=== PATIENT | female | born 1990 | race Caucasian/White ===

== ENCOUNTER 2020-02-14 08:45 | Outpatient (REF) | payer BC, SELFPAY | END 2020-02-14 08:46 | disposition home or self-care (01) | LOC: HO.HMGCLDS 08:45 | PROVIDERS: PCP Nurse Practitioner Family; Visit Provider Internal Medicine | DX: Z20.828 Contact with and (suspected) exposure to other viral communicable diseases (principal) | CPT/HCPCS: C9803; U0003 ==

== ENCOUNTER 2020-02-26 06:13 | Outpatient (REF) | payer BC, SELFPAY ==
[2020-02-26 11:38] LABS: Alanine Aminotransferase 12 U/L (0-31); Albumin Level 4.2 g/dL (3.5-5.0); Alkaline Phosphatase 62 U/L (39-117); Anion Gap 13 (12-20); Aspartate Amino Transferase 13 U/L (5-31); Bilirubin Total 0.6 mg/dL (0.0-1.0); Blood Urea Nitrogen 9 mg/dL (9-16); Calcium 9.1 mg/dL (8.4-10.2); Carbon Dioxide 26 mmol/L (22-29); Chloride 105 mmol/L (96-108); Estimated Glomerular Filt Rate > 60; Glucose Fasting 83 mg/dL (60-99); Potassium 4.3 mmol/l (3.3-5.1); Sodium 140 mmol/L (135-145); Total Protein 7.4 g/dL (6.5-8.0)
[2020-02-26 12:02] LABS: TSH reflex Free T4 6.54 mIU/mL (0.32-4.0)
[2020-02-26 12:45] LABS: Free T4 (Free Thyroxine) 0.83 ng/dL (0.71-1.85)
== END 2020-02-26 06:14 | disposition home or self-care (01) ==
LOC: HO.HMGCLDS 06:13
PROVIDERS: PCP Nurse Practitioner Family; Visit Provider Nurse Practitioner Family
DX: E03.9 Hypothyroidism, unspecified (principal)
CPT/HCPCS: 80053; 84439; 84443

== ENCOUNTER 2020-04-16 09:44 | Outpatient (REF) | payer BC, SELFPAY ==
--- NOTE | 2020-04-16 09:56 | XR_ITS ---
EXAMINATION: XR CHEST CLINICAL INFORMATION: Epigastric pain COMPARISON: Previous chest x-ray June 2018 TECHNIQUE: 2 views of the chest were obtained. FINDINGS: No significant abnormality is noted involving the heart, lungs, mediastinum, bony thorax or soft tissues. XR/XR chest 2V IMPRESSION: Unremarkable examination.
[2020-04-16 11:08] LABS: MANUAL DIFF FLAG NO
[2020-04-16 11:23] LABS: Basophils Absolute Auto 0.1 X10*3/uL (0.0-0.2); Basophils Percent Auto 1.1 % (0-2); Eosinophils Absolute Auto 0.1 X10*3/uL (0.0-0.4); Eosinophils Percent Auto 1.1 % (0-4); Hemoglobin 13.6 g/dl (12.0-16.0); Imm Gran Abs Auto 0.02 X10*3/uL (0.00-0.03); Imm Gran Pct Auto 0.3 % (0.0-0.4); Lymphocytes Absolute Auto 2.1 X10*3/uL (1.2-4.9); Lymphocytes Percent Auto 33.2 % (20-40); Mean Corpuscular HGB Conc 32.4 g/dl (31.0-35.0); Mean Corpuscular Hemoglobin 29.6 pg (27.0-33.0); Mean Corpuscular Volume 91.5 fL (80-98); Mean Platelet Volume 10.2 fL (9.4-12.3); Monocytes Absolute Auto 0.4 X10*3/uL (0.1-1.2); Monocytes Percent Auto 5.8 % (2-11); Neutrophils Absolute Auto 3.6 X10*3/uL (2.0-8.3); Neutrophils Percent Auto 58.5 % (45-73); Platelet Count 391 X10*3/uL (160-400); Red Blood Count 4.59 X10*6/uL (4.20-5.50); Red Cell Distribution Width 12.4 % (11.0-16.0); White Blood Count 6.2 X10*3/uL (4.8-10.8)
[2020-04-16 11:39] LABS: Troponin-I High Sensitivity < 3.5 ng/L (<3.5-17.0)
[2020-04-16 12:16] LABS: Alanine Aminotransferase 22 U/L (0-31); Albumin Level 4.4 g/dL (3.5-5.0); Alkaline Phosphatase 66 U/L (39-117); Anion Gap 14 (12-20); Bilirubin Total 0.5 mg/dL (0.0-1.0); Blood Urea Nitrogen 11 mg/dL (9-16); Calcium 9.3 mg/dL (8.4-10.2); Carbon Dioxide 25 mmol/L (22-29); Chloride 105 mmol/L (96-108); Estimated Glomerular Filt Rate > 60; Glucose Fasting 88 mg/dL (60-99); Potassium 4.1 mmol/l (3.3-5.1); Sodium 140 mmol/L (135-145); Total Protein 7.7 g/dL (6.5-8.0)
[2020-04-16 12:17] LABS: TSH reflex Free T4 3.49 mIU/mL (0.32-4.0)
[2020-04-16 12:26] LABS: Amylase 31 U/L (28-100); Lipase 22 U/L (8-78)
[2020-04-16 12:32] LABS: Aspartate Amino Transferase 17 U/L (5-31)
== END 2020-04-16 09:45 | disposition home or self-care (01) ==
LOC: HO.HMGCLDS 09:44
PROVIDERS: PCP Nurse Practitioner Family; Visit Provider Nurse Practitioner Family
DX: R10.13 Epigastric pain (principal); E03.9 Hypothyroidism, unspecified
CPT/HCPCS: 36415; 71046; 80053; 82150; 83690; 84443; 84484; 85025

== ENCOUNTER 2020-04-22 10:43 | Outpatient (REF) | payer BC, SELFPAY ==
--- NOTE | 2020-04-22 10:50 | US_ITS ---
EXAMINATION: US DIAGNOSTIC ULTRASOUND BREAST, LEFT CLINICAL INFORMATION: Palpable mass. COMPARISON: Mammography of same day and studies dating back to December 27, 2018. TECHNIQUE: Ultrasound of the breast is performed with real-time mccormack scale imaging and color Doppler. FINDINGS: Targeted left breast ultrasound was then performed in region of palpable abnormality. Region is approximately 8 to 9:00 position 8 cm from the nipple. No abnormal cystic or solid mass was identified. No abnormal region of distal sound shadowing. Results are discussed with the patient at time of visit. US/US breast LT limited IMPRESSION: No specific mammographic or ultrasound findings to suggest malignancy. ASSESSMENT: BI-RADS 1: Negative RECOMMENDATION: 1. Patient should be managed based on the clinical impression. 2. Otherwise, routine annual screening mammography.
--- NOTE | 2020-04-22 10:50 | MM_ITS ---
EXAMINATION: MM DIAGNOSTIC DIGITAL BREAST TOMOSYNTHESIS, BILATERAL Targeted left breast ultrasound CLINICAL INFORMATION: Left breast lump The lifetime risk of breast cancer based on the Tyrer-Cuzick Model is 9.2%. COMPARISON: Mammography: May 12, 2019 and studies dating back to December 27, 2018 TECHNIQUE: Digital breast tomosynthesis is performed in both the craniocaudal and mediolateral oblique views along with computer-aided detection (CAD). Synthesized 2D images are generated from the tomosynthesis. Targeted left breast ultrasound FINDINGS: There are scattered areas of fibroglandular density (ACR BI-RADS breast composition Category b). There are some anterior right breast vascular calcifications present. There is a stable well-circumscribed 4 mm deep superior left breast lesion 12:00 position. No new suspicious dominant mass or suspicious grouping of microcalcifications appreciated. Targeted left breast ultrasound was then performed in region of palpable abnormality. Region is approximately 8 to 9:00 position 8 cm from the nipple. No abnormal cystic or solid mass was identified. No abnormal region of distal sound shadowing. Results are discussed with the patient at time of visit. MM/MM tomosynthesis diagnostic BI IMPRESSION: No specific mammographic or ultrasound findings to suggest malignancy. ASSESSMENT: BI-RADS 1: Negative RECOMMENDATION: 1. Patient should be managed based on the clinical impression. 2. Otherwise, routine annual screening mammography. This patient's information was entered into a reminder system with a target due date for their next mammogram.
== END 2020-04-22 10:44 | disposition home or self-care (01) ==
LOC: HO.MAMMO 10:43
PROVIDERS: PCP Nurse Practitioner Family; Visit Provider Nurse Practitioner Family
DX: N63.20 Unspecified lump in the left breast, unspecified quadrant (principal)
CPT/HCPCS: 76642; 77062; 77066

== ENCOUNTER 2020-05-28 15:14 | Outpatient (REF) | payer BC, SELFPAY ==
[2020-05-28 16:31] LABS: MANUAL DIFF FLAG NO
[2020-05-28 16:35] LABS: Basophils Absolute Auto 0.1 X10*3/uL (0.0-0.2); Basophils Percent Auto 0.9 % (0-2); Eosinophils Absolute Auto 0.1 X10*3/uL (0.0-0.4); Eosinophils Percent Auto 0.8 % (0-4); Hematocrit 40.9 % (37-47); Hemoglobin 13.7 g/dl (12.0-16.0); Imm Gran Abs Auto 0.03 X10*3/uL (0.00-0.03); Imm Gran Pct Auto 0.4 % (0.0-0.4); Lymphocytes Absolute Auto 2.5 X10*3/uL (1.2-4.9); Mean Corpuscular HGB Conc 33.5 g/dl (31.0-35.0); Mean Corpuscular Hemoglobin 30.2 pg (27.0-33.0); Mean Corpuscular Volume 90.1 fL (80-98); Mean Platelet Volume 10.5 fL (9.4-12.3); Monocytes Absolute Auto 0.5 X10*3/uL (0.1-1.2); Monocytes Percent Auto 5.4 % (2-11); Neutrophils Absolute Auto 5.3 X10*3/uL (2.0-8.3); Neutrophils Percent Auto 62.5 % (45-73); Platelet Count 377 X10*3/uL (160-400); Red Blood Count 4.54 X10*6/uL (4.20-5.50); Red Cell Distribution Width 12.8 % (11.0-16.0); White Blood Count 8.5 X10*3/uL (4.8-10.8)
[2020-05-28 16:57] LABS: Alanine Aminotransferase 22 U/L (0-31); Albumin Level 4.7 g/dL (3.5-5.0); Alkaline Phosphatase 69 U/L (39-117); Anion Gap 14 (12-20); Aspartate Amino Transferase 19 U/L (5-31); Bilirubin Total 0.7 mg/dL (0.0-1.0); Blood Urea Nitrogen 10 mg/dL (9-16); Calcium 9.6 mg/dL (8.4-10.2); Carbon Dioxide 28 mmol/L (22-29); Chloride 103 mmol/L (96-108); Estimated Glomerular Filt Rate > 60; Glucose Random 81 mg/dL (60-115); Lipase 25 U/L (8-78); Potassium 4.1 mmol/L (3.3-5.1); Sodium 141 mmol/L (135-145); Total Protein 7.9 g/dL (6.5-8.0)
== END 2020-05-28 15:15 | disposition home or self-care (01) ==
LOC: HO.HMGCLDS 15:14
PROVIDERS: PCP Nurse Practitioner Family; Visit Provider Nurse Practitioner Family
DX: R10.11 Right upper quadrant pain (principal)
CPT/HCPCS: 36415; 80053; 83690; 85025

== ENCOUNTER → 2020-05-31 09:38 | Outpatient (BNVA) | payer BC, SELFPAY | PROVIDERS: Visit Provider Advanced Practice Midwife ==

== ENCOUNTER → 2020-06-12 14:38 | Outpatient (BNVA) | payer BC, SELFPAY | PROVIDERS: Visit Provider Advanced Practice Midwife | DX: Z30.42 Encounter for surveillance of injectable contraceptive (principal) | CPT/HCPCS: 96372; J1050 ==

== ENCOUNTER 2020-06-15 20:48 | Emergency (ER) | payer BC, SELFPAY ==
--- NOTE | ~2020-06-15 | CT_ITS ---
EXAMINATION: CT ABDOMEN AND PELVIS WITHOUT CONTRAST CLINICAL INFORMATION: Right flank pain COMPARISON: None TECHNIQUE: Multidetector volumetric imaging was performed from the superior aspect of the liver through the pubic symphysis. Sagittal and coronal reformatted images were obtained on the technologist's workstation. This CT examination was performed using dose optimization techniques as appropriate, variously including the following: *Automated exposure control *Adjustment of mA and/or kV according to patient size (this includes techniques or standardized protocols for targeted exams where dose is matched to indication/reason for exam; i.e. extremities or head) *Use of iterative reconstruction technique DLP: 749 mGy-cm FINDINGS: The lack of intravenous contrast limits evaluation of the solid visceral organs including the liver, spleen, pancreas, and kidneys. LUNG BASES: The visualized lung bases are unremarkable. LIVER, GALLBLADDER, AND BILIARY TREE: Limited non-contrast evaluation is normal. No gross focal hepatic lesion. Normal liver size and contour. No gross biliary ductal dilation. The gallbladder is unremarkable with no evidence of radiopaque gallstones, gallbladder wall thickening, or obvious pericholecystic inflammatory changes. PANCREAS: Limited non-contrast evaluation is normal. No kilo-pancreatic fluid. SPLEEN: Limited non-contrast evaluation is normal. ADRENAL GLANDS: Normal; no adrenal mass. KIDNEYS AND URETERS: Limited non-contrast evaluation is normal. No hydronephrosis, hydroureter, or calculi seen. No perinephric stranding. GASTROINTESTINAL TRACT: Small bowel and colon are non-dilated. No bowel wall thickening. No pericolonic inflammatory changes to suggest colitis or diverticulitis. Normal appendix. ABDOMINAL WALL: No hernia seen. LYMPH NODES: No pathologically enlarged lymph nodes in the abdomen or pelvis. VASCULAR: Normal caliber abdominal aorta. BLADDER: Unremarkable. PELVIC VISCERA: Normal noncontrast appearance of the uterus and ovaries. OSSEOUS STRUCTURES: No acute or suspicious osseous abnormalities. CT/CT abdomen pelvis wo con IMPRESSION: No acute CT findings. No radiopaque urolithiasis or evidence of obstructive uropathy. Normal appendix.
[2020-06-15 20:50] VITALS: BP 136/86; PULSE 94; RESP 16; TEMP 36.8; O2SAT 98; BMI 36.6
[2020-06-15 21:06] LABS: MANUAL DIFF FLAG NO
[2020-06-15 21:10] LABS: Basophils Absolute Auto 0.1 X10*3/uL (0.0-0.2); Basophils Percent Auto 0.8 % (0-2); Eosinophils Absolute Auto 0.1 X10*3/uL (0.0-0.4); Eosinophils Percent Auto 1.2 % (0-4); Hematocrit 38.4 % (37-47); Imm Gran Abs Auto 0.03 X10*3/uL (0.00-0.03); Imm Gran Pct Auto 0.4 % (0.0-0.4); Lymphocytes Absolute Auto 3.2 X10*3/uL (1.2-4.9); Lymphocytes Percent Auto 38.7 % (20-40); Mean Corpuscular HGB Conc 33.9 g/dl (31.0-35.0); Mean Corpuscular Hemoglobin 30.2 pg (27.0-33.0); Mean Corpuscular Volume 89.1 fL (80-98); Monocytes Absolute Auto 0.5 X10*3/uL (0.1-1.2); Monocytes Percent Auto 6.2 % (2-11); Neutrophils Absolute Auto 4.4 X10*3/uL (2.0-8.3); Neutrophils Percent Auto 52.7 % (45-73); Platelet Count 379 X10*3/uL (160-400); Red Blood Count 4.31 X10*6/uL (4.20-5.50); Red Cell Distribution Width 12.6 % (11.0-16.0); White Blood Count 8.3 X10*3/uL (4.8-10.8)
[2020-06-15 21:17] LABS: Glucose Urine UA NEG (NEG); Leukocyte Esterase Urine NEG (NEG); Nitrite Urine NEG (NEG); Specific Gravity - Urine >= 1.030 (1.005-1.025); Urine Blood TRACE (NEG); Urine Ketones NEG (NEG); Urine Protein NEG (NEG-TRACE)
[2020-06-15 21:23] LABS: Appearance Urine CLEAR; Color Urine YELLOW
[2020-06-15 21:27] LABS: Alanine Aminotransferase 24 U/L (0-31); Albumin Level 4.5 g/dL (3.5-5.0); Alkaline Phosphatase 60 U/L (39-117); Anion Gap 13 (12-20); Aspartate Amino Transferase 22 U/L (5-31); Bilirubin Total 0.6 mg/dL (0.0-1.0); Blood Urea Nitrogen 13 mg/dL (9-16); Calcium 9.3 mg/dL (8.4-10.2); Carbon Dioxide 24 mmol/L (22-29); Chloride 106 mmol/L (96-108); Creatinine Clr Calc Pharmacy 108.4; Estimated Glomerular Filt Rate > 60; Glucose Random 93 mg/dL (60-115); Lipase 29 U/L (8-78); Potassium 3.6 mmol/L (3.3-5.1); Sodium 139 mmol/L (135-145); Total Protein 7.7 g/dL (6.5-8.0)
[2020-06-15 21:34] LABS: Bacteria Urine TRACE /LPF; Squamous Epithelial Cell Urine TRACE /LPF; WBC Urine 0-2 /HPF (0-4)
[2020-06-15 21:35] LABS: UPreg QC Valid YES; Urine Pregnancy NEGATIVE (NEGATIVE)
[2020-06-15 22:16] VITALS: BP 129/85; PULSE 88; RESP 18; TEMP 36.4; O2SAT 99
--- NOTE | 2020-06-15 22:20 | ED.ABDPAIN ---
HPI - Abdominal Pain General Chief Complaint: Abdominal Pain Stated Complaint: Flank pain Time Seen by Provider: 06/15/20 22:15 Source: patient Mode of arrival: ambulatory Limitations: no limitations History of Present Illness HPI narrative: 30-year-old female with hypothyroidism presents with right upper quadrant pain for several months. She was afraid to come to the emergency department earlier because of COVID-19 restrictions. She states that the pain is worse when she eats fatty foods. She did see her primary care physician who ordered a CT scan outpatient. She presents today because it has been several months and she has not received a CT scan appointment, and her pain is 10/10. She was unable to eat today because of the pain. She does not report any fevers, chills, nausea, vomiting, abdominal distention, chest pain or pressure, palpitations, shortness of breath, shortness of breath on exertion, edema, or any other concerning symptoms. MD elicited complaint: abdominal pain Onset (ago): month(s) Pain Consistency: intermittent and colicky Location: RUQ Severity: severe Quality: stabbing Radiation: R flank and back Exacerbating factors: eating and movement Associated symptoms: anorexia Treatments prior to arrival: NSAIDs and antacids Related Data Patient : No Previous Rx's Medication Instructions Recorded levothyroxine 112 mcg tablet 112 mcg PO DAILY #90 tab 02/28/20 medroxyprogesterone 150 mg/mL 150 mg IM [id number] #1 ml 05/31/20 intramuscular suspension Allergies Allergy/AdvReac Type Severity Reaction Status Date / Time codeine Allergy Unknown nausea and Verified 06/15/20 20:49 vomiting Review of Systems Review of Systems Constitutional: No Weight loss, No Fever, No Chills, No Night Sweats, No Fatigue, No Malaise ENT/Mouth: No Hearing loss, No Ear Pain, No Nasal Congestion, No Sinus Pain, No Hoarseness, No sore throat, No Rhinorrhea, No Swallowing Difficulty Eyes: No Eye Pain, No Swelling, No Redness, No Foreign Body, No Discharge, No Vision Changes Cardiovascular: No Chest Pain, No SOB, No Dyspnea on Exertion, No Orthopnea, No Edema, No Palpitations Respiratory: No Cough, No Sputum, No Wheezing, No Smoke Exposure, No Dyspnea Gastrointestinal: Positive Nausea, no Vomiting, no Diarrhea, positive right upper quadrant abdominal Pain, No Hematochezia, No Melena Genitourinary: no irregular bleeding, No Dysuria, No Urinary Frequency, No Hematuria, No Urinary Incontinence, No Urgency, No Flank Pain, No Urinary Flow Changes, No Hesitancy Musculoskeletal: No joint pain, No Myalgias, No Joint Swelling Skin: No Skin Lesions, No rash Neuro: No Weakness, No Numbness, No Paresthesias, No Loss of Consciousness, No Dizziness, No Headache Psych: No Anxiety/Panic, No Depression, No SI/HI/AH/VH, No Social Issues Heme/Lymph: No Bruising, No Bleeding,No Lymphadenopathy Endocrine: No Polyuria, No Polydipsia, No Temperature Intolerance Yes all other systems are reviewed and are negative Physical Exam Vital Signs: Vital Signs: Last Vital Signs Temp 97.6 F 06/16/20 01:06 Pulse 88 06/16/20 01:06 Resp 16 06/16/20 01:06 BP 114/71 06/16/20 01:06 Pulse Ox 98 06/16/20 01:06 Body Mass Index 36.6 Appearance: Alert. Oriented X3. Moderate distress. Eyes: Pupils equal, round and reactive to light. EOMI, sclera nonicteric ENT: Pharynx normal. Moist mucous membranes Neck: Normal inspection. Neck supple. CVS: Normal heart rate and rhythm. Pulses normal. Respiratory: No respiratory distress. Lung sounds clear to auscultation all lobes Abdomen: Soft and positive Lugo's, negative McBurney's, negative psoas Skin: Skin warm and dry. Normal skin color. Normal skin turgor. Extremities: No lower extremity edema. Moves all extremities against resistance Neuro: No motor deficit. No sensory deficit. Cranial nerves 2-12 intact, no focal neural deficits Course Course Course Narrative: 30-year-old female with hypothyroidism presents with several months of intermittent colicky right upper quadrant pain. Worsening with fatty foods, positive Lugo's sign. Will order CBC, Chem 7, lipase, urinalysis, test and CT abdomen pelvis. Labs are unremarkable, patient is not , urinalysis is negative. CT of abdomen negative for acute findings requiring emergent intervention. This could possibly be biliary colic. Will have patient follow-up with primary care physician and possible outpatient surgery if symptoms persist. Will give low-fat diet information. Patient verbalized understanding of and agrees to plan of care discharge home. MDM - Abdominal Pain Differential Diagnosis Differential diagnosis: Likely abdominal pain, acute appendicitis, calculus of kidney, diverticulitis, endometriosis, gastritis, ovarian cyst, pancreatitis and renal colic Medical Records Attestation: I reviewed the patient's medical records. Lab Data Attestation: I reviewed the patient's lab results. Result diagrams: 06/15/20 21:01 06/15/20 21:01 Labs: Lab Results 06/15/20 06/15/20 06/15/20 Range/Units 21: 21: 21:01 WBC 8.3 (4.8-10.8) X10*3/uL RBC 4.31 (4.20-5.50) X10*6/uL Hgb 13.0 (12.0-16.0) g/dl Hct 38.4 (37-47) % MCV 89.1 (80-98) fL MCH 30.2 (27.0-33.0) pg MCHC 33.9 (31.0-35.0) g/dl RDW 12.6 (11.0-16.0) % Plt Count 379 (160-400) X10*3/uL MPV 10.0 (9.4-12.3) fL Immature Gran % (Auto) 0.4 (0.0-0.4) % Neut % (Auto) 52.7 (45-73) % Lymph % (Auto) 38.7 (20-40) % Walsh % (Auto) 6.2 (2-11) % Eos % (Auto) 1.2 (0-4) % Baso % (Auto) 0.8 (0-2) % Lymph # (Auto) 3.2 (1.2-4.9) X10*3/uL Walsh # (Auto) 0.5 (0.1-1.2) X10*3/uL Eos # (Auto) 0.1 (0.0-0.4) X10*3/uL Baso # (Auto) 0.1 (0.0-0.2) X10*3/uL Abs Immat Gran (auto) 0.03 (0.00-0.03) X10*3/uL Absolute Neuts (auto) 4.4 (2.0-8.3) X10*3/uL Absolute Nucleated RBC 0.000 (0.0-0.012) X10*3/uL Nucleated RBC % (auto) 0.0 (0.0-0.2) /100WBC Hold Blue Top SEE NOTE Sodium 139 (135-145) mmol/L Potassium 3.6 (3.3-5.1) mmol/L Chloride 106 (96-108) mmol/L Carbon Dioxide 24 (22-29) mmol/L Anion Gap 13 (12-20) BUN 13 (9-16) mg/dL Creatinine 0.78 (0.5-1.4) mg/dL Estim Creat Clear Calc 108.4 Estimated GFR > 60 Random Glucose 93 (60-115) mg/dL Calcium 9.3 (8.4-10.2) mg/dL Total Bilirubin 0.6 (0.0-1.0) mg/dL AST 22 (5-31) U/L ALT 24 (0-31) U/L Alkaline Phosphatase 60 (39-117) U/L Total Protein 7.7 (6.5-8.0) g/dL Albumin 4.5 (3.5-5.0) g/dL Lipase 29 (8-78) U/L Urine Color Urine Appearance Urine pH (5.0-8.0) Ur Specific Gravette (1.005-1.025) Urine Protein (NEG-TRACE) MG/DL Urine Glucose (UA) (NEG) MG/DL Urine Ketones (NEG) MG/DL Urine Blood (NEG) Urine Nitrite (NEG) Ur Leukocyte Esterase (NEG) Urine RBC (0) /HPF Urine WBC (0-4) /HPF Ur Squamous Epith Cells /LPF Urine Bacteria /LPF Urine Test (NEGATIVE) 06/15/20 06/15/20 Range/Units 21:07 21:07 WBC (4.8-10.8) X10*3/uL RBC (4.20-5.50) X10*6/uL Hgb (12.0-16.0) g/dl Hct (37-47) % MCV (80-98) fL MCH (27.0-33.0) pg MCHC (31.0-35.0) g/dl RDW (11.0-16.0) % Plt Count (160-400) X10*3/uL MPV (9.4-12.3) fL Immature Gran % (Auto) (0.0-0.4) % Neut % (Auto) (45-73) % Lymph % (Auto) (20-40) % Walsh % (Auto) (2-11) % Eos % (Auto) (0-4) % Baso % (Auto) (0-2) % Lymph # (Auto) (1.2-4.9) X10*3/uL Walsh # (Auto) (0.1-1.2) X10*3/uL Eos # (Auto) (0.0-0.4) X10*3/uL Baso # (Auto) (0.0-0.2) X10*3/uL Abs Immat Gran (auto) (0.00-0.03) X10*3/uL Absolute Neuts (auto) (2.0-8.3) X10*3/uL Absolute Nucleated RBC (0.0-0.012) X10*3/uL Nucleated RBC % (auto) (0.0-0.2) /100WBC Hold Blue Top Sodium (135-145) mmol/L Potassium (3.3-5.1) mmol/L Chloride (96-108) mmol/L Carbon Dioxide (22-29) mmol/L Anion Gap (12-20) BUN (9-16) mg/dL Creatinine (0.5-1.4) mg/dL Estim Creat Clear Calc Estimated GFR Random Glucose (60-115) mg/dL Calcium (8.4-10.2) mg/dL Total Bilirubin (0.0-1.0) mg/dL AST (5-31) U/L ALT (0-31) U/L Alkaline Phosphatase (39-117) U/L Total Protein (6.5-8.0) g/dL Albumin (3.5-5.0) g/dL Lipase (8-78) U/L Urine Color YELLOW Urine Appearance CLEAR Urine pH 6.0 (5.0-8.0) Ur Specific Gravette >= 1.030 H (1.005-1.025) Urine Protein NEG (NEG-TRACE) MG/DL Urine Glucose (UA) NEG (NEG) MG/DL Urine Ketones NEG (NEG) MG/DL Urine Blood TRACE (NEG) Urine Nitrite NEG (NEG) Ur Leukocyte Esterase NEG (NEG) Urine RBC 1-4 (0) /HPF Urine WBC 0-2 (0-4) /HPF Ur Squamous Epith Cells TRACE /LPF Urine Bacteria TRACE /LPF Urine Test NEGATIVE (NEGATIVE) Imaging Data CT scan - abdomen: Attestation: I personally reviewed and interpreted this imaging study as follows: Radiologist's impression: EXAMINATION: CT ABDOMEN AND PELVIS WITHOUT CONTRAST CLINICAL INFORMATION: Right flank pain COMPARISON: None TECHNIQUE: Multidetector volumetric imaging was performed from the superior aspect of the liver through the pubic symphysis. Sagittal and coronal reformatted images were obtained on the technologist's workstation. This CT examination was performed using dose optimization techniques as appropriate, variously including the following: *Automated exposure control *Adjustment of mA and/or kV according to patient size (this includes techniques or standardized protocols for targeted exams where dose is matched to indication/reason for exam; i.e. extremities or head) *Use of iterative reconstruction technique DLP: 749 mGy-cm FINDINGS: The lack of intravenous contrast limits evaluation of the solid visceral organs including the liver, spleen, pancreas, and kidneys. LUNG BASES: The visualized lung bases are unremarkable. LIVER, GALLBLADDER, AND BILIARY TREE: Limited non-contrast evaluation is normal. No gross focal hepatic lesion. Normal liver size and contour. No gross biliary ductal dilation. The gallbladder is unremarkable with no evidence of radiopaque gallstones, gallbladder wall thickening, or obvious pericholecystic inflammatory changes. PANCREAS: Limited non-contrast evaluation is normal. No kilo-pancreatic fluid. SPLEEN: Limited non-contrast evaluation is normal. ADRENAL GLANDS: Normal; no adrenal mass. KIDNEYS AND URETERS: Limited non-contrast evaluation is normal. No hydronephrosis, hydroureter, or calculi seen. No perinephric stranding. GASTROINTESTINAL TRACT: Small bowel and colon are non-dilated. No bowel wall thickening. No pericolonic inflammatory changes to suggest colitis or diverticulitis. Normal appendix. ABDOMINAL WALL: No hernia seen. LYMPH NODES: No pathologically enlarged lymph nodes in the abdomen or pelvis. VASCULAR: Normal caliber abdominal aorta. BLADDER: Unremarkable. PELVIC VISCERA: Normal noncontrast appearance of the uterus and ovaries. OSSEOUS STRUCTURES: No acute or suspicious osseous abnormalities. CT/CT abdomen pelvis wo con IMPRESSION: No acute CT findings. No radiopaque urolithiasis or evidence of obstructive uropathy. Normal appendix. Discharge Plan Discharge Clinical Impression: RUQ pain Patient Disposition: Home, Self-Care Instructions: Biliary Colic (ED), Low Fat Diet (ED), Abdominal Pain (ED) Additional Instructions: You were evaluated for right upper quadrant abdominal pain. CT scan of the abdomen is negative for acute findings requiring emergent intervention. Based on description of your pain, please follow a low-fat diet as this sounds like biliary colic. You may consider following up with the surgeon on an outpatient basis for your primary care physician for further evaluation Thank you for choosing this emergency department for evaluation. Please follow-up with primary care physician as needed. Return to the emergency department for any new, concerning, or worsening symptoms. Prescriptions: No Action levothyroxine [Levo-T] 112 mcg tablet 112 mcg PO DAILY Qty: 90 RF: 0 medroxyprogesterone [Depo-Provera] 150 mg/mL suspension 150 mg IM [id number] Qty: 1 RF: 3 Interventions: ED Discharge Assessment Last Done: 06/16/20 01:20 Discharge Date/Time: 06/16/20 01:22 [facility] Past Medical History Attestation statement: The following information was validated with the patient. Source: old records reviewed Medical History Acquired hypothyroidism Bilateral headaches Irregular menses Recurrent major depressive disorder in partial remission Surgical History History of tooth extraction Family History Family History Father No problems noted. Mother Multiple sclerosis Social History Social History Alcohol intake: current Alcohol intake frequency: holidays/special occasions only Smoking Status: Never smoker Use of substances other than those prescribed or required for medical reasons: No Advance Directives: No Advance Directives Information Provided: No
[2020-06-15] MEDS: 0.9 % Sodium Chloride 1,000 ML 999 ML IVCONT (22:58)
[2020-06-15] MEDS: Ketorolac Tromethamine 30 MG/ML VIAL IVPUSH (23:05)
[2020-06-15] MEDS: ondansetron HCL 4 MG/2 ML VIAL IVPUSH (23:05)
[2020-06-16] VITALS: PULSE 80; RESP 18
[2020-06-16 01:06] VITALS: BP 114/71; PULSE 88; RESP 16; TEMP 36.4; O2SAT 98
== END 2020-06-16 01:22 | disposition home or self-care (01) ==
PROVIDERS: Emergency Provider Student in an Organized Health Care Education/Training Program; PCP Nurse Practitioner Family
DX: R10.11 Right upper quadrant pain (principal); R63.0 Anorexia; E03.9 Hypothyroidism, unspecified; Z79.899 Other long term (current) drug therapy
CPT/HCPCS: 36415; 74176; 80053; 81001; 81025; 83690; 85025; 96365; 96375; 99284; J1885; J2405

== ENCOUNTER → 2020-06-26 10:36 | Outpatient (REF) | payer BC, SELFPAY ==
--- NOTE | ~2020-06-26 | NM_ITS ---
EXAMINATION: BILIARY TRACT IMAGING STUDY WITH CCK CLINICAL INFORMATION: Right upper quadrant pain.. COMPARISON: No previous biliary scan is available for comparison. The diagnostic CT scan of the abdomen and pelvis, dated 06/15/2020, is available for comparison.. TECHNIQUE: Serial gamma scintillation camera images were obtained over the abdomen for a total observation period of 126 minutes following the intravenous administration of 5 mCi Tc-99m Mebrofenin. FINDINGS: There is good concentration of activity in the liver by 5 minutes post injection. Biliary activity is visualized by 20 minutes. The gallbladder is well visualized by 55 minutes. Small bowel is well visualized by 30 minutes. At 90 minutes post radiopharmaceutical injection, a 30-minute infusion of 1.8 micrograms Sincalide was then begun and an additional 30 minutes of images were obtained. There is only minimal gallbladder emptying during the sincalide infusion. At the end of the study there is moderate abnormal retention of activity in the gallbladder but visualization of diffuse small bowel activity and almost complete clearance of activity from the liver. The calculated gallbladder ejection fraction is 21% (normal gallbladder ejection fraction is greater than 35%). NM/NM hepatobiliary w pharm IMPRESSION: 1. Visualization of the gallbladder is evidence of a patent cystic duct and strong evidence against the diagnosis of acute cholecystitis. The common bile duct is patent. Liver function appears normal. 2. Poor gallbladder emptying and a low gallbladder ejection fraction are evidence of impaired gallbladder contractility and most likely due to chronic cholecystitis.
== END ==
LOC: HO.NUCMED 10:36
PROVIDERS: PCP Nurse Practitioner Family; Visit Provider Nurse Practitioner Family
DX: R10.11 Right upper quadrant pain (principal); R10.13 Epigastric pain
CPT/HCPCS: 78227; A9537; J2805

== ENCOUNTER → 2020-07-04 14:12 | Outpatient (BNVA) | payer BC, SELFPAY | PROVIDERS: PCP Nurse Practitioner Family; Visit Provider Surgery ==

== ENCOUNTER 2020-07-24 08:51 | Outpatient (REF) | payer BC, SELFPAY ==
--- NOTE | ~2020-07-24 | US_ITS ---
EXAMINATION: US ABDOMEN LIMITED CLINICAL INFORMATION: Right flank pain. Chronic cholecystitis. COMPARISON: CT abdomen pelvis 06/15/2020. TECHNIQUE: Real-time imaging of the right upper quadrant abdominal viscera. FINDINGS: PANCREAS: Normal. LIVER: Liver echotexture is slightly increased The liver is normal in size. The liver contour is normal. No focal hepatic lesion. There is no intrahepatic biliary duct dilatation seen. GALLBLADDER: Normal. The gallbladder is physiologically distended without evidence of stones, sludge, polyps, wall thickening or pericholecystic fluid. COMMON BILE DUCT: Normal in caliber measuring 0.37 cm in diameter. RIGHT KIDNEY: Normal. No hydronephrosis. No renal calculi or focal parenchymal lesions. The kidney measures 12.5 cm in maximum dimension. FREE FLUID: None. US/US abdomen limited IMPRESSION: Slightly echogenic liver otherwise unremarkable exam.
== END 2020-07-24 08:52 | disposition home or self-care (01) ==
LOC: HO.US 08:51
PROVIDERS: Visit Provider Surgery
DX: R10.9 Unspecified abdominal pain (principal)
CPT/HCPCS: 76705

== ENCOUNTER → 2020-07-29 11:21 | Outpatient (BNVA) | payer BC, SELFPAY | PROVIDERS: PCP Nurse Practitioner Family; Visit Provider Surgery ==

== ENCOUNTER → 2020-08-02 08:57 | Outpatient (BNVA) | payer BC, SELFPAY | PROVIDERS: PCP Nurse Practitioner Family; Visit Provider Nurse Practitioner ==

== ENCOUNTER 2020-08-13 08:55 | Outpatient (REF) | payer BC, SELFPAY ==
--- NOTE | ~2020-08-13 | XR_ITS ---
EXAMINATION: XR THORACOLUMBAR SPINE CLINICAL INFORMATION: Mid thoracic spine pain. COMPARISON: None TECHNIQUE: AP and lateral views of the thoracic spine. FINDINGS: The vertebral alignment is normal. No intrinsic bony abnormality. The disc heights and neural foramina are well maintained. The endplates and posterior elements are normal. No fracture or subluxation. The surrounding prevertebral soft tissues are unremarkable. XR/XR thoracic spine 2V IMPRESSION: No compression fractures or subluxations are identified. The disc spaces are preserved. No endplate changes are seen. The prevertebral soft tissues are normal. The foramina are patent.
--- NOTE | ~2020-08-13 | XR_ITS ---
EXAMINATION: XR RIBS, BILATERAL CLINICAL INFORMATION: Bilateral rib pain. COMPARISON: Most recent chest radiograph dated 04/16/2020. TECHNIQUE: PA view of the chest as well as 3 views of the right and left ribs. FINDINGS: Lungs are clear. No consolidation, pneumothorax, or pleural effusion. The cardiomediastinal silhouette and pulmonary vasculature are normal. Osseous structures are unremarkable. Ribs are intact. No fractures are identified. XR/XR ribs BI 3V IMPRESSION: Unremarkable examination.
[2020-08-13 11:27] LABS: Appearance Urine HAZY; Color Urine YELLOW; Glucose Urine UA NEG (NEG); Leukocyte Esterase Urine NEG (NEG); Nitrite Urine NEG (NEG); PH 6.5 (5.0-8.0); Urine Blood NEG (NEG); Urine Ketones NEG (NEG); Urine Protein NEG (NEG-TRACE)
[2020-08-13 11:39] LABS: RBC Urine 0 /HPF (0); Squamous Epithelial Cell Urine 2+ /LPF; WBC Urine 0 /HPF (0-4)
[2020-08-13 11:40] LABS: Bacteria Urine 2+ /LPF; Mucus Urine 1+ /LPF
[2020-08-13 12:06] LABS: TSH reflex Free T4 6.36 uIU/mL (0.32-4.0)
[2020-08-13 12:11] LABS: Alanine Aminotransferase 14 U/L (0-31); Albumin Level 4.2 g/dL (3.5-5.0); Alkaline Phosphatase 53 U/L (39-117); Anion Gap 13 (12-20); Aspartate Amino Transferase 16 U/L (5-31); Bilirubin Total 0.8 mg/dL (0.0-1.0); Blood Urea Nitrogen 9 mg/dL (9-16); C Reactive Protein 0.32 mg/dL (< or = 0.50); Calcium 9.3 mg/dL (8.4-10.2); Carbon Dioxide 24 mmol/L (22-29); Chloride 105 mmol/L (96-108); Cholesterol 178 mg/dL; Estimated Glomerular Filt Rate > 60; Glucose Fasting 83 mg/dL (60-99); HDL Cholesterol 47 mg/dL; LDL Cholesterol Calculated 103 mg/dl; Potassium 4.1 mmol/L (3.3-5.1); Sodium 138 mmol/L (135-145); Triglycerides 140 mg/dL
[2020-08-13 12:46] LABS: Free T4 (Free Thyroxine) 0.79 ng/dL (0.71-1.85)
[2020-08-14 21:37] LABS: Gliadin Deamidated IgA Ab 3 Units; Gliadin Deamidated IgG Ab 2 Units
[2020-08-16 21:46] LABS: Transglutaminase Ab IgG 4 U/mL; Transglutaminase IgA 1 U/mL
== END 2020-08-13 08:56 | disposition home or self-care (01) ==
LOC: HO.HMGCX 08:55
PROVIDERS: PCP Nurse Practitioner Family; Visit Provider Nurse Practitioner
DX: Z00.00 Encounter for general adult medical examination without abnormal findings (principal); R07.81 Pleurodynia; M54.9 Dorsalgia, unspecified; R19.7 Diarrhea, unspecified; R10.9 Unspecified abdominal pain
CPT/HCPCS: 36415; 71110; 72070; 80053; 80061; 81001; 83516; 84439; 84443; 86140

== ENCOUNTER 2020-08-15 | Outpatient (REF) | payer BC, SELFPAY | END 2020-08-15 00:01 | disposition home or self-care (01) | LOC: HO.HMGCLNP | PROVIDERS: Visit Provider Nurse Practitioner | DX: M54.9 Dorsalgia, unspecified (principal); R10.9 Unspecified abdominal pain; R19.7 Diarrhea, unspecified | CPT/HCPCS: 87045; 87046 ==

== ENCOUNTER → 2020-08-28 14:39 | Outpatient (BNVA) | payer BC, SELFPAY | PROVIDERS: PCP Nurse Practitioner Family; Visit Provider Advanced Practice Midwife | DX: Z30.42 Encounter for surveillance of injectable contraceptive (principal) | CPT/HCPCS: 96372 ==

== ENCOUNTER 2020-10-17 09:47 | Outpatient (REF) | payer BC, SELFPAY ==
[2020-10-17 12:17] LABS: TSH reflex Free T4 5.21 uIU/mL (0.32-4.0)
[2020-10-17 13:25] LABS: Free T4 (Free Thyroxine) 1.03 ng/dL (0.71-1.85)
== END 2020-10-17 09:48 | disposition home or self-care (01) ==
LOC: HO.HMGCLDS 09:47
PROVIDERS: PCP Nurse Practitioner Family; Visit Provider Nurse Practitioner Family
DX: R79.89 Other specified abnormal findings of blood chemistry (principal)
CPT/HCPCS: 36415; 84439; 84443

== ENCOUNTER → 2020-11-18 08:48 | Outpatient (BNVA) | payer BC, SELFPAY | PROVIDERS: PCP Nurse Practitioner Family; Visit Provider Advanced Practice Midwife | DX: Z30.42 Encounter for surveillance of injectable contraceptive (principal) | CPT/HCPCS: 96372 ==

== ENCOUNTER 2021-01-09 08:26 | Outpatient (REF) | payer BC, SELFPAY ==
[2021-01-09 12:05] LABS: TSH reflex Free T4 1.02 uIU/mL (0.32-4.0)
== END 2021-01-09 08:27 | disposition home or self-care (01) ==
LOC: HO.HMGCLDS 08:26
PROVIDERS: PCP Nurse Practitioner Family; Visit Provider Nurse Practitioner Family
DX: R79.89 Other specified abnormal findings of blood chemistry (principal)
CPT/HCPCS: 36415; 84443

== ENCOUNTER → 2021-02-10 08:41 | Outpatient (BNVA) | payer BC, SELFPAY | PROVIDERS: PCP Nurse Practitioner Family; Visit Provider Advanced Practice Midwife | DX: Z30.42 Encounter for surveillance of injectable contraceptive (principal) | CPT/HCPCS: 96372 ==

== ENCOUNTER 2021-03-27 06:08 | Outpatient (REF) | payer BC, SELFPAY ==
[2021-03-27 08:25] LABS: Binax Internal Control QC Valid; Binax Now Covid-19 Ag Positive (Negative)
== END 2021-03-27 06:09 | disposition home or self-care (01) ==
LOC: HO.HMGCLDS 06:08
PROVIDERS: Visit Provider Internal Medicine
DX: Z20.822 Contact with and (suspected) exposure to COVID-19 (principal)
CPT/HCPCS: 36415; C9803

== ENCOUNTER 2021-04-15 10:42 | Outpatient (REF) | payer BC, SELFPAY ==
[2021-04-15 12:11] LABS: TSH reflex Free T4 1.36 uIU/mL (0.32-4.0)
[2021-04-15 12:19] LABS: Alanine Aminotransferase 15 U/L (0-31); Albumin Level 4.5 g/dL (3.5-5.0); Alkaline Phosphatase 65 U/L (39-117); Anion Gap 12 (12-20); Aspartate Amino Transferase 13 U/L (5-31); Bilirubin Total 0.9 mg/dL (0.0-1.0); Blood Urea Nitrogen 9 mg/dL (9-16); Calcium 9.8 mg/dL (8.4-10.2); Carbon Dioxide 25 mmol/L (22-29); Chloride 109 mmol/L (96-108); Cholesterol 179 mg/dL; Estimated Glomerular Filt Rate > 60; Glucose Fasting 93 mg/dL (60-99); HDL Cholesterol 37 mg/dL; LDL Cholesterol Calculated 114 mg/dl; Potassium 4.1 mmol/L (3.3-5.1); Sodium 142 mmol/L (135-145); Total Protein 7.8 g/dL (6.5-8.0); Triglycerides 142 mg/dL
[2021-04-15 13:51] LABS: Appearance Urine CLEAR; Color Urine YELLOW; Glucose Urine UA NEG (NEG); Leukocyte Esterase Urine NEG (NEG); Nitrite Urine NEG (NEG); Specific Gravity - Urine 1.025 (1.005-1.025); UACC Culture Trigger NO; Urine Blood 1+ (NEG); Urine Ketones NEG (NEG); Urine Protein NEG (NEG-TRACE)
[2021-04-15 14:20] LABS: RBC Urine 0-2 /HPF (0); WBC Urine 0 /HPF (0-4)
== END 2021-04-15 10:43 | disposition home or self-care (01) ==
LOC: HO.HMGCLDS 10:42
PROVIDERS: PCP Nurse Practitioner Family; Visit Provider Nurse Practitioner Family
DX: E03.9 Hypothyroidism, unspecified (principal); F41.9 Anxiety disorder, unspecified
CPT/HCPCS: 36415; 80053; 80061; 81001; 81003; 84443

== ENCOUNTER → 2021-04-28 08:25 | Outpatient (BNVA) | payer BC, SELFPAY | PROVIDERS: PCP Nurse Practitioner Family; Visit Provider Advanced Practice Midwife ==

== ENCOUNTER 2021-04-29 09:29 | Outpatient (REF) | payer BC, SELFPAY ==
[2021-04-29 12:29] LABS: Alanine Aminotransferase 13 U/L (0-31); Albumin Level 4.7 g/dL (3.5-5.0); Alkaline Phosphatase 63 U/L (39-117); Anion Gap 15 (12-20); Aspartate Amino Transferase 14 U/L (5-31); Blood Urea Nitrogen 9 mg/dL (9-16); Calcium 10.1 mg/dL (8.4-10.2); Carbon Dioxide 23 mmol/L (22-29); Chloride 107 mmol/L (96-108); Estimated Glomerular Filt Rate > 60; Glucose Random 98 mg/dL (60-115); Potassium 3.9 mmol/L (3.3-5.1); Sodium 141 mmol/L (135-145); Total Protein 8.1 g/dL (6.5-8.0)
[2021-04-29 12:37] LABS: TSH reflex Free T4 0.13 uIU/mL (0.32-4.0)
[2021-04-29 13:23] LABS: Free T4 (Free Thyroxine) 1.45 ng/dL (0.71-1.85)
== END 2021-04-29 09:30 | disposition home or self-care (01) ==
LOC: HO.HMGCLDS 09:29
PROVIDERS: PCP Nurse Practitioner Family; Visit Provider Nurse Practitioner Family
DX: F41.9 Anxiety disorder, unspecified (principal)
CPT/HCPCS: 36415; 80053; 84439; 84443

== ENCOUNTER → 2021-04-30 08:32 | Outpatient (BNVA) | payer BC, SELFPAY | PROVIDERS: Visit Provider Advanced Practice Midwife | DX: Z30.42 Encounter for surveillance of injectable contraceptive (principal) | CPT/HCPCS: 96372 ==

== ENCOUNTER 2021-05-03 10:54 | Emergency (ER) | payer BC, SELFPAY ==
[2021-05-03 11:05] VITALS: BP 139/86; PULSE 106; RESP 19; O2SAT 99; BMI 32.9
== END 2021-05-03 14:20 | disposition left against medical advice (07) ==
PROVIDERS: Emergency Provider Emergency Medicine; PCP Nurse Practitioner Family
DX: F41.9 Anxiety disorder, unspecified (principal); R00.2 Palpitations
CPT/HCPCS: 99281; 99282

== ENCOUNTER 2021-05-10 05:39 | Emergency (ER) | payer BC, SELFPAY ==
--- NOTE | ~2021-05-10 | XR_ITS ---
EXAMINATION: XR CHEST CLINICAL INFORMATION: Chest pain and cough COMPARISON: Bilateral rib x-rays including frontal chest August 13, 2020 TECHNIQUE: Frontal view of the chest was obtained. FINDINGS: Cardiac silhouette is normal in size. The lungs are well aerated. There is no lobar consolidation. No pleural effusion or pneumothorax. No gross osseous abnormality. XR/XR chest 1V IMPRESSION: No acute pulmonary pathology.
[2021-05-10 05:43] VITALS: BP 149/91; PULSE 99; RESP 20; TEMP 37; O2SAT 99; BMI 32.9
--- NOTE | 2021-05-10 05:48 | ECG_ITS ---
Test Reason : chest palpatations Blood Pressure : / mmHG Vent. Rate : 093 BPM Atrial Rate : 093 BPM P-R Int : 120 ms QRS Dur : 082 ms QT Int : 352 ms P-R-T Axes : 075 059 020 degrees QTc Int : 437 ms Normal sinus rhythm Cannot rule out Anterior infarct , age undetermined Abnormal ECG No previous ECGs available Referred By: Generic ED Physician Electronically Signed By:ANDRY CULVER MD
[2021-05-10 06:48] VITALS: BP 126/77; PULSE 93; RESP 26; O2SAT 100
--- NOTE | 2021-05-10 07:06 | ED.ARRPALP ---
HPI - Arrhythmia/Palpitations General Chief Complaint: Arrhythmia/Palpitations Stated Complaint: Heart Palp? Time Seen by Provider: 05/10/21 06:57 Source: patient Mode of arrival: ambulatory Limitations: no limitations History of Present Illness HPI narrative: 30-year-old female came in for evaluation of palpitation. Patient with a known history of anxiety and depression currently patient is in partial program for depression, came in complaining of intermittent palpitation that the patient feels with chest pressure, patient is already using a medication for depression and anxiety the patient claim it is not working, patient recently was diagnosed with COVID and has been coughing since of 4 weeks ago, otherwise decline fever, chills. Patient also declined recent travel or prolonged immobilization, no lower extremity swelling, no risk for DVT or PE. Patient feels depressed but no SI or plan for suicide. Related Data Previous Rx's Medication Instructions Recorded medroxyprogesterone 150 mg/mL 150 mg IM [id number] #1 ml 04/25/21 intramuscular suspension (Depo-Provera) buspirone 15 mg tablet 15 mg PO BID 30 Days #60 tab 04/28/21 clonazepam 0.5 mg tablet 0.25 mg PO BEDTIME #3 tab 04/28/21 clonazepam 0.5 mg tablet 0.25 mg PO BEDTIME #5 tab 04/28/21 levothyroxine 112 mcg tablet 112 mcg PO DAILY 90 Days #90 tab 04/29/21 buspirone 5 mg tablet See Rx Instructions PO TID 30 Days 05/02/21 #90 tab Allergies Allergy/AdvReac Type Severity Reaction Status Date / Time codeine Allergy Unknown nausea and Verified 04/28/21 11:48 vomiting Review of Systems Review of Systems: All other systems are reviewed and are negative Constitutional: Reports as per HPI and Reports no additional constitutional complaints Eyes: Reports as per HPI and Reports no additional eye complaints Reports system reviewed and no additional complaints, except as documented Cardiovascular: Reports as per HPI and Reports no additional cardiovascular complaints Respiratory: Reports as per HPI and Reports no additional respiratory complaints Gastrointestinal: Reports as per HPI and Reports no additional gastrointestinal complaints Genitourinary: Reports no additional female genitourinary complaints Musculoskeletal: Reports no additional musculoskeletal complaints Skin/Breast: Reports system reviewed and no additional complaints, except as docu Psychiatric: Reports no additional psychiatric complaints Endocrine: Reports no additional endocrine complaints Hematologic/Lymphatic: Reports no additional hematologic/lymphatic complaints Allergic/Immunologic: Reports no additional allergic/immunologic complaints Reports system reviewed and no additional complaints, except as documented and Reports Abnormal speech present [facility] Past Medical History Medical History Acquired hypothyroidism Bilateral headaches Irregular menses Recurrent major depressive disorder in partial remission Right flank pain Surgical History History of tooth extraction Family History Family History Father Cholesterol embolus syndrome Mother Multiple sclerosis Social History Social History Household Members: Spouse and Children Housing: House Alcohol intake: current Alcohol intake frequency: holidays/special occasions only Patient Tobacco Use Status: Former Tobacco user e-Cigarette/Vaping Use: Never Used Second Hand Smoke Exposure: Yes (sometimes ) Advance Directives: No Advance Directives Information Provided: Yes Patient : No service: No Current occupational status: unemployed Physical Exam Vital Signs: Vital Signs: Last Vital Signs Temp 98.6 F 05/10/21 05:43 Pulse 93 05/10/21 07:53 Resp 16 05/10/21 07:53 BP 120/72 05/10/21 07:53 Pulse Ox 100 05/10/21 07:53 BMI result Body Mass Index 32.9 Vital signs have been reviewed as appeared to be correct. Blood pressure normal. Heart rate normal. Respiration rate elevated. Temperature normal. Oxygen saturation normal. Appearance: Alert. Oriented X3. No acute distress. Anxious Head: Normal external exam. Normocephalic. Atraumatic. No Brown signs noted. No raccoon eyes noted Eyes: PERRLA. EOMI. Conjunctiva and sclera normal. Eyelids normal. ENT: TM's Normal. Pharynx normal. Uvula midline. Moist mucous membranes. No trismus noted. No drooling noted. No muffled voice noted. Neck: Normal inspection. Neck supple. FROM. No adenopathy. Thyroid Normal. No meningeal signs. No neck mass noted. CVS: Normal heart rate and rhythm. Heart sound normal. No murmurs noted. Pulses normal throughout. Respiratory: No respiratory distress. Painless inspiration. Breath sounds normal. No wheezes/rales/rhonchi noted. Chest nontender. No accessory muscle usage noted or decreased air movement noted. Abdomen: Soft and nontender. Bowel sounds normal in all 4 quadrants. No distention noted. No organomegaly noted. No visible injury noted. Back: No CVA tenderness. Full range of motion noted. Skin: Skin warm and dry. Normal skin color. Normal skin turgor. No rashes/lesions/lacerations noted. Extremities: No lower extremity edema. Extremities exhibit normal range of motion. Extremities nontender. Neuro: Oriented X 3. Cranial nerve exam: II-XII are grossly intact No motor deficit. No sensory deficit. Reflexes normal. Patient Appearance: Appropriate Patient Orientation: Person, Place, Time and Situation Level of Consciousness: Awake, Appropriate and Alert Patient Behavior: Talkative, Cooperative. Mood Description: Depressed. No SI or HI Affect Description: Flat. Patient Cognition Impaired: No Ability to Follow Directions: Good Speech Pattern: Spontaneous Speech Memory Description: Intact Hallucinations: Not present. Delusions: Not Present Thought Process: Logical. Thought Content: Unremarkable Depressive Symptoms: Increased anxiety. Judgement: Fair Course Course Course Narrative: Assessment and plan. 30-year-old female came in for evaluation of palpitation, patient appears anxious and depressed with no SI or HI. Patient's symptoms is likely contributed to anxiety, patient has unremarkable electrolytes, cardiac enzymes, and TSH. Will reassure discharge the patient to continue the partial program for her depression. Patient just went to the bathroom unable to give urine declined any UTI symptoms. MDM - Arrhythmia/Palpitations Medical Records Attestation: I reviewed the patient's medical records. Lab Data Attestation: I reviewed the patient's lab results. Result diagrams: 05/10/21 07:25 05/10/21 07:25 Labs: Lab Results 05/10/21 05/10/21 05/10/21 Range/Units 07:25 07:25 07:25 WBC 7.8 (4.8-10.8) X10*3/uL RBC 4.62 (4.20-5.50) X10*6/uL Hgb 13.8 (12.0-16.0) g/dl Hct 40.4 (37.0-47.0) % MCV 87.4 (80.0-98.0) fL MCH 29.9 (27.0-33.0) pg MCHC 34.2 (31.0-35.0) g/dl RDW 12.8 (11.0-16.0) % Plt Count 330 (160-400) X10*3/uL MPV 10.5 (9.4-12.3) fL Immature Gran % (Auto) 0.3 (0.0-0.4) % Neut % (Auto) 76.2 H (45-73) % Lymph % (Auto) 17.2 L (20-40) % Citrus % (Auto) 4.6 (2-11) % Eos % (Auto) 0.9 (0-4) % Baso % (Auto) 0.8 (0-2) % Lymph # (Auto) 1.4 (1.2-4.9) X10*3/uL Citrus # (Auto) 0.4 (0.1-1.2) X10*3/uL Eos # (Auto) 0.1 (0.0-0.4) X10*3/uL Baso # (Auto) 0.1 (0.0-0.2) X10*3/uL Abs Immat Gran (auto) 0.02 (0.00-0.03) X10*3/uL Absolute Neuts (auto) 6.0 (2.0-8.3) x10*3/uL Absolute Nucleated RBC 0.000 (0.0-0.012) X10*3/uL Nucleated RBC % (auto) 0.0 (0.0-0.2) /100WBC Sodium 141 (135-145) mmol/L Potassium 4.1 (3.3-5.1) mmol/L Chloride 110 H (96-108) mmol/L Carbon Dioxide 22 (22-29) mmol/L Anion Gap 13 (12-20) BUN 5 L (9-16) mg/dL Creatinine 0.78 (0.5-1.4) mg/dL Estim Creat Clear Calc 102.5 Estimated GFR > 60 Random Glucose 99 (60-115) mg/dL Calcium 10.1 (8.4-10.2) mg/dL Magnesium 2.0 (1.6-2.6) mg/dL Total Bilirubin 1.0 (0.0-1.0) mg/dL Direct Bilirubin 0.4 (0.0-0.5) mg/dL AST 15 (5-31) U/L ALT 14 (0-31) U/L Alkaline Phosphatase 57 (39-117) U/L Troponin I High Sens < 3.5 (<3.5-17.0) ng/L Total Protein 7.5 (6.5-8.0) g/dL Albumin 4.5 (3.5-5.0) g/dL Lipase 25 (8-78) U/L TSH (0.32-4.0) uIU/mL 05/10/21 Range/Units 07:25 WBC (4.8-10.8) X10*3/uL RBC (4.20-5.50) X10*6/uL Hgb (12.0-16.0) g/dl Hct (37.0-47.0) % MCV (80.0-98.0) fL MCH (27.0-33.0) pg MCHC (31.0-35.0) g/dl RDW (11.0-16.0) % Plt Count (160-400) X10*3/uL MPV (9.4-12.3) fL Immature Gran % (Auto) (0.0-0.4) % Neut % (Auto) (45-73) % Lymph % (Auto) (20-40) % Citrus % (Auto) (2-11) % Eos % (Auto) (0-4) % Baso % (Auto) (0-2) % Lymph # (Auto) (1.2-4.9) X10*3/uL Citrus # (Auto) (0.1-1.2) X10*3/uL Eos # (Auto) (0.0-0.4) X10*3/uL Baso # (Auto) (0.0-0.2) X10*3/uL Abs Immat Gran (auto) (0.00-0.03) X10*3/uL Absolute Neuts (auto) (2.0-8.3) x10*3/uL Absolute Nucleated RBC (0.0-0.012) X10*3/uL Nucleated RBC % (auto) (0.0-0.2) /100WBC Sodium (135-145) mmol/L Potassium (3.3-5.1) mmol/L Chloride (96-108) mmol/L Carbon Dioxide (22-29) mmol/L Anion Gap (12-20) BUN (9-16) mg/dL Creatinine (0.5-1.4) mg/dL Estim Creat Clear Calc Estimated GFR Random Glucose (60-115) mg/dL Calcium (8.4-10.2) mg/dL Magnesium (1.6-2.6) mg/dL Total Bilirubin (0.0-1.0) mg/dL Direct Bilirubin (0.0-0.5) mg/dL AST (5-31) U/L ALT (0-31) U/L Alkaline Phosphatase (39-117) U/L Troponin I High Sens (<3.5-17.0) ng/L Total Protein (6.5-8.0) g/dL Albumin (3.5-5.0) g/dL Lipase (8-78) U/L TSH 0.74 (0.32-4.0) uIU/mL Imaging Data Chest x-ray: Attestation: I personally reviewed and interpreted this imaging study as follows: Radiologist's impression: No acute pathology. ECG Data Attestation: I personally reviewed and interpreted this ECG as follows: Interpretation: Normal sinus rhythm at 93 beats per minute, normal axis deviation, normal intervals. Discharge Plan Discharge Clinical Impression: Palpitations, Anxiety Patient Disposition: Home, Self-Care Instructions: Anxiety (ED) Prescriptions: No Action medroxyprogesterone [Depo-Provera] 150 mg/mL suspension 150 mg IM [id number] Qty: 1 3RF buspirone 15 mg tablet 15 mg PO BID 30 Days Qty: 60 3RF Hold Instructions: Doctor's Order levothyroxine 112 mcg tablet 112 mcg PO DAILY 90 Days Qty: 90 0RF buspirone 5 mg tablet See Rx Instructions PO TID 30 Days Qty: 90 0RF Rx Instructions: Take one to two tablets 3 times a day. Max dose 30mg/day PO 3 times a day. clonazepam 0.5 mg tablet 0.25 mg PO BEDTIME Qty: 3 0RF Rx Instructions: administer 30 minutes before bedtime clonazepam 0.5 mg tablet 0.25 mg PO BEDTIME Qty: 5 0RF Rx Instructions: administer 30 minutes before bedtime Referrals: Physician,Nonstaff [Primary Care Provider] - 2 days
--- NOTE | 2021-05-10 07:11 | PC.NURSE ---
report taken from thien bautista pt here for several weeks of chest pressure and feeling of palpitations, newly on buspar for last two weeks. denies chest pain, sts discomfort . described as mid-sternal/r side, non radiating, non reproduceable. denies sob. appears comfortable in stretcher, tearful. describes increase in life stressors in this winter season.
[2021-05-10 07:29] LABS: MANUAL DIFF FLAG NO
[2021-05-10 07:31] LABS: Basophils Absolute Auto 0.1 X10*3/uL (0.0-0.2); Basophils Percent Auto 0.8 % (0-2); Eosinophils Absolute Auto 0.1 X10*3/uL (0.0-0.4); Eosinophils Percent Auto 0.9 % (0-4); Hematocrit 40.4 % (37.0-47.0); Hemoglobin 13.8 g/dl (12.0-16.0); Imm Gran Abs Auto 0.02 X10*3/uL (0.00-0.03); Imm Gran Pct Auto 0.3 % (0.0-0.4); Lymphocytes Absolute Auto 1.4 X10*3/uL (1.2-4.9); Lymphocytes Percent Auto 17.2 % (20-40); Mean Corpuscular HGB Conc 34.2 g/dl (31.0-35.0); Mean Corpuscular Hemoglobin 29.9 pg (27.0-33.0); Mean Corpuscular Volume 87.4 fL (80.0-98.0); Mean Platelet Volume 10.5 fL (9.4-12.3); Monocytes Absolute Auto 0.4 X10*3/uL (0.1-1.2); Monocytes Percent Auto 4.6 % (2-11); Neutrophils Percent Auto 76.2 % (45-73); Platelet Count 330 X10*3/uL (160-400); Red Blood Count 4.62 X10*6/uL (4.20-5.50); Red Cell Distribution Width 12.8 % (11.0-16.0); White Blood Count 7.8 X10*3/uL (4.8-10.8)
[2021-05-10 07:49] LABS: Alanine Aminotransferase 14 U/L (0-31); Albumin Level 4.5 g/dL (3.5-5.0); Alkaline Phosphatase 57 U/L (39-117); Anion Gap 13 (12-20); Aspartate Amino Transferase 15 U/L (5-31); Bilirubin Direct 0.4 mg/dL (0.0-0.5); Blood Urea Nitrogen 5 mg/dL (9-16); Calcium 10.1 mg/dL (8.4-10.2); Carbon Dioxide 22 mmol/L (22-29); Chloride 110 mmol/L (96-108); Creatinine Clr Calc Pharmacy 102.5; Estimated Glomerular Filt Rate > 60; Glucose Random 99 mg/dL (60-115); Lipase 25 U/L (8-78); Potassium 4.1 mmol/L (3.3-5.1); Sodium 141 mmol/L (135-145); Total Protein 7.5 g/dL (6.5-8.0)
[2021-05-10 07:53] VITALS: BP 120/72; PULSE 93; RESP 16; O2SAT 100
[2021-05-10 07:56] LABS: Troponin-I High Sensitivity < 3.5 ng/L (<3.5-17.0)
[2021-05-10 08:10] LABS: TSH reflex Free T4 0.74 uIU/mL (0.32-4.0)
== END 2021-05-10 08:45 | disposition home or self-care (01) ==
PROVIDERS: Emergency Provider Emergency Medicine
DX: R00.2 Palpitations (principal); F41.9 Anxiety disorder, unspecified; Z79.899 Other long term (current) drug therapy
CPT/HCPCS: 36415; 71045; 80048; 80076; 83690; 83735; 84443; 84484; 85025; 93005; 99283; 99284

== ENCOUNTER 2021-05-22 08:17 | Outpatient (REF) | payer BC, SELFPAY ==
[2021-05-22 11:50] LABS: Thyroid Stimulating Hormone 0.97 uIU/mL (0.32-4.0)
== END 2021-05-22 08:18 | disposition home or self-care (01) ==
LOC: HO.HMGCLDS 08:17
PROVIDERS: Visit Provider Nurse Practitioner Psychiatric/Mental Health
DX: F43.21 Adjustment disorder with depressed mood (principal); F32.0 Major depressive disorder, single episode, mild
CPT/HCPCS: 36415; 84439; 84443

== ENCOUNTER 2021-06-04 08:30 | Outpatient (RCR) | payer BC, SELFPAY ==
--- NOTE | 2021-05-13 14:24 | HO.PS.ADMBH ---
HPI Date of Service: 05/20/21 Chief Complaint: AISHA, MDD Sources of Information: patient interviewed, chart reviewed and crisis/core team assessment reviewed HPI Narrative: Lexie is a 30 year old female who has a hx of depression and anxiety. She was referred to [facility] by her PCP at [facility], as she had 3 recent crisis evals for depression, anxiety, and passive SI without plan or intent. Precipitating factors include that her brother in MVA before 2020 and pt subsequently had Covid.? I evaluated pt this morning and upon interview she reports buspar ?seems okay, I need a little more time to see if its fully working,? last dose adjustment was 05/02/21. Says she doesnt like to take medication and that ?I hope to not be on this [buspar] very long.? Pt states most of her anxiety came from getting covid and ?on top of my brother passing all I could think about was my father losing another child.? Pt has been in/ out of the ED in the past three weeks to get checked out for various somatic complaints i.e. if heart rate increases, however cardiac workup is unremarkable. Says when she had COVID ?I got pretty sick,? had a fever, extremely tired, ?couldnt really lift my head up.? Says since being put on buspar, she has felt ?pretty good the last couple days.? Sleep has also been better, still has epoxy specialist awakening. Denies having nightmares or flashbacks. In general, pt says ?I dont feel as stressed? and ?my chest hasnt been hurting,? she is ?not freaking out as much.? Says worrying about her health has ?been a big toll on my anxiety.? Still has some sx of depression including low appetite, low energy, and she is not showering as much as she used to. Last panic attack was last week, had been having one every morning x two weeks but this is improved.? Current medication: buspar 10 mg Q5:30am, 5 mg Q1:30pm, 5 mg Q9:30pm.? Past Psychiatric History: -Hx of depression after the of her first child. -Has OP therapy with Arel[facility] Suggs in [place], [place]. PCP prescribes psych medication. Has brief hx of OP therapy but says she never ?clicked? with anyone. -Hx of SIB (superficial cutting) Medical Evaluation Reviewed: Yes [facility] Medical History Acquired hypothyroidism Bilateral headaches Irregular menses Recurrent major depressive disorder in partial remission Right flank pain Surgical History History of tooth extraction Social History: -Per chart, Pt?s bio mother just left when she was very young. 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 Substance History: Denies Meds/Allergies Allergies Allergies Allergy/AdvReac Type Severity Reaction Status Date / Time codeine Allergy Unknown nausea and Verified 05/20/21 08:16 vomiting Mental Status Exam Mental Status Exam Narrative: A&O. Well groomed, good hygiene, overweight. Good eye contact, attentive. No Tics or Tremors. No abnormal involuntary movements. Calm, cooperative, engaged. Non-pressured speech, spontaneous with regular rate and rhythm, normal volume and prosody. No prolonged speech latency or dysarthria. Mood is ?better,? affect is euthymic. Denies SI/SIB/HI upon inquiry. Denies A/VH or delusional thought content. Thoughts are coherent, organized. No known cognitive or memory impairment. Insight/ Judgment fair and adequate. Assessment & Plan Assessment & Plan (1) Adjustment disorder with depressed mood: Status: Acute Code(s): F43.21 - Adjustment disorder with depressed mood Plan Lexie is a 30 year old female who has a hx of anxiety and depression and presents with sx of adjustment DO. She was referred to [facility] by her PCP at [facility], as she had 3 recent crisis evals for depression, anxiety, and passive SI without plan or intent. Precipitating factors include that her brother in MVA before Alok 2021 and pt subsequently had Covid, which has caused her to have panic attacks and anxiety about her health. Pt is fearful that her father will have to cope with the of another child. Pt was put on buspar by PCP and has reported improvement in sx in the past two weeks, sleep is improved and she has not been frequenting the ED for panic sx anymore. She reports family hx of addiction and is not interested in staying on medication halfway, discussed neuroprotective benefit of serotonergic meds for 6-12 months. Plan: Continue home medication. Pt does not want med changes. Monitor medication for benefit Discharge upon stabilization Obtain info from collateral contacts as needed Follow up per program protocol Patient educated on: diagnosis, medication risk/benefits and therapeutic strategies Certification I certify that partial hospital treatment is medically necessary due to the symptoms and problems resulting from the patient's mental illness and the failure to treat the patient at the partial hospital level of care would likely result in the patient requiring inpatient psychiatric care which could not be prevented at a less intensive level of care.
[2021-05-13 15:57] VITALS: BMI 32.0
--- NOTE | 2021-05-13 16:11 | PC.NURSE ---
Case opened in treatment team.
--- NOTE | 2021-05-14 10:26 | PC.ADMIT ---
Patient is a 30 year old female who stated she went to crisis in [place] who referred her to PHP d/t increased depression and anxiety with panic attacks.. Patient stated she has extreme anxiety overly concerned about her health. Stated she got Covid a month ago and was afraid she was going to . Reports increased episodes of depression as she lost her brother in a car accident last February. She stated her brother was going to go to her house for Alok brittany however did not show up-which was not unusual however patient stated she found out afterwards that her brother was in a car accident on the and his body was found on the . Patient reports her brother had issues with drugs. Patient also reports she has been struggling with panic attacks daily. Reports having passive SI having thoughts telling herself, I can't do this anymore , denied plan or intent. Patient is alert and oriented x4. Calm and cooperative. Presents with depressed mood and affect. Medications reconciled with patient and patient's pharmacy. She has not picked up prescription for Clonazepam as of yet. Reports taking medications as prescribed.
--- NOTE | 2021-05-21 11:11 | HO.PHPPROGNO ---
Subjective Subjective Date of Service: 05/21/21 Reason For Visit: AISHA, MDD Guardianship: No Medical Problems Affecting Mental Status: Yes (hypothyroid) Interim History: Lexie states i'm kind of off today . Tearful. Asked to stay home from work to be with her today. No SI, no safety concerns. Interested in starting antidepressant. Medication Compliance: Yes Side effects from medications: No Attending Groups: Yes Review of Systems Acute medical concerns: No Medical Review of Systems: unchanged Review of Systems Review of Systems Yes all other systems are reviewed and are negative Constitutional: Reports no additional constitutional complaints Mental Status Exam Mental Status Exam Narrative: Well developed, well nourished female, in NAD. Anxious, depressed mood and affect. Tearful at times during encounter. No SI, HI, AH, VH. Patient Appearance: Well Grooomed and Appropriate Patient Orientation: Person, Place, Time and Situation Level of Consciousness: Awake, Appropriate and Alert Patient Behavior: Appropriate, Cooperative and Good Eye Contact Mood Description: Depressed and Anxious Affect Description: Depressed and Anxious Patient Cognition Impaired: No Ability to Follow Directions: Excellent Speech Pattern: Clear, Appropriate and Coherent Memory Description: Intact Hallucinations: None Delusions: Not Present Thought Process: Intact, Goal Oriented and Linear Thought Content: positive for Intact, positive for Goal Oriented and positive for Linear Depressive Symptoms: Increased Anxiety, Changes in Appetite, Loss of Int. in Activity, Feelings of Worthlessness, Unhappiness and Low Self Esteem Judgement: Fair Diagnostics Vital Signs (24Hr): BMI result Body Mass Index 32.0 Assessment & Plan Assessment & Plan (1) Low TSH level: Status: Acute Code(s): R79.89 - Other specified abnormal findings of blood chemistry Assessment and Plan: TSH level ordered for tomorrow am. Patient reports feeling palpitations, unsure if it is due to thyroid or anxiety. She has spoken to her primary care provider on phone yesterday. Education provided regarding thyroid disorder and its relation to depression / anxiety, as well as levothyroxine dosing and side effects. (2) Adjustment disorder with depressed mood: Status: Acute Code(s): F43.21 - Adjustment disorder with depressed mood Assessment and Plan: Patient believes that she may actually have major depression, which is causing her depression and anxiety. She has taken sertraline in the past with positive affect. She has recently lost weight, which she is attributing to depressive symptoms. She is willing to trial sertraline again. She denies any SI at this time, no safety concern. Plan 1. TSH, free T4 ordered for tomorrow am. 2. Start sertraline 50 mg daily, script for 7 days sent to pharmacy. Patient educated on: diagnosis, medication risk/benefits, therapeutic strategies and medical condition Informed Consent: understands Reason for contiued partial hosp. stay Substantial Risk for: harm to self, inability to function and med/psych decompensation Certification I certify that partial hospital treatment is medically necessary due to the symptoms and problems resulting from the patient's mental illness and the failure to treat the patient at the partial hospital level of care would likely result in the patient requiring inpatient psychiatric care which could not be prevented at a less intensive level of care. I spent ___30___ minutes with the patient and/or on the patient floor today, greater than?50% of which was spent counseling/coordinating care. Discharge Plan Discharge Attending provider: Orion Maria Medications: New sertraline 50 mg tablet 50 mg PO DAILY 7 Days Qty: 7 0RF No Action medroxyprogesterone [Depo-Provera] 150 mg/mL suspension 150 mg IM [id number] Qty: 1 3RF levothyroxine 112 mcg tablet 112 mcg PO DAILY 90 Days Qty: 90 0RF clonazepam 0.5 mg tablet 0.25 mg PO BEDTIME Qty: 5 0RF Label Comments: Patient has not picked up from the pharmacy at present. Rx Instructions: administer 30 minutes before bedtime. # 5 tabs buspirone 5 mg tablet See Rx Instructions PO .COMPLEX 30 Days Qty: 120 1RF Rx Instructions: 2 tabs in the am, 1 tab in the afternoon, and 1 tab at night. PO; Telehealth Telehealth Location of provider rendering services: practice address Location of patient: address on file Patient Identification confirmed using: Name, : Yes Telehealth method: video Patient verbally consented to treatment: Yes Patient verbally consented to billing insurance company: Yes Patient informed of any privacy concerns related to visit: Yes Time spent with patient (mins): 20
--- NOTE | 2021-05-23 10:57 | PC.NURSE ---
I called and spoke to pt after she arrived to community meeting very tearful and struggling to speak. She shared that she is having a difficult morning, that she started Sertraline yesterday and has been throwing up all morning. 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 We briefly discussed using group to process issues, breathing techniques, and importance of reminding self that feelings will pass in time. Pt agreed to return to group and will see the med provider today.
--- NOTE | 2021-05-23 14:31 | HO.PHPPROGNO ---
Subjective Subjective Date of Service: 05/23/21 Reason For Visit: AISHA, MDD Guardianship: No Medical Problems Affecting Mental Status: No Interim History: Reports she woke up this morning in a panic . States she is concerned with nausea, believes it could be from the sertraline, or possibly taking sertraline and BuSpar at the same time. Feels overwhelmed with anxiety / panic attacks. No SI, no safety concern. TSH, T4 lab results back, both WNL. Medication Compliance: Yes Side effects from medications: Yes (nausea) Attending Groups: Yes Review of Systems Acute medical concerns: No Medical Review of Systems: unchanged Review of Systems Review of Systems Yes all other systems are reviewed and are negative Constitutional: Reports no additional constitutional complaints Mental Status Exam Mental Status Exam Narrative: Well developed, well nourished female, in NAD. Anxious, depressed mood and affect. Tearful at times during encounter. No SI, HI, AH, VH. Patient Appearance: Well Grooomed and Appropriate Patient Orientation: Person, Place, Time and Situation Level of Consciousness: Awake, Appropriate and Alert Patient Behavior: Appropriate, Cooperative and Good Eye Contact Mood Description: Depressed and Anxious (reports waking up today in a panic . ) Affect Description: Depressed, Anxious and Nervous Patient Cognition Impaired: No Ability to Follow Directions: Excellent Speech Pattern: Clear, Appropriate and Coherent Memory Description: Intact Hallucinations: None Delusions: Not Present Thought Process: Intact Thought Content: positive for Intact and positive for Perseveration (focused on panic attacks, states they are debilitating.) Depressive Symptoms: Increased Anxiety, Changes in Appetite, Loss of Int. in Activity, Feelings of Worthlessness, Unhappiness, Increased Fatigue and Low Self Esteem Judgement: Fair Diagnostics Vital Signs (24Hr): BMI result Body Mass Index 32.0 Assessment & Plan Assessment & Plan (1) Anxiety: Status: Acute Code(s): F41.9 - Anxiety disorder, unspecified Assessment and Plan: Client reports woke up this morning in a panic. Also reports feel nausea from sertraline dose. Extremely anxious mood an affect, depressed. Discussed medications, recommended she take 1/2 sertraline tab x4 days, and then take the full dose of 50 thereafter. Encouraged patient to take the sertraline in the evening, with food. Reviewed BuSpar, Klonopin. Patient is afraid to take Klonopin p.r.n., she was encouraged to do so when she is experiencing a panic attack. No SI, no safety concern. Discussed recent lab work results. Patient states that she has only been taking her levothyroxine sporadically, 2-3 times weekly. She was instructed to call her medical provider to inform them of this, as they may want to adjust her dose accordingly. (2) Adjustment disorder with depressed mood: Status: Acute Code(s): F43.21 - Adjustment disorder with depressed mood Plan 1. Decrease sertraline dose down to 25 mg x 4 days, then resume sertraline 50 mg daily. 2. Continue with BuSpar as ordered for now. 3. Encouraged to utilize ordered p.r.n. Klonopin for panic symptoms. 4. Continue with current [facility] plan of care. 5. Follow-up as per protocol. Patient educated on: diagnosis, medication risk/benefits, therapeutic strategies and medical condition Informed Consent: understands Reason for contiued partial hosp. stay Substantial Risk for: inability to function, rapid decompensation and med/psych decompensation Certification I certify that partial hospital treatment is medically necessary due to the symptoms and problems resulting from the patient's mental illness and the failure to treat the patient at the partial hospital level of care would likely result in the patient requiring inpatient psychiatric care which could not be prevented at a less intensive level of care. I spent minutes with the patient and/or on the patient floor today, greater than?50% of which was spent counseling/coordinating care. Discharge Plan Discharge Attending provider: Orion Maria Medications: New sertraline 50 mg tablet 50 mg PO DAILY 7 Days Qty: 7 0RF No Action medroxyprogesterone [Depo-Provera] 150 mg/mL suspension 150 mg IM [id number] Qty: 1 3RF levothyroxine 112 mcg tablet 112 mcg PO DAILY 90 Days Qty: 90 0RF clonazepam 0.5 mg tablet 0.25 mg PO BEDTIME Qty: 5 0RF Label Comments: Patient has not picked up from the pharmacy at present. Rx Instructions: administer 30 minutes before bedtime. # 5 tabs buspirone 5 mg tablet See Rx Instructions PO .COMPLEX 30 Days Qty: 120 1RF Rx Instructions: 2 tabs in the am, 1 tab in the afternoon, and 1 tab at night. PO; Telehealth Telehealth Location of provider rendering services: practice address Patient Identification confirmed using: Name, : Yes Telehealth method: video Patient verbally consented to treatment: Yes Patient verbally consented to billing insurance company: Yes Patient informed of any privacy concerns related to visit: Yes Time spent with patient (mins): 20
--- NOTE | 2021-05-26 11:20 | HO.PHPPROGNO ---
Subjective Subjective Date of Service: 05/26/21 Reason For Visit: AISHA, MDD Medical Problems Affecting Mental Status: No Interim History: Lexie describes mood today as blah . No thoughts of harm to self or others, no SI, no safety concerns. Describes appetite as poor, sleep as up/down. Has continue with some stomach upset, had loose stools several days ago, now states she feels more constipated. Reports less anxiety today, no panic attack yesterday or today. Medication Compliance: Yes Side effects from medications: Yes (Concerned that sertraline and BuSpar are causing GI upset) Attending Groups: Yes Review of Systems Acute medical concerns: No Medical Review of Systems: unchanged Review of Systems Review of Systems Yes all other systems are reviewed and are negative Constitutional: Reports no additional constitutional complaints Mental Status Exam Mental Status Exam Narrative: Well developed, well nourished female, in NAD. No SI, HI, AH, VH. Patient Appearance: Well Grooomed and Appropriate Patient Orientation: Person, Place, Time and Situation Level of Consciousness: Awake, Appropriate and Alert Patient Behavior: Appropriate, Cooperative and Good Eye Contact Mood Description: Depressed and Anxious Affect Description: Depressed and Anxious Patient Cognition Impaired: No Ability to Follow Directions: Excellent Speech Pattern: Clear, Appropriate and Coherent Memory Description: Intact Hallucinations: None Delusions: Not Present Thought Process: Intact Thought Content: positive for Intact Depressive Symptoms: Increased Anxiety, Changes in Appetite, Loss of Int. in Activity, Feelings of Worthlessness, Unhappiness, Increased Fatigue and Low Self Esteem Judgement: Fair Diagnostics Vital Signs (24Hr): BMI result Body Mass Index 32.0 Assessment & Plan Assessment & Plan (1) Adjustment disorder with depressed mood: Status: Acute Code(s): F43.21 - Adjustment disorder with depressed mood Assessment and Plan: Continues with depressed, anxious mood/affect. Denies any SI, no thoughts of harm to self or others, no safety concern at this time. She has taken sertraline 25mg daily for past 3 days, with one more dose scheduled this evening. Plan to increase dose tomorrow to 50 mg daily. Continues with some GI upset, although loose stools have subsided 2 days ago. Expressed concern regarding BuSpar, as she believes it could be adding to her GI distress. She is also not sure at this time whether not the GI upset is related to her level of anxiety, and not medications. Medications discussed, education provided regarding each medication, side effects, intended purpose, risks/benefits, as well as alternatives. She was in agreement to several medication changes at this time. 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 She is agreeable to increasing sertraline to 50 mg daily start tomorrow. She is considering stopping BuSpar, it was recommended at this time that she DC it. Also discussed Vistaril 25 mg b.i.d., as it can help both with anxiety and with nausea. (2) Anxiety: Status: Acute Code(s): F41.9 - Anxiety disorder, unspecified Plan 1. Stop BuSpar. 2. Start hydroxyzine 25 mg b.i.d. p.r.n. for anxiety/nausea. 3. Will start increased dose of sertraline tomorrow at 50 mg. 4. Continue with current [facility] plan of care. 5. Follow-up as per protocol. Patient educated on: diagnosis, medication risk/benefits and therapeutic strategies Informed Consent: understands Reason for contiued partial hosp. stay Substantial Risk for: inability to function and med/psych decompensation Certification I certify that partial hospital treatment is medically necessary due to the symptoms and problems resulting from the patient's mental illness and the failure to treat the patient at the partial hospital level of care would likely result in the patient requiring inpatient psychiatric care which could not be prevented at a less intensive level of care. I spent minutes with the patient and/or on the patient floor today, greater than?50% of which was spent counseling/coordinating care. Discharge Plan Discharge Attending provider: Orion Maria Medications: New hydroxyzine HCl 25 mg tablet 25 mg PO BID PRN (Reason: anxiety) 14 Days Qty: 14 0RF No Action medroxyprogesterone [Depo-Provera] 150 mg/mL suspension 150 mg IM [id number] Qty: 1 3RF levothyroxine 100 mcg tablet 100 mcg PO DAILY 90 Days Qty: 90 0RF sertraline 50 mg tablet 50 mg PO DAILY 30 Days Qty: 30 2RF clonazepam 0.5 mg tablet 0.25 mg PO BEDTIME Qty: 5 0RF Label Comments: Patient has not picked up from the pharmacy at present. Rx Instructions: administer 30 minutes before bedtime. # 5 tabs buspirone 5 mg tablet See Rx Instructions PO .COMPLEX 30 Days Qty: 120 1RF Rx Instructions: 2 tabs in the am, 1 tab in the afternoon, and 1 tab at night. PO; Telehealth Telehealth Location of provider rendering services: practice address Location of patient: address on file Patient Identification confirmed using: Name, : Yes Telehealth method: video Patient verbally consented to treatment: Yes Patient verbally consented to billing insurance company: Yes Patient informed of any privacy concerns related to visit: Yes Time spent with patient (mins): 20
--- NOTE | 2021-06-02 15:13 | P.PNPSP_ITS ---
Subjective Subjective Date of Service: 06/02/21 Reason For Visit: AISHA, MDD Guardianship: No Medical Problems Affecting Mental Status: No Interim History: Lexie describes mood as pretty good . Reports that she has felt up and down over the weekend, but overall well. No SI. Levothyroxine has been lowered to 100 mcg daily by her PCP. Her PCP instructed her to use 1 dose of BuSpar as a p.r.n. daily when experiencing symptoms of increased anxiety/panic. She states that she has done this with positive affect. Did experience anxiety at times, but was able to use self talk and coping skills she has learned in program with positive affect. Tried hydroxyzine once, made her tired. Will try half a tab next time. Medication Compliance: Yes Side effects from medications: Yes ( felt tired with hydroxyzine) Attending Groups: Yes Review of Systems Acute medical concerns: No Medical Review of Systems: unchanged Review of Systems Review of Systems Yes all other systems are reviewed and are negative Constitutional: Reports no additional constitutional complaints Mental Status Exam Mental Status Exam Narrative: Well developed, well nourished female, in NAD. Less anxious, less depressed. Patient Appearance: Well Grooomed and Appropriate Patient Orientation: Person, Place, Time and Situation Level of Consciousness: Awake, Appropriate and Alert Patient Behavior: Appropriate, Cooperative and Good Eye Contact Mood Description: Calm, Appropriate, Depressed (Reports much improved.) and Anxious (Reports much improved.) Affect Description: Calm, Appropriate, Cheerful (smiling during encounter. ) and Anxious (Symptoms have lessened noticeably, only slightly anxious at times. ) Patient Cognition Impaired: No Ability to Follow Directions: Excellent Speech Pattern: Clear, Appropriate and Coherent Memory Description: Intact Hallucinations: None Delusions: Not Present Thought Process: Intact Thought Content: positive for Intact Depressive Symptoms: Increased Anxiety, Increased Fatigue and Low Self Esteem Judgement: Good Diagnostics Vital Signs (24Hr): BMI result Body Mass Index 32.0 Assessment & Plan Assessment & Plan (1) Anxiety: Status: Acute Code(s): F41.9 - Anxiety disorder, unspecified Assessment and Plan: Overall Lexie reports feeling overall improved mood and affect. Patient smiled during encounter, for 1st time since meeting her. Has been taking medication as prescribed. Reports that she is beginning to notice it improved mood with the sertraline. States that she was able to go out of the house this weekend with her family, took her children to [place]. Expressed hope for the future, wants to go out on a date night with her next week for her birthday. Tried hydroxyzine, found it sedating, will take half a tab next time she is experiencing increased anxiety/panic. Reports that her primary care physician has lowered her levothyroxine dose, which she is also finding helpful. Discussed her current medications in detail, providing education regarding risks, benefits, alternatives, side effects. She states that she feels stable on this current routine. Does not need any refills at this time. No thoughts of harm to self or others, no safety concerns. (2) Adjustment disorder with depressed mood: Status: Acute Code(s): F43.21 - Adjustment disorder with depressed mood (3) Post-COVID chronic anxiety: Status: Acute Code(s): F41.9 - Anxiety disorder, unspecified; U09.9 - Post COVID-19 condition, unspecified Plan 1. Continue with current [facility] plan of care. 2. Discharge this coming Wednesday is planned, patient appears to be improving, should be ready for discharge this week. 3. Patient will follow-up with her outpatient providers going forward. Patient educated on: diagnosis, medication risk/benefits, therapeutic strategies and medical condition Informed Consent: understands Reason for contiued partial hosp. stay Substantial Risk for: stable for discharge Certification I certify that partial hospital treatment is medically necessary due to the symptoms and problems resulting from the patient's mental illness and the failure to treat the patient at the partial hospital level of care would likely result in the patient requiring inpatient psychiatric care which could not be prevented at a less intensive level of care. I spent minutes with the patient and/or on the patient floor today, greater than?50% of which was spent counseling/coordinating care. Discharge Plan Discharge Attending provider: Orion Maria Medications: New hydroxyzine HCl 25 mg tablet 25 mg PO BID PRN (Reason: anxiety) 14 Days Qty: 14 0RF Discontinued buspirone 5 mg tablet See Rx Instructions PO .COMPLEX 30 Days Qty: 120 1RF Rx Instructions: 2 tabs in the am, 1 tab in the afternoon, and 1 tab at night. PO; No Action medroxyprogesterone [Depo-Provera] 150 mg/mL suspension 150 mg IM [id number] Qty: 1 3RF levothyroxine 100 mcg tablet 100 mcg PO DAILY 90 Days Qty: 90 0RF sertraline 50 mg tablet 50 mg PO DAILY 30 Days Qty: 30 2RF buspirone 15 mg tablet 15 mg PO DAILY 0RF Telehealth Telehealth Location of provider rendering services: practice address Location of patient: address on file Patient Identification confirmed using: Name, : Yes Telehealth method: video Patient verbally consented to treatment: Yes Patient verbally consented to billing insurance company: Yes Patient informed of any privacy concerns related to visit: Yes Time spent with patient (mins): 20
--- NOTE | 2021-06-04 13:53 | PC.NURSE ---
Patient scheduled to discharge from [facility] today. Reports feeling ok about discharge. Denied SI. Patient has the crisis number if she ever needs it. Reviewed patient medications with patient.Reports taking only 10 mg of Buspar instead of 15 mg as 15 mg caused feelings of dizziness.
--- NOTE | 2021-06-04 14:48 | HO.PHPPROGNO ---
Subjective Subjective Date of Service: 06/04/21 Reason For Visit: AISHA, MDD Guardianship: No Medical Problems Affecting Mental Status: No Interim History: Lexie completes PHP today. She reports overall her mood is much improved, much less anxiety. She does report though that she will miss the structure of the program, and is working on building a schedule for herself so that she does not slip back into feeling helpless/hopeless. Denies any thought of harm to self or others. No safety concerns. Was able to express hope for the future. Medication Compliance: Yes Side effects from medications: No Attending Groups: Yes Review of Systems Acute medical concerns: No Medical Review of Systems: unchanged Review of Systems Review of Systems Yes all other systems are reviewed and are negative Constitutional: Reports no additional constitutional complaints Mental Status Exam Mental Status Exam Narrative: Well developed, well nourished female, in NAD. Patient Appearance: Well Grooomed and Appropriate Patient Orientation: Person, Place, Time and Situation Level of Consciousness: Awake, Appropriate and Alert Patient Behavior: Appropriate, Cooperative and Good Eye Contact Mood Description: Calm and Appropriate Affect Description: Calm and Appropriate Patient Cognition Impaired: No Ability to Follow Directions: Excellent Speech Pattern: Clear, Appropriate and Coherent Memory Description: Intact Hallucinations: None Delusions: Not Present Thought Process: Intact Thought Content: positive for Intact Judgement: Good Diagnostics Vital Signs (24Hr): BMI result Body Mass Index 32.0 Assessment & Plan Assessment & Plan (1) Adjustment disorder with depressed mood: Status: Acute Code(s): F43.21 - Adjustment disorder with depressed mood Assessment and Plan: Patient reports feeling much improved, denies any symptoms of anxiety and depression at this time. No thoughts of harm to self or others, no safety concern. Reports current medication regimen is working well, does not need any refills at this time. Reports that she is going to miss the structure of the PHP, and is working to plan our her days going forward. Expresses hope for the future. (2) Post-COVID chronic anxiety: Status: Acute Code(s): F41.9 - Anxiety disorder, unspecified; U09.9 - Post COVID-19 condition, unspecified Patient educated on: diagnosis, medication risk/benefits and therapeutic strategies Informed Consent: understands Reason for contiued partial hosp. stay Substantial Risk for: stable for discharge Certification I certify that partial hospital treatment is medically necessary due to the symptoms and problems resulting from the patient's mental illness and the failure to treat the patient at the partial hospital level of care would likely result in the patient requiring inpatient psychiatric care which could not be prevented at a less intensive level of care. I spent minutes with the patient and/or on the patient floor today, greater than?50% of which was spent counseling/coordinating care. Discharge Plan Discharge Attending provider: Orion Maria Medications: New hydroxyzine HCl 25 mg tablet 25 mg PO BID PRN (Reason: anxiety) 14 Days Qty: 14 0RF Discontinued buspirone 5 mg tablet See Rx Instructions PO .COMPLEX 30 Days Qty: 120 1RF Rx Instructions: 2 tabs in the am, 1 tab in the afternoon, and 1 tab at night. PO; No Action medroxyprogesterone [Depo-Provera] 150 mg/mL suspension 150 mg IM [id number] Qty: 1 3RF levothyroxine 100 mcg tablet 100 mcg PO DAILY 90 Days Qty: 90 0RF sertraline 50 mg tablet 50 mg PO DAILY 30 Days Qty: 30 2RF buspirone 15 mg tablet 15 mg PO DAILY 0RF Stand Alone Forms: Patient Portal Discharge page Telehealth Telehealth Location of provider rendering services: practice address Location of patient: address on file Patient Identification confirmed using: Name, : Yes Telehealth method: video Patient verbally consented to treatment: Yes Patient verbally consented to billing insurance company: Yes Patient informed of any privacy concerns related to visit: Yes Time spent with patient (mins): 15
--- NOTE | 2021-06-04 15:52 | PC.NURSE ---
Called and LM for pt's therapist, Arelis Suggs in [place], informing her of pt's discharge from [facility] today and of her clinical presentation.
== END 2021-06-04 23:59 | disposition home or self-care (01) ==
LOC: HO.PHPA 08:30
PROVIDERS: Visit Provider Psychiatry & Neurology Psychiatry
DX: F43.21 Adjustment disorder with depressed mood (principal); F41.9 Anxiety disorder, unspecified; Z79.899 Other long term (current) drug therapy
CPT/HCPCS: 90791; 90853

== ENCOUNTER 2021-06-27 09:24 | Outpatient (REF) | payer BC, SELFPAY ==
[2021-06-27 11:52] LABS: Appearance Urine CLEAR; Color Urine YELLOW; Glucose Urine UA NEG (NEG); Leukocyte Esterase Urine NEG (NEG); Nitrite Urine NEG (NEG); PH 5.5 (5.0-8.0); Specific Gravity - Urine 1.025 (1.005-1.025); UACC Culture Trigger NO; Urine Blood TRACE (NEG); Urine Ketones 5 MG/DL (NEG); Urine Protein NEG (NEG-TRACE)
[2021-06-27 12:45] LABS: TSH reflex Free T4 0.84 uIU/mL (0.32-4.0)
[2021-06-27 13:09] LABS: RBC Urine 0-2 /HPF (0); WBC Urine 0 /HPF (0-4)
[2021-06-27 13:10] LABS: Bacteria Urine 2+ /LPF; Calcium Oxalate Crystals Urine 2+ /LPF; Mucus Urine 2+ /LPF; Squamous Epithelial Cell Urine 1+ /LPF
== END 2021-06-27 09:25 | disposition home or self-care (01) ==
LOC: HO.HMGCLDS 09:24
PROVIDERS: PCP Nurse Practitioner Family; Visit Provider Nurse Practitioner Family
DX: F41.9 Anxiety disorder, unspecified (principal)
CPT/HCPCS: 36415; 81001; 81003; 84443

== ENCOUNTER 2021-07-02 08:28 | Outpatient (REF) | payer BC, SELFPAY ==
[2021-07-08 11:07] LABS: Metanephrine, Free <25 pg/mL (<=57); Normetanephrines, Free 64 pg/mL (<=148); Total Metanephrine, Free 64 pg/mL (<=205)
== END 2021-07-02 08:29 | disposition home or self-care (01) ==
LOC: HO.LAB 08:28
PROVIDERS: PCP Nurse Practitioner Family; Referring Provider Nurse Practitioner Family; Visit Provider Internal Medicine Cardiovascular Disease
DX: R00.2 Palpitations (principal); R06.02 Shortness of breath; R00.0 Tachycardia, unspecified; U09.9 Post COVID-19 condition, unspecified; R79.89 Other specified abnormal findings of blood chemistry; E03.9 Hypothyroidism, unspecified; Z87.891 Personal history of nicotine dependence; Z88.6 Allergy status to analgesic agent; Z79.899 Other long term (current) drug therapy
CPT/HCPCS: 36415; 83835

== ENCOUNTER → 2021-07-22 10:44 | Outpatient (BNVA) | payer BC, SELFPAY | PROVIDERS: PCP Nurse Practitioner Family; Visit Provider Advanced Practice Midwife | DX: Z30.42 Encounter for surveillance of injectable contraceptive (principal) | CPT/HCPCS: 96372 ==

== ENCOUNTER → 2021-08-11 08:58 | Outpatient (REF) | payer BC, SELFPAY ==
--- NOTE | 2021-08-11 09:06 | HM_ITS ---
Conclusion: 1. Patient was monitored for total period of 5 days and 22 hours 2. Baseline was normal sinus rhythm with average heart rate 60 beats per minute 3. No significant pauses or bradycardia noted 4. Rare PACs noted 5. 3 reported patient events correlated with sinus rhythm MTDD
--- NOTE | 2021-08-11 09:06 | CA_ITS ---
Transthoracic Echocardiogram Patient (Last, First, Middle): Lexie Jenkins L Gender: Female Date of : 1990 Age: 31 Procedure Date: 08/11/2021 Procedure Type: Transthoracic Echocardiogram Location: OP Height: 157.48 cm Weight: 81.65 kg BSA: 1.83 m2 Heart Rate: bpm BP: 117 / 82 mmHg Automatic Nailing Machine Operator: LISA Referring MD: Ehsan Sethi MD Symptoms: R00.2 - Palpitations Study Quality: Good Conclusions: - The left ventricular systolic function is normal. The calculated ejection fraction is 59% by biplane method. - LV peak GLS -19.6%. - No obvious valvular pathology seen on this study. Findings Left Ventricle Normal left ventricular cavity size. There is normal left ventricular wall thickness. The left ventricular systolic function is normal. The calculated ejection fraction is 59% by biplane method. There is no evidence of regional wall motion abnormalities. Diastolic function is normal for age. LV peak GLS -19.6%. LVEF by 3D 57%. Right Ventricle Normal right ventricular cavity size and systolic function. Atria Both atria are normal in size. Aortic Valve There is a normal trileaflet aortic valve. There is no aortic valve stenosis. There is no aortic valve regurgitation. Mitral Valve The mitral valve appears normal. There is trace mitral valve regurgitation. There is no mitral valve stenosis. Pulmonic Valve The pulmonic valve is likely normal. Tricuspid Valve Normal tricuspid valve structure. There is no tricuspid valve regurgitation. The pulmonary artery systolic pressure is normal. Great Vessels The asc aorta is normal in size. Venous The inferior vena cava is normal in size and collapses greater than 50% with inspiration. Pericardium/Pleural There is no evidence of pericardial effusion. Prior Study Comparison No prior study available for comparison. Recommendations, Care & Conclusions No obvious valvular pathology seen on this study. Measurements 2D Linear Measurements IVSd: 0.75 0.6-0.9/0.6-1.0 cm LVIDd: 4.76 3.9-5.3/4.2-5.9 cm LVIDd Index: 2.60 2.4-3.2/2.2-3.1 cm/m2 LVIDs: 3.26 2.0-3.6 cm LVPWd: 0.69 0.7-1.1 cm LA Diam: 3.90 2.7-3.8/3.0-4.0 cm LAIDs Index: 2.13 1.5-2.3 cm/m2 LV Mass: 136.42 67-162/88-224 g LV Mass Index: 74.54 43-95/49-115 g/m2 LVOT Diam: 2.00 3.0+(-)1.3 cm 2D Systolic Function EF 4C: 64.10 >55% EF 2C: 55.80 >55% EF BiP: 58.70 >55% Mitral Valve MV Pk E: 0.81 MV PK A: 0.59 MV Decel Time: 337.00 E/A: 1.40 E'Lateral: 11.30 E'Medial: 9.57 E/E' Med: 8.40 E/E' Lat: 7.20 PHT: 99.00 MVA PHT: 2.22 Decel [place]: 2.40 Aortic Valve AoV Pk Americo: 1.47 AoV Mn Americo: 1.00 AoV VTI: 0.31 AoV Pk Grad: 9.00 Aov Mn Grad: 4.00 SIMONE Cont.VTI: 2.20 LVOT LVOT Pk Americo: 0.98 LVOT Mn Americo: 0.69 LVOT VTI: 0.22 LVOT Pk Grad: 4.00 LVOT Mn Grad: 2.00 LVOT Diam: 2.00 LVOT Area: 3.14 Diastolic Function MV Pk E: 0.81 MV Pk A: 0.59 E/A: 1.40 E'Medial: 9.57 E/E' Med: 8.40 E' Laterial: 11.30 E/E' Lat: 7.20 Right Ventricle TAPSE (mm): 19.10 TVS' Americo: 11.10 Tricuspid Valve TR Pk Americo: 1.74 TR Pk Grad: 12.00 RA Press: 3.00 RVSP: 15.00 Great Vessels Aorta Sinus of Valsalva: 2.82 2.0-3.[address] [place]: 2.22 1.7-3.4 cm Ao Asc: 2.50 2.1-3.4 cm Ao Arch: 2.50 Updated in Other Vendor System with Status of Final Krish Lees MD electronically signed on 08/12/2021 12:25:27 PM with status of Final
== END ==
LOC: HO.CARD 08:58
PROVIDERS: PCP Nurse Practitioner Family; Visit Provider Internal Medicine Cardiovascular Disease
DX: R00.2 Palpitations (principal)
CPT/HCPCS: 93242; 93306; 93356

== ENCOUNTER 2021-08-14 08:21 | Outpatient (REF) | payer BC, SELFPAY ==
[2021-08-14 11:12] LABS: MANUAL DIFF FLAG NO
[2021-08-14 11:21] LABS: Basophils Absolute Auto 0.1 X10*3/uL (0.0-0.2); Basophils Percent Auto 1.5 % (0-2); Eosinophils Absolute Auto 0.1 X10*3/uL (0.0-0.4); Eosinophils Percent Auto 1.9 % (0-4); Hematocrit 42.2 % (37.0-47.0); Hemoglobin 13.9 g/dl (12.0-16.0); Imm Gran Abs Auto 0.02 X10*3/uL (0.00-0.03); Imm Gran Pct Auto 0.4 % (0.0-0.4); Lymphocytes Absolute Auto 1.8 X10*3/uL (1.2-4.9); Lymphocytes Percent Auto 33.2 % (20-40); Mean Corpuscular HGB Conc 32.9 g/dl (31.0-35.0); Mean Corpuscular Hemoglobin 29.7 pg (27.0-33.0); Mean Corpuscular Volume 90.2 fL (80.0-98.0); Monocytes Absolute Auto 0.3 X10*3/uL (0.1-1.2); Monocytes Percent Auto 5.8 % (2-11); Neutrophils Percent Auto 57.2 % (45-73); Platelet Count 394 X10*3/uL (160-400); Red Blood Count 4.68 X10*6/uL (4.20-5.50); White Blood Count 5.3 X10*3/uL (4.8-10.8)
[2021-08-14 11:23] LABS: Appearance Urine CLEAR; Color Urine YELLOW; Glucose Urine UA NEG (NEG); Leukocyte Esterase Urine NEG (NEG); Nitrite Urine NEG (NEG); PH 7.5 (5.0-8.0); Urine Blood NEG (NEG); Urine Ketones NEG (NEG); Urine Protein NEG (NEG-TRACE)
[2021-08-14 11:28] LABS: Partial Thromboplastin Time 31.1 SEC (24.1-38.0)
[2021-08-14 11:39] LABS: Alanine Aminotransferase 19 U/L (0-31); Albumin Level 4.3 g/dL (3.5-5.0); Alkaline Phosphatase 68 U/L (39-117); Anion Gap 11 (12-20); Aspartate Amino Transferase 18 U/L (5-31); Bilirubin Total 0.5 mg/dL (0.0-1.0); Blood Urea Nitrogen 9 mg/dL (9-16); C Reactive Protein 0.22 mg/dL (< or = 0.50); Calcium 9.5 mg/dL (8.4-10.2); Carbon Dioxide 23 mmol/L (22-29); Chloride 112 mmol/L (96-108); Cholesterol 193 mg/dL; Estimated Glomerular Filt Rate > 60; Glucose Fasting 97 mg/dL (60-99); HDL Cholesterol 47 mg/dL; LDL Cholesterol Calculated 131 mg/dl; Potassium 4.7 mmol/L (3.3-5.1); Sodium 141 mmol/L (135-145); Total Protein 7.6 g/dL (6.5-8.0); Triglycerides 76 mg/dL
[2021-08-14 12:00] LABS: TSH reflex Free T4 3.98 uIU/mL (0.32-4.0)
[2021-08-14 12:21] LABS: Erythrocyte Sedimentation Rate 8 MM/HR (0-20)
[2021-08-15 08:47] LABS: Lyme Abs Screen <0.90 index
== END 2021-08-14 08:22 | disposition home or self-care (01) ==
LOC: HO.HMGCLDS 08:21
PROVIDERS: PCP Nurse Practitioner Family; Visit Provider Nurse Practitioner Family
DX: Z00.00 Encounter for general adult medical examination without abnormal findings (principal); F41.9 Anxiety disorder, unspecified; E03.9 Hypothyroidism, unspecified; R23.8 Other skin changes
CPT/HCPCS: 36415; 80053; 80061; 81003; 84443; 85025; 85610; 85652; 85730; 86140; 86617; 86618

== ENCOUNTER → 2021-08-25 08:56 | Outpatient (BNVA) | payer BC, SELFPAY | PROVIDERS: PCP Nurse Practitioner Family; Referring Provider Nurse Practitioner Family; Visit Provider Internal Medicine Cardiovascular Disease | DX: R00.2 Palpitations (principal) ==

== ENCOUNTER 2021-12-24 11:07 | Outpatient (REF) | payer BC, SELFPAY ==
[2021-12-24 18:39] LABS: CT PCR NOT DETECTED (Not Detect.); NG PCR NOT DETECTED (Not Detect.)
== END 2021-12-24 11:08 | disposition home or self-care (01) ==
LOC: HO.LNP 11:07
PROVIDERS: Visit Provider Advanced Practice Midwife
DX: Z11.3 Encounter for screening for infections with a predominantly sexual mode of transmission (principal); Z20.2 Contact with and (suspected) exposure to infections with a predominantly sexual mode of transmission
CPT/HCPCS: 87491; 87591

== ENCOUNTER 2022-01-14 15:25 | Outpatient (REF) | payer BC, SELFPAY ==
--- NOTE | ~2022-01-14 | CT_ITS ---
EXAMINATION: CT CHEST WITHOUT CONTRAST CLINICAL INFORMATION: Abnormal lung findings. CT/CT chest wo IV con FINDINGS/IMPRESSION: The patient was recalled back for repeat CT chest due to suboptimal images. Exam was then performed on 01/26/2022.
== END 2022-01-14 15:26 | disposition home or self-care (01) ==
LOC: HO.CT 15:25
PROVIDERS: PCP Nurse Practitioner Family; Visit Provider Nurse Practitioner Family
DX: Z13.89 Encounter for screening for other disorder (principal)
CPT/HCPCS: 71250; 96372

== ENCOUNTER 2022-01-26 08:58 | Outpatient (REF) | payer BC, SELFPAY ==
--- NOTE | ~2022-01-26 | CT_ITS ---
EXAMINATION: CT CHEST WITHOUT CONTRAST CLINICAL INFORMATION: Post Covid condition COMPARISON: Previous chest x-ray most recent April 2021 TECHNIQUE: Multidetector volumetric CT imaging of the chest was done. Axial MIP volume rendering provided. Sagittal and coronal reformatted images were obtained. This CT examination was performed using dose optimization techniques as appropriate, variously including the following: *Automated exposure control *Adjustment of mA and/or kV according to patient size (this includes techniques or standardized protocols for targeted exams where dose is matched to indication/reason for exam; i.e. extremities or head) *Use of iterative reconstruction technique DLP: 162 mGy-cm FINDINGS: DESKTOP PUBLISHING ASSOCIATE: Unremarkable LUNGS: There are 2 adjacent 3 mm right upper lobe nodules axial image 149 and 156 series 7. There is a 3 mm right upper lobe nodule axial image 224 series 7. There is a 4 mm right upper lobe nodule axial image 270 series 7. There is a 4 mm right middle lobe nodule axial image 306 series 7. The lungs are otherwise clear. MEDIASTINUM: The mediastinum is normal. CORONARY ARTERY CALCIFICATION: None visualized on this study. PLEURA: There is no pleural effusion. No pleural mass or thickening. AXILLA: No lymphadenopathy. UPPER ABDOMEN: Unremarkable. OSSEOUS STRUCTURES: Unremarkable. CT/CT chest wo IV con IMPRESSION: Small right pulmonary nodules largest measuring 4 mm. No evidence of pneumonia or interstitial or fibrotic lung disease. According to the UPDATED 2017 Fleischner Society recommendations, the advised follow-up imaging for less than 6 mm solid nodule: Low risk, no chest CT follow-up and high risk, optional chest CT follow-up in one year. Fleischner guidelines were followed.
[2022-01-26 09:25] LABS: MANUAL DIFF FLAG NO
[2022-01-26 09:46] LABS: Basophils Percent Auto 0.5 % (0-2); Eosinophils Absolute Auto 0.1 X10*3/uL (0.0-0.4); Eosinophils Percent Auto 1.8 % (0-4); Hematocrit 42.2 % (37.0-47.0); Hemoglobin 13.9 g/dl (12.0-16.0); Imm Gran Abs Auto 0.02 X10*3/uL (0.00-0.03); Imm Gran Pct Auto 0.3 % (0.0-0.4); Lymphocytes Percent Auto 32.8 % (20-40); Mean Corpuscular HGB Conc 32.9 g/dl (31.0-35.0); Mean Corpuscular Hemoglobin 29.3 pg (27.0-33.0); Mean Corpuscular Volume 88.8 fL (80.0-98.0); Mean Platelet Volume 10.1 fL (9.4-12.3); Monocytes Absolute Auto 0.4 X10*3/uL (0.1-1.2); Monocytes Percent Auto 6.3 % (2-11); Neutrophils Absolute Auto 3.6 x10*3/uL (2.0-8.3); Neutrophils Percent Auto 58.3 % (45-73); Platelet Count 419 X10*3/uL (160-400); Red Blood Count 4.75 X10*6/uL (4.20-5.50); Red Cell Distribution Width 12.9 % (11.0-16.0); White Blood Count 6.2 X10*3/uL (4.8-10.8)
[2022-01-26 10:03] LABS: Alanine Aminotransferase 16 U/L (0-31); Albumin Level 4.5 g/dL (3.5-5.0); Alkaline Phosphatase 73 U/L (39-117); Anion Gap 16 (12-20); Aspartate Amino Transferase 18 U/L (5-31); Bilirubin Total 0.6 mg/dL (0.0-1.0); Blood Urea Nitrogen 10 mg/dL (9-16); Calcium 9.6 mg/dL (8.4-10.2); Carbon Dioxide 21 mmol/L (22-29); Chloride 108 mmol/L (96-108); Estimated Glomerular Filt Rate > 60; Glucose Fasting 87 mg/dL (60-99); Potassium 4.6 mmol/L (3.3-5.1); Sodium 140 mmol/L (135-145); Total Protein 7.8 g/dL (6.5-8.0)
[2022-01-26 10:25] LABS: TSH reflex Free T4 8.07 uIU/mL (0.32-4.0)
[2022-01-26 11:13] LABS: Free T4 (Free Thyroxine) 0.89 ng/dL (0.71-1.85)
[2022-01-26 11:15] LABS: Appearance Urine Clear; Color Urine Yellow; Glucose Urine UA Negative (Negative); Leukocyte Esterase Urine Trace (Negative); Nitrite Urine Negative (Negative); Specific Gravity - Urine 1.015 (1.005-1.025); UMIC TRIGGER UACC YES; Urine Blood Negative (Negative); Urine Ketones Negative (Negative); Urine Protein Negative (Neg-Trace)
[2022-01-26 11:19] LABS: Bacteria Urine None Seen (None Seen); Hyaline Casts Urine 0-2 /LPF (0-2); RBC Urine 0-2 /HPF (0-2); Squamous Epithelial Cell Urine 0-2 /HPF (0-2); WBC Urine 0-5 /HPF (0-5)
== END 2022-01-26 08:59 | disposition home or self-care (01) ==
LOC: HO.CT 08:58
PROVIDERS: PCP Nurse Practitioner Family; Visit Provider Nurse Practitioner Family
DX: F33.41 Major depressive disorder, recurrent, in partial remission (principal); F41.9 Anxiety disorder, unspecified; R05.3 Chronic cough; U09.9 Post COVID-19 condition, unspecified
CPT/HCPCS: 36415; 71250; 80053; 81001; 84439; 84443; 85025

== ENCOUNTER → 2022-04-01 08:41 | Outpatient (BNVA) | payer BC, SELFPAY | PROVIDERS: PCP Nurse Practitioner Family; Visit Provider Advanced Practice Midwife | DX: Z30.42 Encounter for surveillance of injectable contraceptive (principal) | CPT/HCPCS: 96372 ==

== ENCOUNTER 2022-05-21 09:01 | Outpatient (REF) | payer BC, SELFPAY ==
[2022-05-21 11:19] LABS: MANUAL DIFF FLAG NO
[2022-05-21 11:41] LABS: Basophils Absolute Auto 0.1 X10*3/uL (0.0-0.2); Basophils Percent Auto 1.4 % (0-2); Eosinophils Absolute Auto 0.1 X10*3/uL (0.0-0.4); Eosinophils Percent Auto 1.9 % (0-4); Hematocrit 43.1 % (37.0-47.0); Hemoglobin 14.1 g/dl (12.0-16.0); Imm Gran Abs Auto 0.02 X10*3/uL (0.00-0.03); Imm Gran Pct Auto 0.3 % (0.0-0.4); Lymphocytes Absolute Auto 1.7 X10*3/uL (1.2-4.9); Lymphocytes Percent Auto 29.7 % (20-40); Mean Corpuscular HGB Conc 32.7 g/dl (31.0-35.0); Mean Corpuscular Hemoglobin 29.3 pg (27.0-33.0); Mean Corpuscular Volume 89.6 fL (80.0-98.0); Mean Platelet Volume 10.5 fL (9.4-12.3); Monocytes Absolute Auto 0.3 X10*3/uL (0.1-1.2); Monocytes Percent Auto 5.5 % (2-11); Neutrophils Absolute Auto 3.6 x10*3/uL (2.0-8.3); Neutrophils Percent Auto 61.2 % (45-73); Platelet Count 390 X10*3/uL (160-400); Red Blood Count 4.81 X10*6/uL (4.20-5.50); Red Cell Distribution Width 12.9 % (11.0-16.0); White Blood Count 5.9 X10*3/uL (4.8-10.8)
[2022-05-21 12:29] LABS: TSH reflex Free T4 6.75 uIU/mL (0.32-4.0)
[2022-05-21 13:05] LABS: Free T4 (Free Thyroxine) 0.85 ng/dL (0.71-1.85)
== END 2022-05-21 09:02 | disposition home or self-care (01) ==
LOC: HO.HMGCLDS 09:01
PROVIDERS: PCP Nurse Practitioner Family; Visit Provider Nurse Practitioner Family
DX: E03.9 Hypothyroidism, unspecified (principal)
CPT/HCPCS: 36415; 84439; 84443; 85025

== ENCOUNTER → 2022-06-22 08:41 | Outpatient (BNVA) | payer BC, SELFPAY | PROVIDERS: PCP Nurse Practitioner Family; Visit Provider Advanced Practice Midwife | DX: Z30.42 Encounter for surveillance of injectable contraceptive (principal) | CPT/HCPCS: 96372 ==

== ENCOUNTER → 2022-09-08 08:37 | Outpatient (BNVA) | payer BC, SELFPAY | PROVIDERS: PCP Nurse Practitioner Family; Visit Provider Advanced Practice Midwife | DX: Z30.42 Encounter for surveillance of injectable contraceptive (principal) | CPT/HCPCS: 96372 ==

== ENCOUNTER 2022-12-01 09:30 | Outpatient (AMB) | payer BC, SELFPAY ==
[2022-12-01 09:43] VITALS: BMI 36.9
--- NOTE | 2022-12-01 09:43 | AM.OFFVISNUR ---
Intake Vital Signs 12/01/22 09:43 Height 5 ft 2 in Weight 202 lb BMI 36.9 Intake Visit Reasons: DEPO Emergency Medical Dispatcher Required: No Allergies codeine Allergy (Unknown, Verified 08/18/22 17:26) nausea and vomiting Is last menstrual period known: No Post menopausal: No Patient : No Nursing Note Lexie is here for scheduled Depo provera injection. No c/o. Pt tolerated injection well. Pt advised to schedule next injection in 12 weeks. Pt verbalizes understanding and agrees with plan. No further questions. Office Procedures Depo Questionnaire If YES to any of the following questions, please consult a provider. Date of last injection: 09/08/22 Date of last gynecology exam: 06/22/22 Menstrual pattern since last injection has been: Not Applicable Irregular bleeding?: No Breast lumps or other breast changes?: No Changes in weight or appetite?: No Depression or changes in mood?: No Abnormal hair growth or loss?: No Skin problems (rash, acne, discoloration)?: No Pain at the injection site?: No Headaches?: No Nervousness?: No Abdominal pain or cramping?: No Dizziness or nausea?: No Fatigue or weakness?: No Decrease in sexual drive?: No Chest pain or shortness of breath?: No Swelling in arms or legs?: No Form completed by?: Nora Hazel RN Office Meds Depo-Provera 150 mg/mL intramuscular syringe Performing Provider: Yulia Landin CNM Performing Location: [facility] [place] [facility] [place] [facility] Administered by: Nora Hazel on 12/01/22 09:46 Dose Route Admin Location Dispensed Lot Number Expiration Date [facility] Refrigerator Car Icer 150 mg IM left deltoid 1 mL [id number] 06/19/24 7678-2682-29 [facility] Coding Patient Type Established History Problem Focused Medical Decision Making Straight Forward Time Spent (min) 11 Assessment & Plan Assessment & Plan Orders: Orders AMB Medroxyprogesterone Injection Patient Supplied Today Z30.42 - Encounter for surveillance of injectable contraceptive
== END 2022-12-01 09:42 | disposition home or self-care (01) ==
PROVIDERS: PCP Nurse Practitioner Family; Visit Provider Advanced Practice Midwife
DX: Z30.42 Encounter for surveillance of injectable contraceptive (principal)

== ENCOUNTER → 2022-12-01 09:30 | Outpatient (BNVA) | payer BC, SELFPAY | PROVIDERS: PCP Nurse Practitioner Family; Visit Provider Advanced Practice Midwife | DX: Z30.42 Encounter for surveillance of injectable contraceptive (principal) | CPT/HCPCS: 96372; J1050 ==

== ENCOUNTER 2022-12-31 07:50 | Outpatient (AMB) | payer BC, SELFPAY ==
--- NOTE | 2022-12-31 07:55 | MHC.OFFVIS ---
Intake Vital Signs 12/31/22 07:56 Height 5 ft 2 in Weight 199 lb BMI 36.4 BP 116/76 Intake Visit Reasons: Annual Intake Note: The patient agreed to use of a medical detail representative during this encounter. Scribed for JUAN ANTONIO [place] by Yaz Das medical detail representative, on 12/31/2022 at 7:53 am, EST. Stock Repairer: Stock Repairer Present (Samantha) Allergies codeine Allergy (Unknown, Verified 12/31/22 07:56) nausea and vomiting Medication List - Last Reconciled 12/31/22 by Yulia Landin CNM levothyroxine 125 mcg PO DAILY 90 days medroxyprogesterone (Depo-Provera) 150 mg IM [id number] sertraline 150 mg (1.5 x 100 mg) PO DAILY 90 days HPI HPI Comments History of Present Illness Details She is a premenopausal woman presenting for annual exam. Doing well with no administrative office manager concerns. Tries to eat healthy and stay active, she is walking for exercise while at work. Currently sexually active. Uses Depo Provera for BC. Reports spotting. Denies vaginal itching and irritation. STD screening offered; she deferred. Denies family history of breast, colon and ovarian cancer. Last pap smear 12/22/2018. She reports a history of prior cyst in the right breast prior. Patient denies any contraindications to Depo including blood clotting disorders, DVT, PE and breast lumps. [facility] Medical History Right flank pain Recurrent major depressive disorder in partial remission Bilateral headaches Irregular menses Acquired hypothyroidism Surgical History History of tooth extraction Family History Father Cholesterol embolus syndrome Substance use disorder Mental health disorder Mother Multiple sclerosis Mental health disorder Brother Substance use disorder Paternal Grandfather Substance use disorder Social History Household Members: Spouse and Children Housing: House Alcohol intake: former Patient Tobacco Use Status: Former Tobacco user e-Cigarette/Vaping Use: Never Used Second Hand Smoke Exposure: No (sometimes ) service: No Current occupational status: employed 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 Sexual orientation: Straight/Heterosexual Gender identity: Female Cognitive needs: No Hearing needs: No Vision needs: No Female Reproductive History Menstrual Age of Menarche: 10 control method: progesterone injection Total pregnancies: 2 Full term: 2 Number of Living Children: 2 Date of last pap smear: 12/22/18 (neg pap and hpv) Review of Systems Const All systems reviewed & are unremarkable except as noted in HPI and below Physical Exam Vital Signs: Last Vital Signs BP 116/76 12/31/22 07:56 BMI result Body Mass Index 36.4 Const General: cooperative, healthy appearing, no acute distress, well developed and alert Orientation/consciousness: patient oriented x3 HEENT Head: Yes normal to inspection Eyes General: appearance normal, both eyes and all related structures Neck Neck: Yes normal visual inspection Thyroid: Thyroid normal Chest Other: breast lump, tender left breast at 7-8:00 Chest palpation & inspection: normal inspection of the chest Breast/axilla inspection: normal inspection of the breasts (no puckering, dimpling, peau de orange, retraction, discharge, masses) Breast/axilla palpation: normal palpation of the breasts Resp Effort & Inspection: normal respiratory effort GI Inspection: Yes normal to inspection Palpation (GI): Soft to palpation Rectal Exam - Female: deferred General: Yes bladder normal to inspection and Yes bladder normal to palpation External Female Exam: normal external appearance and normal appearance of the urethra Speculum Exam - Vagina: normal appearance of the vagina and normal palpation Speculum Exam - Cervix: normal palpation Bimanual exam- vagina & uterus: normal bimanual exam, normal palpation, uterine size normal, bladder normal to palpation and normal palpation Bimanual Exam- Adnexa, other: normal adnexae and no masses Skin General skin exam: no rashes or lesions noted Neuro General: patient oriented x3 Cognition (Neuro): normal cognition Extrem General: Yes normal to inspection Psych Attitude: cooperative Thought process: Normal thought process present Assessment & Plan Assessment & Plan (1) Encounter for well woman exam: Code(s): Z01.419 - Encounter for gynecological examination (general) (routine) without abnormal findings Plan: Discussed: Current recommendations for pap smears per ASCCP guidelines. Breast awareness and periodic self breast exams. Maintaining a healthy lifestyle including a well balanced diet and routine exercise. All of her questions and concerns were addressed to the best of my ability. She will return in one year for AG. (2) Surveillance for Depo-Provera contraception: Code(s): Z30.42 - Encounter for surveillance of injectable contraceptive Plan: Reviewed use, side effects and warnings and decrease of bone loss which is usually reversible after stopping in a young woman. Encouraged Calcium and Vitamin D. Counseled on skilled nursing use of Depo and discontinuing use in her 40's. Will have further discussion in the future. Recommended Mirena IUD at that time. She was instructed to go to ER if she develops loss of vision, severe headache that does not resolve, chest pain, difficulty breathing, abdominal pain, or severe pain or tenderness in extremity or new breast lumps. She will call the office with any concerns. (3) Mass of left breast: Code(s): N63.20 - Unspecified lump in the left breast, unspecified quadrant Plan: Left breast 7-8 o?clock position. Order sent for mammogram and ultrasound. Follow up for results. Orders: Orders US breast LT complete Today N63.20 - Unspecified lump in the left breast, unspecified quadrant MM tomosynthesis diagnostic BI Today N63.20 - Unspecified lump in the left breast, unspecified quadrant, Z12.31 - Encounter for screening mammogram for malignant neoplasm of breast Medications: Changed From medroxyprogesterone (Depo-Provera) 150 mg IM [id number] 1 mL 3RF To medroxyprogesterone (Depo-Provera) 150 mg IM Q12W 1 mL 4RF Coding Level of Care Code Est Pt Prev Care 18-39y(55076) Diagnoses Encounter for well woman exam Z01.419 Surveillance for Depo-Provera contraception Z30.42 Mass of left breast N63.20
[2022-12-31 07:56] VITALS: BP 116/76; BMI 36.4
== END 2022-12-31 08:47 | disposition home or self-care (01) ==
PROVIDERS: PCP Nurse Practitioner Family; Visit Provider Advanced Practice Midwife
DX: Z01.419 Encounter for gynecological examination (general) (routine) without abnormal findings (principal); Z30.42 Encounter for surveillance of injectable contraceptive; N63.20 Unspecified lump in the left breast, unspecified quadrant
CPT/HCPCS: 99395

== ENCOUNTER → 2022-12-31 07:50 | Outpatient (BNVA) | payer BC, SELFPAY | PROVIDERS: Visit Provider Advanced Practice Midwife ==

== ENCOUNTER 2023-01-26 08:01 | Outpatient (AMB) | payer BC, SELFPAY ==
--- NOTE | 2023-01-26 08:14 | MHC.OFFWIV ---
Intake Vital Signs 01/26/23 08:15 Height 5 ft 2 in Weight 197 lb 8 oz BMI 36.1 BP 118/70 Blood Pressure Location Rt brachial Position Sitting Pulse 86 Pulse Source Pulse Oximeter Temp 98.6 F Temp Source Temporal Artery Scan Pulse Oximetry (%) 98 Intake Visit Reasons: EP, cough, congestion (masked) Intake Note: pt is here for c/o cough and congestion since november Patient Tobacco Use Status: Former Tobacco user Allergies codeine Allergy (Unknown, Verified 01/26/23 08:22) nausea and vomiting Medication List - Last Reconciled 01/26/23 by Basilio Reyes MD levothyroxine 125 mcg PO DAILY 90 days medroxyprogesterone (Depo-Provera) 150 mg IM Q12W sertraline 150 mg (1.5 x 100 mg) PO DAILY 90 days Do you need a note to return to daycare/school/sports/work: Yes HPI EP, cough, congestion (masked) HPI Details Patient presents for a sick visit. Reporting symptoms of sinus congestion, sore throat and difficulty swallowing. Low-grade fever. No family member is sick. No recent travel. Patient reports symptoms of malaise and fatigue. [facility] Medical History Right flank pain Recurrent major depressive disorder in partial remission Bilateral headaches Irregular menses Acquired hypothyroidism Surgical History History of tooth extraction Family History Father Cholesterol embolus syndrome Substance use disorder Mental health disorder Mother Multiple sclerosis Mental health disorder Brother Substance use disorder Paternal Grandfather Substance use disorder Social History Household Members: Spouse and Children Housing: House Alcohol intake: former Patient Tobacco Use Status: Former Tobacco user e-Cigarette/Vaping Use: Never Used Second Hand Smoke Exposure: No (sometimes ) service: No Current occupational status: employed 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 Sexual orientation: Straight/Heterosexual Gender identity: Female Cognitive needs: No Hearing needs: No Vision needs: No Female Reproductive History Menstrual Age of Menarche: 10 Physical Exam Vital Signs: Last Vital Signs Temp 98.6 F 01/26/23 08:15 Pulse 86 01/26/23 08:15 BP 118/70 01/26/23 08:15 Pulse Ox 98 01/26/23 08:15 BMI result Body Mass Index 36.1 Const General: cooperative and healthy appearing Nutritional Appearance: well nourished Orientation/consciousness: patient oriented x3 Limitations: no limitations HEENT Head: Yes normal to inspection Eyes General: appearance normal, both eyes and all related structures Neck Neck: Yes normal visual inspection Chest Chest palpation & inspection: normal palpation of entire chest wall Resp Effort & Inspection: normal respiratory effort Neuro General: patient oriented x3 Assessment & Plan Assessment & Plan (1) Upper respiratory tract infection: Code(s): J06.9 - Acute upper respiratory infection, unspecified Plan: Antibiotics ordered. Increase fluid intake. Tylenol for aches and pains. If symptoms worsen, follow-up here for a recheck. Coding Level of Care Code Est Pt Level 3 (38298) Diagnoses Upper respiratory tract infection J06.9
[2023-01-26 08:15] VITALS: BP 118/70; PULSE 86; TEMP 37; O2SAT 98; BMI 36.1
== END 2023-01-26 08:29 | disposition home or self-care (01) ==
LOC: HO.HMGWI 08:01
PROVIDERS: PCP Nurse Practitioner Family
DX: J06.9 Acute upper respiratory infection, unspecified (principal)
CPT/HCPCS: 99213

== ENCOUNTER 2023-01-26 08:24 | Outpatient (REF) | payer BC, SELFPAY ==
[2023-01-26 11:21] LABS: MANUAL DIFF FLAG NO
[2023-01-26 11:26] LABS: Basophils Absolute Auto 0.1 X10*3/uL (0.0-0.2); Basophils Percent Auto 0.7 % (0-2); Eosinophils Absolute Auto 0.2 X10*3/uL (0.0-0.4); Eosinophils Percent Auto 2.1 % (0-4); Hematocrit 43.1 % (37.0-47.0); Hemoglobin 14.3 g/dl (12.0-16.0); Imm Gran Abs Auto 0.03 X10*3/uL (0.00-0.03); Imm Gran Pct Auto 0.4 % (0.0-0.4); Lymphocytes Absolute Auto 1.6 X10*3/uL (1.2-4.9); Lymphocytes Percent Auto 20.3 % (20-40); Mean Corpuscular HGB Conc 33.2 g/dl (31.0-35.0); Mean Corpuscular Hemoglobin 29.4 pg (27.0-33.0); Mean Corpuscular Volume 88.5 fL (80.0-98.0); Monocytes Absolute Auto 0.4 X10*3/uL (0.1-1.2); Monocytes Percent Auto 4.7 % (2-11); Neutrophils Absolute Auto 5.8 x10*3/uL (2.0-8.3); Neutrophils Percent Auto 71.8 % (45-73); Platelet Count 388 X10*3/uL (160-400); Red Blood Count 4.87 X10*6/uL (4.20-5.50); Red Cell Distribution Width 12.5 % (11.0-16.0)
[2023-01-26 11:27] LABS: Appearance Urine Clear; Color Urine Yellow; Glucose Urine UA Negative (Negative); Leukocyte Esterase Urine Negative (Negative); Nitrite Urine Negative (Negative); Specific Gravity - Urine 1.015 (1.005-1.025); Urine Blood Negative (Negative); Urine Ketones Negative (Negative); Urine Protein Negative (Neg-Trace)
[2023-01-26 12:10] LABS: Alanine Aminotransferase 13 U/L (0-31); Albumin Level 4.3 g/dL (3.5-5.0); Alkaline Phosphatase 68 U/L (39-117); Anion Gap 10 (12-20); Aspartate Amino Transferase 17 U/L (5-31); Bilirubin Total 0.5 mg/dL (0.0-1.0); Blood Urea Nitrogen 9 mg/dL (9-16); Calcium 9.7 mg/dL (8.4-10.2); Carbon Dioxide 25 mmol/L (22-29); Chloride 110 mmol/L (96-108); Cholesterol 171 mg/dL (<200); Estimated Glomerular Filt Rate > 60; Glucose Fasting 93 mg/dL (60-99); HDL Cholesterol 40 mg/dL (>40); LDL Cholesterol Calculated 114 mg/dL (<100); Potassium 4.2 mmol/L (3.3-5.1); Sodium 141 mmol/L (135-145); Total Protein 7.6 g/dL (6.5-8.0); Triglycerides 88 mg/dL (<150)
[2023-01-26 12:11] LABS: TSH reflex Free T4 2.81 uIU/mL (0.32-4.0)
== END 2023-01-26 08:25 | disposition home or self-care (01) ==
LOC: HO.HMGCLDS 08:24
PROVIDERS: PCP Nurse Practitioner Family; Visit Provider Nurse Practitioner Family
DX: Z00.00 Encounter for general adult medical examination without abnormal findings (principal); R94.6 Abnormal results of thyroid function studies; R79.89 Other specified abnormal findings of blood chemistry
CPT/HCPCS: 36415; 80053; 80061; 81003; 84443; 85025

== ENCOUNTER 2023-01-27 13:55 | Outpatient (REF) | payer BC, SELFPAY ==
--- NOTE | ~2023-01-27 | MM_ITS ---
EXAMINATION: MM DIAGNOSTIC DIGITAL BREAST TOMOSYNTHESIS, BILATERAL AND LEFT BREAST ULTRASOUND CLINICAL INFORMATION: Palpable lump of the lower inner quadrant of the left breast. COMPARISON: Mammography: This study is compared with prior mammograms dating back to 2019. TECHNIQUE: Digital breast tomosynthesis is performed in both the craniocaudal and mediolateral oblique views along with computer-aided detection (CAD). Synthesized 2D images are generated from the tomosynthesis. CC and MLO spot compression of the lower inner quadrant of the left breast, in the area of the lumbar performed. In addition, a full lateral view of the right breast was also performed. MAMMOGRAM: FINDINGS: There are scattered areas of fibroglandular density (ACR BI-RADS breast composition Category b). There are no significant masses, abnormal calcifications, or other abnormalities in either breast. There are no mammographic abnormalities in the area of the palpable left breast lump, the lower inner quadrant. ULTRASOUND: TECHNIQUE: Targeted sonography of the patient's palpable left breast lump was performed. FINDINGS: Sonography of the left breast, 9 o'clock 5 centimeters from the nipple shows no discrete abnormality. MM/MM tomosynthesis diagnostic BI IMPRESSION: No mammographic or sonographic abnormalities of either breast. No mammographic or sonographic findings in the area of patient's palpable concern in the left breast. Clinical follow-up of the patient's palpable lump is advised. ASSESSMENT: BI-RADS BI-RADS 1 - Negative RECOMMENDATION: 1 year F/U Results were provided to the patient at time of visit by the technologist. This patient's information was entered into a reminder system with a target due date for their next mammogram.
== END 2023-01-27 13:56 | disposition home or self-care (01) ==
LOC: HO.MAMMO 13:55
PROVIDERS: PCP Nurse Practitioner Family; Visit Provider Advanced Practice Midwife
DX: N63.24 Unspecified lump in the left breast, lower inner quadrant (principal)
CPT/HCPCS: 76642; 77062; 77066

== ENCOUNTER → 2023-01-27 14:30 | Outpatient (BNV) | payer BC, SELFPAY | PROVIDERS: PCP Nurse Practitioner Family; Visit Provider Radiology Diagnostic Radiology | DX: N63.24 Unspecified lump in the left breast, lower inner quadrant (principal) | CPT/HCPCS: 76642; 77062; 77066 ==

== ENCOUNTER 2023-02-15 08:23 | Outpatient (AMB) | payer BC, SELFPAY ==
--- NOTE | 2023-02-15 08:30 | MHC.PC.OV ---
Vital Signs 02/15/23 08:32 Height 5 ft 2 in Weight 197 lb BMI 36.0 BP 118/76 Blood Pressure Location Rt brachial Position Sitting Pulse 78 Pulse Source Pulse Oximeter Pulse Oximetry (%) 98 Oxygen Delivery Method Room Air Intake Visit Reasons: 6 Month follow up Intake Note: Patient would like to talk about a cough that has been present for about 2 months which has caused right side of rib pain. And would like to talk about decreasing meds for anxiety and depression. Allergies codeine Allergy (Unknown, Verified 02/15/23 08:34) nausea and vomiting Tobacco use date assessed: 08/18/22 HPI 6 Month follow up HPI Details Pt c/o cough. She was recently seen in the walk-in for sinus congestion and sore throat. She was treated with antibiotics. Pt also c/o upper right lateral rib pain due to coughing. She has tried tylenol and ibuprofen with no relief. Will order XR (ribs). Denies fever, chills, and shortness of breath. ?cough source from fall allergies. Instructed to take cetirizine or claritin on a daily basis until mid winter. Will cont to monitor. post nasal drip also reported PFSH Medical History Right flank pain Recurrent major depressive disorder in partial remission Bilateral headaches Irregular menses Acquired hypothyroidism Surgical History History of tooth extraction Family History Father Cholesterol embolus syndrome Substance use disorder Mental health disorder Mother Multiple sclerosis Mental health disorder Brother Substance use disorder Paternal Grandfather Substance use disorder Household Members: Spouse and Children Housing: House Alcohol intake: former Patient Tobacco Use Status: Former Tobacco user e-Cigarette/Vaping Use: Never Used Second Hand Smoke Exposure: No (sometimes ) service: No Current occupational status: employed 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 José Miguel Arnett, Jayla Lagos, Tang Luque and colleagues, with an educational estefania from [employer]. Review of Systems Const Reports as per HPI Physical exam (Primary Care) Vital Signs: Last Vital Signs Pulse 78 02/15/23 08:32 BP 118/76 02/15/23 08:32 Pulse Ox 98 02/15/23 08:32 Oxygen Delivery Method Room Air 02/15/23 08:32 BMI result Body Mass Index 36.0 Tobacco/Smoking Status: Tobacco use Status Tobacco use date assessed 08/18/22 02/15/23 08:30 Patient Tobacco Use Status Former Tobacco user 02/15/23 08:30 e-Cigarette/Vaping Use Never Used 02/15/23 08:30 Thrive Assessment: Date of Thrive Assessment Date Thrive assessed 05/25/22 02/15/23 08:30 Const General: cooperative Nutritional Appearance: obese Orientation/consciousness: patient oriented x3 HENMT Ears: TM's normal bilaterally Neck Neck: Yes no lymphadenopathy Resp Effort & Inspection: normal respiratory effort Auscultation: clear to auscultation bilaterally Cardio Rate: regular rate Rhythm: regular rhythm Heart sounds: S1 normal heart sound present and S2 normal heart sound present Neuro General: patient oriented x3 Psych Appearance: grossly normal Mental Status: mental status grossly normal Speech and movement: Normal speech and movement present Affect: normal affect Attitude: cooperative Thought process: Normal thought process present Thought content: Normal thought content present Insight: Good insight present (Psych) Judgement: Good judgement present (Psych) Assessment and Plan Assessment & Plan (1) Chronic cough: Code(s): R05.3 - Chronic cough Plan: XR ordered, starting zyrtec on a daily basis, bid. (2) Rib pain on right side: Code(s): R07.81 - Pleurodynia Plan: XR ordered Plan The patient agreed to the use of a spanish medical interpreter for this encounter. Scribed for SRIKANTH Espinal by Starr Wills spanish medical interpreter, on 02/15/2023 at 08:55 EST. Orders: Orders XR ribs RT 2V Today R05.3 - Chronic cough, R07.81 - Pleurodynia Coding Level of Care Code Est Pt Level 3 (01055) Diagnoses Chronic cough R05.3 Rib pain on right side R07.81
[2023-02-15 08:32] VITALS: BP 118/76; PULSE 78; O2SAT 98; BMI 36.0
== END 2023-02-15 09:12 | disposition home or self-care (01) ==
PROVIDERS: Visit Provider Nurse Practitioner Family
DX: R05.3 Chronic cough (principal); R07.81 Pleurodynia
CPT/HCPCS: 99213

== ENCOUNTER 2023-02-19 10:06 | Outpatient (AMB) | payer BC, SELFPAY ==
--- NOTE | 2023-02-19 10:23 | MHC.OFFVIS ---
Intake Vital Signs 02/19/23 10:28 Height 5 ft 2 in Weight 196 lb 3.382 oz BMI 35.9 BP 120/74 Intake Visit Reasons: Ultrasound breast follow up/Depo Precision Assembly Inspector Required: No Information Interpreted: non-clinical & clinical Auto Air Conditioning Mechanic: Auto Air Conditioning Mechanic Present (Mary Mcguire ANY) Accompanied by: Son Allergies codeine Allergy (Unknown, Verified 02/19/23 10:29) nausea and vomiting Medication List - Last Reconciled 02/19/23 by Yulia Landin CNM levothyroxine 125 mcg PO DAILY 90 days sertraline 150 mg (1.5 x 100 mg) PO DAILY 90 days Is last menstrual period known: No (depo shot) HPI HPI Comments History of Present Illness Details Patient is here today for her test results of her breast ultrasound mammogram, due to breast pain, reports is generalized and bilaterally. Her young son is present at today's visit. She is also here for her Depo-Provera injection doing well. It has her annual exam. [facility] Medical History Right flank pain Recurrent major depressive disorder in partial remission Bilateral headaches Irregular menses Acquired hypothyroidism Surgical History History of tooth extraction Family History Father Cholesterol embolus syndrome Substance use disorder Mental health disorder Mother Multiple sclerosis Mental health disorder Brother Substance use disorder Paternal Grandfather Substance use disorder Social History Household Members: Spouse and Children Housing: House Alcohol intake: former Patient Tobacco Use Status: Former Tobacco user e-Cigarette/Vaping Use: Never Used Second Hand Smoke Exposure: No (sometimes ) service: No Current occupational status: employed 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 Sexual orientation: Straight/Heterosexual Gender identity: Female Cognitive needs: No Hearing needs: No Vision needs: No Female Reproductive History Menstrual Age of Menarche: 10 control method: progesterone injection Review of Systems ENT Reports no additional complaints Neuro Reports no additional complaints Psych Reports no additional complaints Endo Reports no additional complaints Physical Exam Vital Signs: Last Vital Signs BP 120/74 02/19/23 10:28 BMI result Body Mass Index 35.9 Const General: cooperative, healthy appearing, comfortable and no acute distress Chest Other: Declines a breast exam today. Psych Appearance: grossly normal Attitude: cooperative Thought process: Normal thought process present Office Procedures Depo Questionnaire If YES to any of the following questions, please consult a provider. Date of last injection: 02/19/23 Menstrual pattern since last injection has been: Not Applicable Irregular bleeding?: No Breast lumps or other breast changes?: No Changes in weight or appetite?: No Depression or changes in mood?: No Abnormal hair growth or loss?: No Skin problems (rash, acne, discoloration)?: No Pain at the injection site?: No Headaches?: No Nervousness?: No Abdominal pain or cramping?: No Dizziness or nausea?: No Fatigue or weakness?: No Decrease in sexual drive?: No Chest pain or shortness of breath?: No Swelling in arms or legs?: No Form completed by?: Nora Hazel supervisor belt and link assembly Meds Depo-Provera 150 mg/mL intramuscular syringe Performing Provider: Yulia Landin CNM Performing Location: [facility] [place] [facility] Administered by: Nora Hazel on 02/19/23 11:02 Dose Route Admin Location Dispensed Lot Number Expiration Date [facility] Social Staff Worker 150 mg IM right deltoid 1 mL [id number] 06/19/24 5593-5804-25 [facility] Results Reviewed Results Reviewed: [facility] [address] [place] [address] Ultrasound Report Signed Patient: Lexie Jenkins MR#: [id number] : 1990 Acct:[id number] Age/Sex: 32 / F ADM Date: 01/27/23 Loc: HO.MAMMO Attending Dr: Yulia Landin CNM Ordering Physician: Yulia Landin CNM Date of Service: 01/27/23 Procedure(s): US breast LT limited mamm only Accession Number(s): [id number] cc: Link Carranza [id number] SOFTWARE ENGINEER-BC; Yulia Landin CNM~ EXAMINATION: MM DIAGNOSTIC DIGITAL BREAST TOMOSYNTHESIS, BILATERAL AND LEFT BREAST ULTRASOUND CLINICAL INFORMATION: Palpable lump of the lower inner quadrant of the left breast. COMPARISON: Mammography: This study is compared with prior mammograms dating back to 2019. TECHNIQUE: Digital breast tomosynthesis is performed in both the craniocaudal and mediolateral oblique views along with computer-aided detection (CAD). Synthesized 2D images are generated from the tomosynthesis. CC and MLO spot compression of the lower inner quadrant of the left breast, in the area of the lumbar performed. In addition, a full lateral view of the right breast was also performed. MAMMOGRAM: FINDINGS: There are scattered areas of fibroglandular density (ACR BI-RADS breast composition Category b). There are no significant masses, abnormal calcifications, or other abnormalities in either breast. There are no mammographic abnormalities in the area of the palpable left breast lump, the lower inner quadrant. ULTRASOUND: TECHNIQUE: Targeted sonography of the patient's palpable left breast lump was performed. FINDINGS: Sonography of the left breast, 9 o'clock 5 centimeters from the nipple shows no discrete abnormality. US/US breast LT limited mamm only IMPRESSION: No mammographic or sonographic abnormalities of either breast. No mammographic or sonographic findings in the area of patient's palpable concern in the left breast. Clinical follow-up of the patient's palpable lump is advised. ASSESSMENT: BI-RADS BI-RADS 1 - Negative RECOMMENDATION: 1 year F/U Results were provided to the patient at time of visit by the technologist. This patient's information was entered into a reminder system with a target due date for their next mammogram. Dictated By: Akilah Feng MD Assessment & Plan Assessment & Plan (1) Mastalgia: Code(s): N64.4 - Mastodynia Plan: Discussed ultrasound findings advised patient report any new changes persistent pain or any breast lumps. (2) Surveillance for Depo-Provera contraception: Code(s): Z30.42 - Encounter for surveillance of injectable contraceptive (3) Encounter to discuss test results: Code(s): Z71.2 - Person consulting for explanation of examination or test findings (4) Depo-Provera contraceptive status: Code(s): Z30.42 - Encounter for surveillance of injectable contraceptive Plan Discussed ultrasound and mammogram finding. Patient declined breast exam today and has no other concerns. She plans to continue with her Depo-Provera. Reschedule next Depo in 12 weeks Rx for medication switch to [facility] pharmacy. All of her questions and concerns were addressed to the best of my ability and shared decision making. She is agreeable to the plan of care. Orders: Orders AMB Medroxyprogesterone Injection Patient Supplied Today Z30.42 - Encounter for surveillance of injectable contraceptive Medications: New medroxyprogesterone (Depo-Provera) 150 mg IM [id number] 90 days 1 mL 4RF Discontinued medroxyprogesterone (Depo-Provera) Discontinued Reason: Duplicate 150 mg IM Q12W 1 mL 4RF Coding Level of Care Code Est Pt Level 3 (59110) Diagnoses Mastalgia N64.4 Surveillance for Depo-Provera contraception Z30.42 Encounter to discuss test results Z71.2 Depo-Provera contraceptive status Z30.42
[2023-02-19 10:28] VITALS: BP 120/74; BMI 35.9
== END 2023-02-19 10:56 | disposition home or self-care (01) ==
PROVIDERS: PCP Nurse Practitioner Family; Visit Provider Advanced Practice Midwife
DX: N64.4 Mastodynia (principal); Z30.42 Encounter for surveillance of injectable contraceptive; Z71.2 Person consulting for explanation of examination or test findings
CPT/HCPCS: 99213

== ENCOUNTER → 2023-02-19 10:06 | Outpatient (BNVA) | payer BC, SELFPAY | PROVIDERS: PCP Nurse Practitioner Family; Visit Provider Advanced Practice Midwife | DX: Z30.42 Encounter for surveillance of injectable contraceptive (principal); N64.4 Mastodynia | CPT/HCPCS: 96372; J1050 ==

== ENCOUNTER 2023-05-04 12:54 | Outpatient (AMB) | payer BC, SELFPAY ==
[2023-05-04 12:58] VITALS: BP 118/80; PULSE 96; TEMP 36.3; O2SAT 97; BMI 34.0
--- NOTE | 2023-05-04 12:58 | MHC.OFFWIV ---
Intake Vital Signs 05/04/23 12:58 Height 5 ft 2 in Weight 186 lb BMI 34.0 BP 118/80 Blood Pressure Location Lt brachial Position Sitting Pulse 96 Pulse Source Pulse Oximeter Temp 97.4 F Temp Source Temporal Artery Scan Pulse Oximetry (%) 97 Oxygen Delivery Method Room Air Intake Visit Reasons: EST/sinus pressure(lobby masked) Intake Note: pt is here today for sinus pressure started november Patient Tobacco Use Status: Former Tobacco user Allergies codeine Allergy (Unknown, Verified 05/04/23 13:04) nausea and vomiting Medication List - Last Reconciled 05/04/23 by VITA Mir albuterol sulfate 90 mcg/actuation 2 inhalations inhalation Q8H PRN amoxicillin 875 mg PO BID 7 days levothyroxine 125 mcg PO DAILY 90 days medroxyprogesterone (Depo-Provera) 150 mg IM [id number] 90 days sertraline 150 mg (1.5 x 100 mg) PO DAILY 90 days Do you need a note to return to daycare/school/sports/work: No HPI HPI Comments History of Present Illness Details 32-year-old female presents today complaining of sinus pressure and pain intermittently for a few months. She states she has sinus pressure in her maxillary sinus and nasal congestion with a persistent cough. [facility] Medical History Right flank pain Recurrent major depressive disorder in partial remission Bilateral headaches Irregular menses Acquired hypothyroidism Surgical History History of tooth extraction Family History Father Cholesterol embolus syndrome Substance use disorder Mental health disorder Mother Multiple sclerosis Mental health disorder Brother Substance use disorder Paternal Grandfather Substance use disorder Social History Household Members: Spouse and Children Housing: House Alcohol intake: former Patient Tobacco Use Status: Former Tobacco user e-Cigarette/Vaping Use: Never Used Second Hand Smoke Exposure: No (sometimes ) service: No Current occupational status: employed 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 Sexual orientation: Straight/Heterosexual Gender identity: Female Cognitive needs: No Hearing needs: No Vision needs: No Female Reproductive History Menstrual Age of Menarche: 10 Review of Systems ENT Reports nasal congestion, Reports nasal discharge, Reports sinus pain and Reports sinus pressure Resp Reports chest congestion and Reports cough Physical Exam Vital Signs: Last Vital Signs Temp 97.4 F 05/04/23 12:58 Pulse 96 05/04/23 12:58 BP 118/80 05/04/23 12:58 Pulse Ox 97 05/04/23 12:58 Oxygen Delivery Method Room Air 05/04/23 12:58 BMI result Body Mass Index 34.0 Const General: no acute distress HEENT Head: Yes normal to inspection, Yes normocephalic and Yes atraumatic Ears: hearing grossly normal bilaterally, external ears normal, TM's normal bilaterally, TM normal on the right and TM normal on the left General nose exam: Normal external nose present Face and sinus: Yes sinus tenderness Mouth: Normal oral and palatal mucosa present Throat: Yes posterior oropharynx normal Resp Effort & Inspection: normal respiratory effort Auscultation: clear to auscultation bilaterally Cardio Rate: regular rate Rhythm: regular rhythm Assessment & Plan Assessment & Plan (1) Sinusitis: Code(s): J32.9 - Chronic sinusitis, unspecified Plan: The patient will use amoxicillin 875 for 7 days. She will also use albuterol inhaler twice a day for 5 days to help with persistent cough. Follow-up with PCP Plan See plan Medications: New amoxicillin 875 mg PO BID 7 days 14 tabs 0RF albuterol sulfate 90 mcg/actuation 2 inhalations inhalation Q8H PRN 8.5 grams 0RF shortness of breath or wheezing Coding Level of Care Code Est Pt Level 3 (57645) Diagnoses Sinusitis J32.9
== END 2023-05-04 14:15 | disposition home or self-care (01) ==
PROVIDERS: PCP Nurse Practitioner Family; Visit Provider Physician Assistant Medical
DX: J32.9 Chronic sinusitis, unspecified (principal)
CPT/HCPCS: 99214

== ENCOUNTER 2023-05-14 08:29 | Outpatient (AMB) | payer BC, SELFPAY ==
[2023-05-14 09:20] VITALS: BMI 33.8
--- NOTE | 2023-05-14 09:20 | AM.OFFVISNUR ---
Intake Vital Signs 05/14/23 09:20 Height 5 ft 2 in Weight 185 lb BMI 33.8 Intake Visit Reasons: DEPO Intake Note: Lexie is here for scheduled Depo provera injection Deputy Prosecuting Attorney Required: No Allergies codeine Allergy (Unknown, Verified 05/04/23 13:04) nausea and vomiting Is last menstrual period known: No Post menopausal: No Patient : No Nursing Note Lexie is here for scheduled Depo provera injection. No c/o. She does not get periods d/t Depo provera. Pt tolerated injection well. She will schedule her next injection in 12 weeks. Pt verbalizes understanding and agrees with plan. No further questions. Office Procedures Depo Questionnaire If YES to any of the following questions, please consult a provider. Date of last injection: 02/19/23 Date of last gynecology exam: 06/22/22 Menstrual pattern since last injection has been: Not Applicable Irregular bleeding?: No Breast lumps or other breast changes?: No Changes in weight or appetite?: No Depression or changes in mood?: No Abnormal hair growth or loss?: No Skin problems (rash, acne, discoloration)?: No Pain at the injection site?: No Headaches?: No Nervousness?: No Abdominal pain or cramping?: No Dizziness or nausea?: No Fatigue or weakness?: No Decrease in sexual drive?: No Chest pain or shortness of breath?: No Swelling in arms or legs?: No Form completed by?: Nora Hazel RN Office Meds Depo-Provera 150 mg/mL intramuscular syringe Performing Provider: Yulia Landin CNM Performing Location: [facility] [place] Administered by: Nora Hazel on 05/14/23 09:23 Dose Route Admin Location Dispensed Lot Number Expiration Date [facility] Folder Machine Adjuster 150 mg IM right deltoid 1 mL [id number] 11/19/24 38260-881-64 [facility] Coding Level of Care Code Established Pt Procedure Only Patient Type Established Exam Problem Focused Medical Decision Making Straight Forward Time Spent (min) 12 Assessment & Plan Assessment & Plan Orders: Orders AMB Medroxyprogesterone Injection Patient Supplied Today Z30.42 - Encounter for surveillance of injectable contraceptive
== END 2023-05-14 09:02 | disposition home or self-care (01) ==
LOC: HO.HWS 08:30
PROVIDERS: PCP Nurse Practitioner Family; Visit Provider Advanced Practice Midwife
DX: Z30.42 Encounter for surveillance of injectable contraceptive (principal)

== ENCOUNTER → 2023-05-14 08:29 | Outpatient (BNVA) | payer BC, SELFPAY | PROVIDERS: PCP Nurse Practitioner Family; Visit Provider Advanced Practice Midwife | DX: Z30.42 Encounter for surveillance of injectable contraceptive (principal) | CPT/HCPCS: 96372; J1050 ==

== ENCOUNTER 2023-07-09 08:08 | Outpatient (AMB) | payer BC, SELFPAY ==
--- NOTE | 2023-07-09 08:25 | MHC.OFFWIV ---
Intake Vital Signs 07/09/23 08:26 Height 5 ft 2 in Weight 192 lb BMI 35.1 BP 110/80 Blood Pressure Location Lt brachial Position Sitting Pulse 84 Pulse Source Pulse Oximeter Temp 97.0 F Temp Source Temporal Artery Scan Pulse Oximetry (%) 98 Oxygen Delivery Method Room Air Intake Visit Reasons: EP cough congestion sinus (lobby) Intake Note: pt is here today for cough congestion sinus started november Patient Tobacco Use Status: Former Tobacco user Allergies codeine Allergy (Unknown, Verified 07/09/23 08:47) nausea and vomiting Do you need a note to return to daycare/school/sports/work: No HPI EP cough congestion sinus (lobby) HPI Details Patient is a 33-year-old female comes the walk-in clinic complaining of intermittent cough for the last 8 months, and flare-up a few days ago of nasal congestion, sinus pressure, ear pressure, postnasal drip, and increased cough, with coughing fits at times. She has a history of chronic cough as well as post COVID syndrome. She reports immuno compromising issues, but no respiratory issues otherwise. She reports that she has been trying to get in with her primary care for further evaluation of this, keeps having to go to the walk-in or other urgent care providers She also has a right earlobe piercing infection. [facility] Medical History Right flank pain Recurrent major depressive disorder in partial remission Bilateral headaches Irregular menses Acquired hypothyroidism Surgical History History of tooth extraction Family History Father Cholesterol embolus syndrome Substance use disorder Mental health disorder Mother Multiple sclerosis Mental health disorder Brother Substance use disorder Paternal Grandfather Substance use disorder Social History Household Members: Spouse and Children Housing: House Alcohol intake: former Patient Tobacco Use Status: Former Tobacco user e-Cigarette/Vaping Use: Never Used Second Hand Smoke Exposure: No (sometimes ) service: No Current occupational status: employed 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 Sexual orientation: Straight/Heterosexual Gender identity: Female Cognitive needs: No Hearing needs: No Vision needs: No Female Reproductive History Menstrual Age of Menarche: 10 Review of Systems Const All systems reviewed & are unremarkable except as noted in HPI and below Physical Exam Vital Signs: Last Vital Signs Temp 97.0 F 07/09/23 08:26 Pulse 84 07/09/23 08:26 BP 110/80 07/09/23 08:26 Pulse Ox 98 07/09/23 08:26 Oxygen Delivery Method Room Air 07/09/23 08:26 BMI result Body Mass Index 35.1 Const General: cooperative, healthy appearing, no acute distress, alert, awake, Physically active and well groomed; No anxious, diaphoretic, ill appearing, intoxicated appearing, poor hygiene or tired appearing Nutritional Appearance: average body habitus Orientation/consciousness: oriented to person Limitations: no limitations HEENT Head: Yes normal to inspection, Yes normocephalic and Yes atraumatic Ears: hearing grossly normal bilaterally, external ears normal, TM's normal bilaterally and EAC's normal General nose exam: Normal external nose present, Normal septum present, Abnormal mucous membranes and turbinates present and Nasal discharge present Face and sinus: Yes normal facial exam, Yes sinuses nontender, Yes face symmetric and No edema Mouth: Normal oral and palatal mucosa present, lip normal and tongue normal Throat: Yes uvula midline, Yes abnormal tonsil (mildly erythematous bilaterally), No peritonsillar mass, Yes postnasal drainage, No uvular edema and No cobblestoning Eyes General: appearance normal, both eyes and all related structures Neck Neck: Yes normal visual inspection, Yes full ROM, Yes no lymphadenopathy, Yes trachea midline, Yes supple and No anterior neck swelling Chest Chest palpation & inspection: normal palpation of entire chest wall Resp Effort & Inspection: normal respiratory effort, able to speak in complete sentences, no audible wheezes, Actively coughing (Occasional), no grunting, not labored, no nasal flaring, no respiratory distress, no retractions, no stridor, no tripod positioning, no use of accessory muscles and symmetric chest movement Auscultation: clear to auscultation bilaterally, no crackles, no rales, no rhonchi, no wheezes, lung sounds not diminished and No rub present Cardio Palpation: normal PMI Rate: regular rate Rhythm: regular rhythm Heart sounds: S1 normal heart sound present and S2 normal heart sound present Skin Other: Good color, warm and dry Neuro General: oriented to person Psych Appearance: grossly normal Mental Status: mental status grossly normal Speech and movement: Normal speech and movement present Affect: normal affect Attitude: cooperative Thought process: Normal thought process present Insight: Good insight present (Psych) Judgement: Good judgement present (Psych) Results AMB Rapid Strep AMB Rapid Strep Negative Last Edit by Luis Fernando Henson MA on 07/09/23 08:59 Results Reviewed Results Reviewed: Laboratory Last Values Strep Scn Rapid Clinic Negative 07/09/23 08:58 Assessment & Plan Assessment & Plan (1) Chronic cough: Code(s): R05.3 - Chronic cough Plan Patient with history of post COVID syndrome and immunosuppression issues complains of chronic intermittent cough for 8 months. States has tried to see primary care for this and keeps having to see urgent care providers. We did a chest x-ray today due to the length of coughing, which came back unremarkable for acute cardiopulmonary issues however her symptoms were exacerbated just few days ago, so flu COVID and RSV was swabbed and is pending also. To also possible there is an underlying allergy/reactive airway component to this. Currently she is stable, with no shortness of breath. As she reports coughing fits however, I wrote her for a course of prednisone, and I wrote her for doxycycline to cover atypical pneumonia. This should also help to clear the incidental right piercing infection on the earlobe, and she will continue to monitor the area for increased induration/swelling, warmth and redness. She will follow-up in the next few weeks to see PCP and discuss further workup and possible referral to pulmonology. In the meantime, she will be seen sooner if symptoms persist or worsen, or she can go to the emergency department for worrisome symptoms. Orders: Orders SARS-CoV2/FLU/RSV 07/09/23 R09.89 - Other specified symptoms and signs involving the circulatory and respiratory systems XR chest 2V 07/09/23 R05.9 - Cough, unspecified Medications: New doxycycline hyclate 100 mg PO BID 20 caps 0RF 10 days benzonatate 100 mg PO BID-TID PRN 30 caps 0RF cough prednisone then take 3 tabs for 3 days, then 2 tabs for 3 days, then 1 tab for 3 days. 40 mg (4 x 10 mg) PO DAILY 30 tabs 0RF 3 days Coding Level of Care Code Est Pt Level 4 (57859) Diagnoses Chronic cough R05.3
[2023-07-09 08:26] VITALS: BP 110/80; PULSE 84; TEMP 36.1; O2SAT 98; BMI 35.1
== END 2023-07-09 09:25 | disposition home or self-care (01) ==
PROVIDERS: PCP Nurse Practitioner Family; Visit Provider Physician Assistant Medical
DX: R05.3 Chronic cough (principal)
CPT/HCPCS: 99214

== ENCOUNTER 2023-07-09 09:12 | Outpatient (REF) | payer BC, SELFPAY ==
--- NOTE | ~2023-07-09 | XR_ITS ---
EXAMINATION: XR CHEST CLINICAL INFORMATION: Cough COMPARISON: 05/10/2021 TECHNIQUE: 2 views of the chest were obtained. FINDINGS: Mild density overlying the anterior first rib is unchanged from previous studies, likely bony origin. No significant abnormality is noted involving the heart, lungs, mediastinum, bony thorax or soft tissues. XR/XR chest 2V IMPRESSION: No acute cardiopulmonary disease.
[2023-07-09 11:30] LABS: Influenza A PCR NEGATIVE (Negative); Influenza B PCR NEGATIVE (Negative); Resp Syncy Virus RNA Qual PCR NEGATIVE (Negative); SARS COV2 PCR INHOUSE NEGATIVE (Negative)
== END 2023-07-09 09:13 | disposition home or self-care (01) ==
LOC: HO.HMGCX 09:12
PROVIDERS: PCP Nurse Practitioner Family; Visit Provider Physician Assistant Medical
DX: R05.9 Cough, unspecified (principal); R09.89 Other specified symptoms and signs involving the circulatory and respiratory systems; J06.9 Acute upper respiratory infection, unspecified
CPT/HCPCS: 0241U; 71046

== ENCOUNTER 2023-07-09 09:17 | Outpatient (REF) | payer BC, SELFPAY | END 2023-07-09 09:18 | disposition home or self-care (01) | LOC: HO.LNP 09:17 | PROVIDERS: Visit Provider Physician Assistant Medical | DX: Z13.89 Encounter for screening for other disorder (principal) ==

== ENCOUNTER 2023-08-02 08:47 | Outpatient (AMB) | payer BC, SELFPAY ==
--- NOTE | 2023-08-02 08:50 | MHC.PC.OV ---
Vital Signs 08/02/23 08:54 Height 5 ft 2 in Weight 190 lb BMI 34.7 BP 120/80 Blood Pressure Location Rt brachial Position Sitting Pulse 78 Pulse Source Pulse Oximeter Pulse Oximetry (%) 98 Oxygen Delivery Method Room Air Intake Visit Reasons: F/U [place] X-Rays Intake Note: Patient here to follow up from [place] visit for consistent cough that has been present for about 8 months. Allergies codeine Allergy (Unknown, Verified 08/02/23 08:54) nausea and vomiting Medication List - Last Reconciled 08/02/23 by SRIKANTH Mcdowell albuterol sulfate 90 mcg/actuation 2 inhalations inhalation Q8H PRN levothyroxine 125 mcg PO DAILY 90 days medroxyprogesterone (Depo-Provera) 150 mg IM [id number] 90 days sertraline 150 mg (1.5 x 100 mg) PO DAILY 90 days Tobacco use date assessed: 08/02/23 Dental Screening Dental Screen Date: 08/02/23 Did you have a dental visit in the last 12 months?: No Did you have a dental problem in the last 6 months where you did not have access to dental care?: No Was dental information given to patient?: No HPI F/U [place] X-Rays HPI Details Pt was seen in the walk-in on 07/08 c/o cough, congestion, sinus pressure, ear pressure, and postnasal drip. She was negative for strep and COVID/flu/RSV. Chest XR was negative. Pt was given doxycycline, prednisone, and benzonatate. Pt reports ongoing cough for 8 months. She states that this is somewhat productive. ? asthma, pt has never been diagnosed with asthma. Denies wheezing. Will order PFT and allergy testing. Denies fever, chills, and shortness of breath. [facility] Medical History Right flank pain Recurrent major depressive disorder in partial remission Bilateral headaches Irregular menses Acquired hypothyroidism Surgical History History of tooth extraction Family History Father Cholesterol embolus syndrome Substance use disorder Mental health disorder Mother Multiple sclerosis Mental health disorder Brother Substance use disorder Paternal Grandfather Substance use disorder Social History Household Members: Spouse and Children Housing: House Alcohol intake: former Patient Tobacco Use Status: Former Tobacco user e-Cigarette/Vaping Use: Never Used Second Hand Smoke Exposure: No (sometimes ) service: No Current occupational status: employed 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 José Miguel Arnett, Jayla Lagos, Tang Luque and colleagues, with an educational estefania from [employer]. Review of Systems Const Reports as per HPI Physical exam (Primary Care) Vital Signs: Last Vital Signs Pulse 78 08/02/23 08:54 BP 120/80 08/02/23 08:54 Pulse Ox 98 08/02/23 08:54 Oxygen Delivery Method Room Air 08/02/23 08:54 BMI result Body Mass Index 34.7 Tobacco/Smoking Status: Tobacco use Status Tobacco use date assessed 08/02/23 08/02/23 08:57 Patient Tobacco Use Status Former Tobacco user 08/02/23 08:51 e-Cigarette/Vaping Use Never Used 08/02/23 08:51 Thrive Assessment: Date of Thrive Assessment Date Thrive assessed 05/25/22 08/02/23 08:51 Const General: cooperative Nutritional Appearance: obese Orientation/consciousness: patient oriented x3 Resp Effort & Inspection: normal respiratory effort Auscultation: clear to auscultation bilaterally Cardio Rate: regular rate Rhythm: regular rhythm Heart sounds: S1 normal heart sound present and S2 normal heart sound present Neuro General: patient oriented x3 Psych Appearance: grossly normal Mental Status: mental status grossly normal Speech and movement: Normal speech and movement present Affect: normal affect Attitude: cooperative Thought process: Normal thought process present Thought content: Normal thought content present Insight: Good insight present (Psych) Judgement: Good judgement present (Psych) Assessment and Plan Assessment & Plan (1) Chronic cough: Code(s): R05.3 - Chronic cough Plan: PFT and allergy testing ordered Plan The patient agreed to the use of a medical billing representative for this encounter. Scribed for SRIKANTH Espinal by Starr Wills medical billing representative, on 08/02/2023 at 09:10 EST. Orders: Orders Resp Allergy Profile Region I Today R05.3 - Chronic cough Immunoglobulins,IgG IgA IgM Today R05.3 - Chronic cough Immunoglobulin G Subclasses Today R05.3 - Chronic cough PFT pulmonary function test Today R05.3 - Chronic cough Rast Allergen Today R05.3 - Chronic cough Coding Level of Care Code Est Pt Level 3 (65454) Diagnoses Chronic cough R05.3
[2023-08-02 08:54] VITALS: BP 120/80; PULSE 78; O2SAT 98; BMI 34.7
== END 2023-08-02 11:54 | disposition home or self-care (01) ==
PROVIDERS: PCP Nurse Practitioner Family; Visit Provider Nurse Practitioner Family
DX: R05.3 Chronic cough (principal)
CPT/HCPCS: 99213

== ENCOUNTER 2023-08-02 09:37 | Outpatient (REF) | payer BC, SELFPAY ==
[2023-08-02 15:04] LABS: Free T4 (Free Thyroxine) 0.84 ng/dL (0.71-1.85)
[2023-08-03 14:28] LABS: Class Alternaria alternata 0; Class Aspergillus fumigatus 0; Class Bermuda Grass 0; Class Birch 0; Class Cat Dander 0; Class Cladosporium herbarum 0; Class Cockroach 0; Class Common Ragweed 0; Class Cottonwood 0; Class Derm. pterony 0; Class Dermatophagoides farinae 0; Class Dog Dander 0; Class Elm 0; Class Maple Box Elder 0; Class Mountain Cedar 0; Class Mouse Urine Protein 0; Class Mugwort 0; Class Oak 0; Class Penicillium crysogenum 0; Class Rough Pigweed 0; Class Sheep Sorrel 0; Class Sycamore 0; Class Timothy Grass 0; Class Walnut Tree 0; Class White Ash 0; Class White Mulberry 0; D001 IgE D pteronyssinus <0.10 kU/L; D002 - IgE D farinae <0.10 kU/L; E001 - IgE Cat Dander <0.10 kU/L; E005 - IgE Dog Dander <0.10 kU/L; E072-IgE Mouse Urine <0.10 kU/L; G002 IgE Bermuda Grass <0.10 kU/L; G006 - IgE Timothy Grass <0.10 kU/L; I006-IgE Cockroach, German <0.10 kU/L; Immunoglobulin E 23 kU/L (<OR=114); M001 IgE Penicillium chrysogen <0.10 kU/L; M002 - IgE Cladosporium herbar <0.10 kU/L; M003 - IgE Aspergillus fumigat <0.10 kU/L; M006 - IgE Alternaria alternat <0.10 kU/L; T001 IgE Maple/Box Elder <0.10 kU/L; T003 IgE Common Silver Birch <0.10 kU/L; T006 - IgE Cedar, Mountain <0.10 kU/L; T007 - IgE Oak, White <0.10 kU/L; T008 IgE Elm, American <0.10 kU/L; T010 - IgE Walnut <0.10 kU/L; T011 - IgE Maple Leaf Sycamore <0.10 kU/L; T014 - IgE Cottonwood <0.10 kU/L; T015 - IgE Ash, White <0.10 kU/L; T070 - IgE White Mulberry <0.10 kU/L; W001 - IgE Ragweed, Short <0.10 kU/L; W006 - IgE Mugwort <0.10 kU/L; W014 IgE Pigweed, Common <0.10 kU/L; W018 IgE Sheep Sorrel <0.10 kU/L
[2023-08-03 16:59] LABS: Immunoglobulin G Subclass 1 878 mg/dL (382-929); Immunoglobulin G Subclass 2 288 mg/dL (241-700); Immunoglobulin G Subclass 3 59 mg/dL (22-178); Immunoglobulin G Subclass 4 11.9 mg/dL (4-86); Immunoglobulin G Total 1328 mg/dL (600-1640)
[2023-08-03 17:19] LABS: IgA 221 mg/dL (47-310); IgG 1497 mg/dL (600-1640); IgM 78 mg/dL (50-300)
== END 2023-08-02 09:38 | disposition home or self-care (01) ==
LOC: HO.HMGCLDS 09:37
PROVIDERS: PCP Nurse Practitioner Family; Visit Provider Nurse Practitioner Family
DX: Z00.00 Encounter for general adult medical examination without abnormal findings (principal); R05.3 Chronic cough
CPT/HCPCS: 36415; 82784; 82785; 84439; 84443; 86003

== ENCOUNTER 2023-08-10 15:12 | Outpatient (AMB) | payer BC, SELFPAY ==
--- NOTE | 2023-08-10 15:21 | AM.OFFVISNUR ---
Intake Vital Signs 08/10/23 15:22 Height 5 ft 2 in Weight 86.183 kg BMI 34.7 Intake Visit Reasons: Depo Allergies codeine Allergy (Unknown, Verified 08/02/23 08:54) nausea and vomiting Nursing Note Lexie is here for her scheduled Depo_provera inj. She denies any problems or concerns. Follow up in 12 wks for next inj. Office Procedures Depo Questionnaire If YES to any of the following questions, please consult a provider. Date of last injection: 05/14/23 Date of last gynecology exam: 12/31/22 Menstrual pattern since last injection has been: Not Applicable Irregular bleeding?: No Breast lumps or other breast changes?: No Changes in weight or appetite?: No Depression or changes in mood?: No Abnormal hair growth or loss?: No Skin problems (rash, acne, discoloration)?: No Pain at the injection site?: No Headaches?: No Nervousness?: No Abdominal pain or cramping?: No Dizziness or nausea?: No Fatigue or weakness?: No Decrease in sexual drive?: No Chest pain or shortness of breath?: No Swelling in arms or legs?: No Any other problems or concerns?: none voiced Form completed by?: Ilsa tavares LPN Office Meds Depo-Provera 150 mg/mL intramuscular syringe Performing Provider: Yulia Landin CNM Performing Location: [facility] – [place] [facility] Administered by: Arleth Tavares LPN on 08/10/23 15:23 Dose Route Admin Location Dispensed Lot Number Expiration Date [facility] Order Processing Manager 150 mg IM left deltoid 1 mL [id number] 01/19/25 98649-960-68 [employer] Coding Level of Care Code Established Pt Est Pt Level 1 (35800) Patient Type Established History Problem Focused Exam Problem Focused Medical Decision Making Straight Forward Time Spent (min) 20 Assessment & Plan Assessment & Plan Orders: Orders AMB Medroxyprogesterone Injection Patient Supplied Today Z30.42 - Encounter for surveillance of injectable contraceptive Medications: New Depo-Provera (medroxyprogesterone) 150 mg IM ONCE 1 mL 0RF NS Z30.42 - Encounter for surveillance of injectable contraceptive
[2023-08-10 15:22] VITALS: BMI 34.7
== END 2023-08-10 15:19 | disposition home or self-care (01) ==
PROVIDERS: PCP Nurse Practitioner Family; Visit Provider Advanced Practice Midwife
DX: Z30.42 Encounter for surveillance of injectable contraceptive (principal)

== ENCOUNTER → 2023-08-10 15:12 | Outpatient (BNVA) | payer BC, SELFPAY | PROVIDERS: PCP Nurse Practitioner Family; Visit Provider Advanced Practice Midwife | DX: Z30.42 Encounter for surveillance of injectable contraceptive (principal) | CPT/HCPCS: 96372; 99211; J1050 ==

== ENCOUNTER 2023-10-06 08:10 | Outpatient (AMB) | payer OTHER, SELFPAY ==
[2023-10-06 08:14] VITALS: BP 118/76; PULSE 76; TEMP 36.8; O2SAT 98; BMI 35.1
--- NOTE | 2023-10-06 08:14 | AM.OFFWIN_ITS ---
Intake Vital Signs 10/06/23 08:14 Height 5 ft 2 in Weight 192 lb BMI 35.1 BP 118/76 Blood Pressure Location Lt brachial Position Sitting Pulse 76 Pulse Source Pulse Oximeter Temp 98.2 F Temp Source Oral Pulse Oximetry (%) 98 Intake Visit Reasons: EP Severe RT side breast pain Intake Note: pt is here for severe right side, around rib cage pain caused tears from pain since yesterday Patient Tobacco Use Status: Former Tobacco user Allergies codeine Allergy (Unknown, Verified 10/06/23 08:17) nausea and vomiting Do you need a note to return to daycare/school/sports/work: No HPI HPI Comments History of Present Illness Details She presents to office with R sided breast/rib cage pain She said onset pain last night R sided anterior rib Pain with deep inspiration, laugh, cough, She can touch it with some pain She has been evaluated for gallbladder and things before; last time she had this was after coughing Has had this pain in past Denies recent illness or trauma Denies travel, calf pain, leg edema or hx of DVT/blood clot. Started dull pain but now intermittent sharp pain 0/10 at rest but increase sharp pain wit h breathing Ibuprofen helped She denies nausea, vomiting, fever, chills, change in baseline of abdominal discomfort Denies SOB, palpitations She also mentions a small rash to anterior abdomen near waist line which she has had x 1 week. + itchy. No pain. Has used aquaphor PFSH Medical History Right flank pain Recurrent major depressive disorder in partial remission Bilateral headaches Irregular menses Acquired hypothyroidism Surgical History History of tooth extraction Family History Father Cholesterol embolus syndrome Substance use disorder Mental health disorder Mother Multiple sclerosis Mental health disorder Brother Substance use disorder Paternal Grandfather Substance use disorder Social History Household Members: Spouse and Children Housing: House Alcohol intake: former Patient Tobacco Use Status: Former Tobacco user e-Cigarette/Vaping Use: Never Used Second Hand Smoke Exposure: No (sometimes ) service: No Current occupational status: employed 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 Sexual orientation: Straight/Heterosexual Gender identity: Female Cognitive needs: No Hearing needs: No Vision needs: No Female Reproductive History Menstrual Age of Menarche: 10 Review of Systems Const Denies chills, Denies fatigue and Denies fever(s) ENT Denies nasal congestion and Denies sore throat Card Denies rapid heart rate, Denies leg edema, Denies dyspnea, Denies dyspnea on exertion and Reports other (R sided chest wall pain) Resp Denies chest congestion, Denies cough, Denies hemoptysis, Reports pain on inspiration, Reports pain with cough, Denies dyspnea and Denies dyspnea on exertion GI Denies abdominal pain, Denies nausea and Denies vomiting Denies other (denies nipple discharge or breast mass palptation R side) Musc Denies back pain (denies pain radiation into back with deep breathing) Skin/Breast Denies rash, Denies skin pain and Denies wounds Endo Denies fatigue Physical Exam Vital Signs: Last Vital Signs Temp 98.2 F 10/06/23 08:14 Pulse 76 10/06/23 08:14 BP 118/76 10/06/23 08:14 Pulse Ox 98 10/06/23 08:14 BMI result Body Mass Index 35.1 General: Non-toxic, NAD. Speaking full sentences. Skin: Warm dry throughout. no vesicular rashes or erythema/warmth to R side back, flank or R breast R anterior abdomen near waist line is linear erythematous macules which are non- tender to palpation Eye: EOMI HENT: Bilateral canals clear. TM non-erythematous, non-bulging. No TM perforation or hemotympanum noted. Respiratory: CTA bilaterally. No wheezes, rales or rhonchi. No accessory muscle use or stridor Cardiac: RRR. No murmur. + R sided chest wall near anterior rib approx 2cm inferior to R areola. Breast: No R sided breast masses or tenderness to palpation. MSK: Full ROM extremities. Neurology: A/O. No aphasia or facial droop. Gait without abnormality Psych: Good mood and affect Assessment & Plan Assessment & Plan (1) Chest wall pain: Code(s): R07.89 - Other chest pain Plan: Patient seen and evaluated. No sign of shingles or mastititis on exam; discussed skin changes to monitor for and call if they occur There was no breast masses noted and no indication for US. She has had mamograms in past and told + cysts No SOB, tachycardia or travel/PE/DVT hx. Discussed warning signs that inidcate ER evaluation and she is aware She will trial SalonPas and Ibuprofen Muscle relaxant at night' + lethargy, no alcohol or driving. Take at night Hydrocortisone on R anterior abdomen; avoid eyes and mouth F/U closely with PCP Patient gave verbal understanding and had no additional questions or concerns at time of discharge All questions answered Medications: New methocarbamol 500 mg PO TID 14 tabs 0RF hydrocortisone 1% (Cortisone (hydrocortisone)) 1 appl topical TID PRN 28.4 grams 0RF skin irritation Coding Level of Care Code Est Pt Level 3 (15347) Diagnoses Chest wall pain R07.89
== END 2023-10-06 08:40 | disposition home or self-care (01) ==
PROVIDERS: PCP Nurse Practitioner Family; Visit Provider Physician Assistant
DX: R07.89 Other chest pain (principal)
CPT/HCPCS: 99213

== ENCOUNTER 2023-10-25 09:06 | Outpatient (AMB) | payer OTHER, SELFPAY ==
--- NOTE | 2023-10-25 07:03 | MHC.PC.OV ---
Intake Visit Reasons: Gallbladder issues Allergies codeine Allergy (Unknown, Verified 10/06/23 08:17) nausea and vomiting Tobacco use date assessed: 08/02/23 Dental Screening Dental Screen Date: 08/02/23 HPI Gallbladder issues HPI Details Pt c/o RUQ abdominal pain. She reports that the pain is worse with eating ot laying on her right side for a long period of time. Pt also reports nausea and intermittent diarrhea. Pt had a HIDA scan in June of 2020, see results. She has seen GI (last seen in 2020) and general surgery in the past. She was started in creon which did not help. Will order US to reassess gallbladder. Will also refer to general surgery for a possible cholecystectomy. [facility] Medical History Right flank pain Recurrent major depressive disorder in partial remission Bilateral headaches Irregular menses Acquired hypothyroidism Surgical History History of tooth extraction Family History Father Cholesterol embolus syndrome Substance use disorder Mental health disorder Mother Multiple sclerosis Mental health disorder Brother Substance use disorder Paternal Grandfather Substance use disorder Social History Household Members: Spouse and Children Housing: House Alcohol intake: former Patient Tobacco Use Status: Former Tobacco user e-Cigarette/Vaping Use: Never Used Second Hand Smoke Exposure: No (sometimes ) service: No Current occupational status: employed 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 José Miguel Arnett, Jayla Lagos, Tang Luque and colleagues, with an educational estefania from [employer] Review of Systems Const Reports as per HPI Physical exam (Primary Care) Tobacco/Smoking Status: Tobacco use Status Tobacco use date assessed 08/02/23 10/25/23 07:07 Patient Tobacco Use Status Former Tobacco user 10/25/23 07:07 e-Cigarette/Vaping Use Never Used 10/25/23 07:07 Thrive Assessment: Date of Thrive Assessment Date Thrive assessed 05/25/22 10/25/23 07:07 Const General: cooperative Orientation/consciousness: patient oriented x3 Neuro General: patient oriented x3 Psych Appearance: grossly normal Mental Status: mental status grossly normal Speech and movement: Clear speech present Affect: normal affect Attitude: cooperative Thought process: Normal thought process present Thought content: Normal thought content present Insight: Good insight present (Psych) Judgement: Good judgement present (Psych) Telehealth Telehealth Telehealth Platform: [employer] Location of provider rendering services: practice address Location of patient: address on file Patient Identification confirmed using: Name, : Yes Telehealth method: video Patient verbally consented to treatment: Yes Patient verbally consented to billing insurance company: Yes Patient informed of any privacy concerns related to visit: Yes Minutes spent on Phone/Video with Pt.: 10 Assessment and Plan Assessment & Plan (1) RUQ pain: Code(s): R10.11 - Right upper quadrant pain Plan: US ordered, referred to general surgery Plan The patient agreed to the use of a durable medical equipment repairer for this encounter. Scribed for SRIKANTH Espinal by Starr Wills durable medical equipment repairer, on 10/25/2023 at 07:00 EST. Orders: Orders US abdomen limited Today R10.11 - Right upper quadrant pain Referrals General Surgery Referral R10.11 - Right upper quadrant pain Coding Level of Care Code Tele Est Pt Level 3 (06840) Diagnoses RUQ pain R10.11
== END 2023-10-25 09:32 | disposition home or self-care (01) ==
LOC: HO.HMGC 09:06
PROVIDERS: PCP Nurse Practitioner Family; Visit Provider Nurse Practitioner Family
DX: R10.11 Right upper quadrant pain (principal)
CPT/HCPCS: 99213

== ENCOUNTER 2023-10-26 12:20 | Outpatient (AMB) | payer BC, SELFPAY ==
--- NOTE | 2023-10-26 13:15 | AM.OFFVISNUR ---
Vital Signs 10/26/23 13:18 Height 5 ft 2 in Weight 88.054 kg BMI 35.5 Intake Visit Reasons: Depo Allergies codeine Allergy (Unknown, Verified 10/06/23 08:17) nausea and vomiting Nursing Note Lexie is here today for her scheduled Depo-Provera inj. She continues to have headaches, but this is not a new occurrence. Pt has PCP appt in 2 wks., and will discuss at that time. Pt due for her ag in December and it is scheduled. Follow up in 12 wks for inj. Office Procedures Depo Questionnaire If YES to any of the following questions, please consult a provider. Date of last injection: 08/10/23 Date of last gynecology exam: 12/31/22 Menstrual pattern since last injection has been: Not Applicable Irregular bleeding?: No Breast lumps or other breast changes?: No Changes in weight or appetite?: No Depression or changes in mood?: No Abnormal hair growth or loss?: No Skin problems (rash, acne, discoloration)?: No Pain at the injection site?: No Headaches?: Yes (but has hx of headaches, not new symptom) Nervousness?: No Abdominal pain or cramping?: No Dizziness or nausea?: No Fatigue or weakness?: No Decrease in sexual drive?: No Chest pain or shortness of breath?: No Swelling in arms or legs?: No Form completed by?: Ilsa Hancock LPN Office Meds Depo-Provera 150 mg/mL intramuscular syringe Performing Provider: Yulia Landin CNM [place] [facility] [place] [facility] Administered by: Arleth Hancock LPN on 10/26/23 13:18 Dose Route Admin Location Dispensed Lot Number Expiration Date [facility] Substance Abuse Specialist 150 mg IM lt deltoid 1 mL [id number] 01/19/25 95686-385-04 [employer] Assessment & Plan Assessment & Plan Orders: Orders AMB Medroxyprogesterone Injection Patient Supplied Today Z30.42 - Encounter for surveillance of injectable contraceptive Medications: New Depo-Provera (medroxyprogesterone) 150 mg IM ONCE 1 mL 0RF NS Z30.42 - Encounter for surveillance of injectable contraceptive
[2023-10-26 13:18] VITALS: BMI 35.5
== END 2023-10-26 12:55 | disposition home or self-care (01) ==
PROVIDERS: PCP Nurse Practitioner Family; Visit Provider Advanced Practice Midwife
DX: Z30.42 Encounter for surveillance of injectable contraceptive (principal)

== ENCOUNTER → 2023-10-26 12:20 | Outpatient (BNVA) | payer BC, SELFPAY | PROVIDERS: PCP Nurse Practitioner Family; Visit Provider Advanced Practice Midwife | DX: Z30.42 Encounter for surveillance of injectable contraceptive (principal) | CPT/HCPCS: 96372; 99211; J1050 ==

== ENCOUNTER 2023-11-04 13:37 | Outpatient (AMB) | payer OTHER, SELFPAY ==
[2023-11-04 13:42] VITALS: BMI 36.0
--- NOTE | 2023-11-04 13:42 | A.OFFVIS_ITS ---
Vital Signs 11/04/23 13:42 Height 5 ft 2 in Weight 197 lb BMI 36.0 Intake Visit Reasons: Chronic cholecystitis Intake Note: This patient presents for Chronic cholecystitis. Pt c/o; reports feels nauseous, reports no vomiting, reports last gb attack lasted about 3 days and she had RUQ pain which radiated towards back and her shoulder, reports no loss of appetite. Computer Programmer Analyst Required: No Accompanied by: Self / Same As Patient Allergies codeine Allergy (Unknown, Verified 11/04/23 13:45) nausea and vomiting Medication List - Last Reconciled 11/04/23 by Henrique Dominguez MD albuterol sulfate 90 mcg/actuation 2 inhalations inhalation Q8H PRN hydrocortisone 1% (Cortisone (hydrocortisone)) 1 appl topical TID PRN levothyroxine 137 mcg PO DAILY 90 days medroxyprogesterone (Depo-Provera) 150 mg IM [id number] 90 days methocarbamol 500 mg PO TID sertraline 150 mg (1.5 x 100 mg) PO DAILY 90 days HPI HPI Chronic cholecystitis: Details: 33-year-old female here for right upper quadrant pain. She actually well known to me. I had seen her before his her ultrasound did not reveal gallstones at that time although it seemed that he had sludge. She says that she has had no attacks the past the years. However last October 08, 2023, she had what she described as severe episode of pain on the right upper quadrant. She says that she was not tender on the abdomen but that she only had pain which radiated to the shoulder This resolved after several hours She says she has this did not seem to be associated with meals. [facility] Medical History Right flank pain Recurrent major depressive disorder in partial remission Bilateral headaches Irregular menses Acquired hypothyroidism Surgical History History of tooth extraction Family History Father Cholesterol embolus syndrome Substance use disorder Mental health disorder Mother Multiple sclerosis Mental health disorder Brother Substance use disorder Paternal Grandfather Substance use disorder Social History Household Members: Spouse and Children Housing: House Alcohol intake: former Patient Tobacco Use Status: Former Tobacco user e-Cigarette/Vaping Use: Never Used Second Hand Smoke Exposure: No (sometimes ) service: No Current occupational status: employed 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 Sexual orientation: Straight/Heterosexual Gender identity: Female Cognitive needs: No Hearing needs: No Vision needs: No Female Reproductive History Menstrual Age of Menarche: 10 Review of Systems Const Denies chills and Denies fever(s) Card Denies chest pain, Denies dyspnea and Denies dyspnea on exertion Resp Denies cough, Denies dyspnea and Denies dyspnea on exertion GI Denies hematochezia and Denies change in bowel habits Denies hematuria Musc Denies back pain and Denies limited range of motion Neuro Denies focal weakness and Denies convulsions Psych Denies depression and Denies mood swings Physical Exam Vital Signs: BMI result Body Mass Index 36.0 Const General: comfortable and no acute distress Orientation/consciousness: patient oriented x3 Neck Neck: Yes no lymphadenopathy Resp Auscultation: clear to auscultation bilaterally Cardio Rhythm: regular rhythm GI Palpation (GI): Soft to palpation, nontender and no guarding Neuro General: patient oriented x3 Assessment & Plan Assessment & Plan (1) RUQ pain: Code(s): R10.11 - Right upper quadrant pain Category: Medical Plan: She has had episodes of right upper quadrant pain which she described as severe last month. She is waiting for an ultrasound to be done for this to rule out gallbladder disease I told her that I will see her in the office after her ultrasound so we can review the findings. We can decide on the next step in her care thereafter. She seems to understand the plan well and is comfortable with this. Coding Level of Care Code New Pt Level 3 (91143) Diagnoses RUQ pain R10.11
== END 2023-11-04 14:19 | disposition home or self-care (01) ==
PROVIDERS: PCP Nurse Practitioner Family; Visit Provider Surgery
DX: R10.11 Right upper quadrant pain (principal)
CPT/HCPCS: 99203

== ENCOUNTER → 2023-11-04 13:37 | Outpatient (BNVA) | payer OTHER, SELFPAY | PROVIDERS: PCP Nurse Practitioner Family; Visit Provider Surgery ==

== ENCOUNTER 2023-11-05 08:22 | Outpatient (REF) | payer OTHER, SELFPAY ==
--- NOTE | ~2023-11-05 | US_ITS ---
EXAMINATION: US ABDOMEN LIMITED CLINICAL INFORMATION: Right upper quadrant pain. Check gallbladder. COMPARISON: Ultrasound abdomen limited 07/24/2020. CT abdomen and pelvis 06/15/2020. TECHNIQUE: Real-time imaging of the right upper quadrant abdominal viscera. FINDINGS: Partially visualized pancreas with limits. Pancreatic head and distal body and tail are not seen. Liver is overall within normal limits for echogenicity. No lesion or ductal dilatation Gallbladder is within normal limits. No stone. No edema. Common duct measures 4 mm. The right kidney is measuring 4.5 cm. No hydronephrosis or stone. Normal appearing. US/US abdomen limited IMPRESSION: No evidence for cholelithiasis or cholecystitis. There is no free fluid seen. Electronically signed by: Jean Pierre Black MD 12/02/2023 04:51 PM EDT
== END 2023-11-05 08:23 | disposition home or self-care (01) ==
LOC: HO.HMGCX 08:22
PROVIDERS: PCP Nurse Practitioner Family; Visit Provider Nurse Practitioner Family
DX: R10.11 Right upper quadrant pain (principal)
CPT/HCPCS: 76705

== ENCOUNTER 2023-11-10 08:04 | Outpatient (AMB) | payer BC, SELFPAY ==
[2023-11-10 08:06] VITALS: BP 118/74; PULSE 75; O2SAT 98; BMI 35.9
--- NOTE | 2023-11-10 08:06 | A.OFFPC_ITS ---
Vital Signs 11/10/23 08:06 Height 5 ft 2 in Weight 196 lb 6 oz BMI 35.9 BP 118/74 Blood Pressure Location Rt brachial Position Sitting Pulse 75 Pulse Source Pulse Oximeter Pulse Oximetry (%) 98 Oxygen Delivery Method Room Air Intake Visit Reasons: annual PE Intake Note: pt is here for annual exam, pap due in 01/12 Optician Manager Required: No Accompanied by: Self / Same As Patient Allergies codeine Allergy (Unknown, Verified 11/10/23 08:22) nausea and vomiting Medication List - Last Reconciled 11/10/23 by SRIKANTH Mcdowell albuterol sulfate 90 mcg/actuation 2 inhalations inhalation Q8H PRN levothyroxine 137 mcg PO DAILY 90 days medroxyprogesterone (Depo-Provera) 150 mg IM [id number] 90 days sertraline 150 mg (1.5 x 100 mg) PO DAILY 90 days Tobacco use date assessed: 08/02/23 Dental Screening Dental Screen Date: 08/02/23 HPI annual PE HPI Details Pt is here for a PE. Will order labs. Pt c/o right hip pain. She reports intermittent popping and clicking. Will order XR. Pt is a vegetarian, will check B12 level. [facility] Medical History Right flank pain Recurrent major depressive disorder in partial remission Bilateral headaches Irregular menses Acquired hypothyroidism Surgical History History of tooth extraction Family History Father Cholesterol embolus syndrome Substance use disorder Mental health disorder Mother Multiple sclerosis Mental health disorder Brother Substance use disorder Paternal Grandfather Substance use disorder Social History Household Members: Spouse and Children Housing: House Alcohol intake: former Patient Tobacco Use Status: Former Tobacco user e-Cigarette/Vaping Use: Never Used Second Hand Smoke Exposure: No (sometimes ) service: No Current occupational status: employed 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 1. Little interest or pleasure in doing things: several days 2. Feeling down, depressed, or hopeless: several days 3. Trouble falling or staying asleep, or sleeping too much: several days 4. Feeling tired or having little energy: several days 5. Poor appetite or overeating: more than half the days 6. Feeling bad about yourself - or that you are a failure or have let yourself or your family down: several days 7. Trouble concentrating on things, such as reading the newspaper or watching television: several days 8. Moving or speaking so slowly that other people could have noticed. Or the opposite - being so fidgety or restless that you have been moving around a lot more than usual: not at all 9. Thoughts that you would be better off or of hurting yourself in some way: more than half the days Total score: 10 Depression Screening Interpretation: Positive (has a therapist, denies any SI or HI) Depression Screening Follow-up: Existing condition and In treatment Depression Screening Done: Yes 33301 - PHQ-9 Billing: Yes Source: Developed by Drs. José Miguel Arnett, Jayla Lagos, Tang Luque and colleagues, with an educational estefania from [employer]. Thrive Questionnaire Date Thrive assessed: 11/10/23 I am a: Patient What is your living situation today?: I have a steady place to live Within the past 12 months, did the food you bought not last and you didn't have the money to get more?: Sometimes True Within the past 12 months, did you worry whether your food would run out before you got money to buy more?: Sometimes True Do you have trouble paying for medicines?: I choose not to answer this question Do you have trouble getting transportation to medical appointments?: No Do you have trouble paying your heating and electricity bill?: No Do you have trouble taking care of your child, family member or friend?: No Do you have trouble with day-to-day activities such as bathing, preparing meals, shopping, managing finances, etc.?: I choose not to answer this question Are you currently unemployed and looking for a job?: No Are you interested in more education?: No Please select the resources that you would like help with: None Currently or been in a relationship where the following occur: I choose not to answer THRIVE Score: 2 AUDIT C Alcohol Use Questionnaire (AUDIT-C) 1. How often do you have a drink containing alcohol?: Monthly or less 2. How many drinks containing alcohol do you have on a typical day when you are drinking?: 1 or 2 3. How often do you have six or more drinks on one occasion?: Never Total Score: 1 Score Reviewed/Action Taken: Yes AISHA-7 AMB Questionnaire AISHA-7 Date AISHA - 7 assessed: 11/10/23 Feeling nervous, anxious, or on edge: 3 = Nearly every day Not being able to stop or control worryin = More than half the days Worrying too much about different things: 3 = Nearly every day Trouble relaxin = More than half the days Being so restless that it is hard to sit still: 1 = Several days Becoming easily annoyed or irritable: 3 = Nearly every day Feeling afraid as if something awful might happen: 3 = Nearly every day Total AISHA-7 score (0-4 normal; 5-9 mild; 10-14 moderate; 15-21 severe): 17 Source: Developed by Drs. José Miguel Arnett, Jayla Lagos, Tang Luque and colleagues, with an educational estefania from [employer]. AISHA-7 Assessment Billing AISHA-7 Assessment Tool: AISHA-7 Assessment 94138 Review of Systems Const Denies chills and Denies fever(s) Eyes Denies blurry vision ENT Denies vertigo, Denies dizziness and Denies sore throat Card Denies chest pain at rest, Denies chest pain with activity, Denies diaphoresis, Denies dyspnea and Denies dyspnea on exertion Resp Denies cough, Denies dyspnea, Denies dyspnea on exertion and Denies wheezing GI Denies abdominal pain, Denies melena, Denies hematochezia, Denies constipation, Denies diarrhea and Denies loose stools Denies hematuria Musc Denies numbness and Denies tingling Skin/Breast Denies lesions Neuro Denies vertigo, Denies dizziness, Denies numbness and Denies tingling Psych Denies anxiety, Denies depression, Denies homicidal ideation, Denies suicidal ideation and Denies other (substance abuse) Aller/Immun Denies wheezing Physical exam (Primary Care) Vital Signs: Last Vital Signs Pulse 75 11/10/23 08:06 BP 118/74 11/10/23 08:06 Pulse Ox 98 11/10/23 08:06 Oxygen Delivery Method Room Air 11/10/23 08:06 BMI result Body Mass Index 35.9 Tobacco/Smoking Status: Tobacco use Status Tobacco use date assessed 08/02/23 11/10/23 08:09 Patient Tobacco Use Status Former Tobacco user 11/10/23 08:09 e-Cigarette/Vaping Use Never Used 11/10/23 08:09 PHQ-9: PHQ-9 Score PHQ-9: Total score 10 11/10/23 08:09 Depression Screening Interpretation: Positive (has a therapist, denies any SI or HI) Depression Screening Follow-up: Existing condition and In treatment Thrive Assessment: Date of Thrive Assessment Date Thrive assessed 11/10/23 11/10/23 08:09 Currently or been in a relationship where the following occur: I choose not to a nswer Const General: cooperative Nutritional Appearance: well nourished Orientation/consciousness: patient oriented x3 HENMT Head: Yes normal to inspection, Yes normocephalic and Yes atraumatic Ears: TM's normal bilaterally Eyes General: appearance normal, both eyes and all related structures Alignment and Position: alignment normal and position normal Neck Neck: Yes normal visual inspection and Yes no lymphadenopathy Thyroid: Thyroid normal Resp Effort & Inspection: normal respiratory effort Auscultation: clear to auscultation bilaterally Cardio Rate: regular rate Rhythm: regular rhythm Heart sounds: S1 normal heart sound present, S2 normal heart sound present and no murmurs GI Palpation (GI): Soft to palpation and nontender Auscultation: normal bowel sounds Skin Rashes: no rashes Neuro General: patient oriented x3, moves all extremities, no focal motor deficits and deep tendon reflexes 2+ bilaterally Romberg Test: Negative Extrem Other: right hip: + fabers, no popping or clicking, able to perform leg lifts and knee to chest raises without difficulty Psych Appearance: grossly normal Mental Status: mental status grossly normal Speech and movement: Normal speech and movement present Affect: normal affect Attitude: cooperative Thought process: Normal thought process present Thought content: Normal thought content present Insight: Good insight present (Psych) Judgement: Good judgement present (Psych) Assessment and Plan Assessment & Plan (1) Encounter for routine adult physical exam with abnormal findings: Code(s): Z00.01 - Encounter for general adult medical examination with abnormal findings Plan: Labs ordered (2) Right hip pain: Code(s): M25.551 - Pain in right hip Plan: XR ordered (3) Vegetarian: Code(s): Z78.9 - Other specified health status Plan: will check b12 levels Plan The patient agreed to the use of a certified medical technician assistant for this encounter. Scribed for PEDRO Espinal-BC by Starr Wills certified medical technician assistant, on 11/10/2023 at 08:20 EST. Orders: Orders UA CC w/rflx Micro + Cult Today Z00.01 - Encounter for general adult medical examination with abnormal findings Lipid Panel Today Z00.01 - Encounter for general adult medical examination with abnormal findings Vitamin B12 and Folate Today Z78.9 - Other specified health status XR hip RT min 2V Today M25.551 - Pain in right hip Complete Blood Count Auto Diff Today Z00.01 - Encounter for general adult medical examination with abnormal findings Comprehensive Sears. Panel Fast Today Z00.01 - Encounter for general adult medical examination with abnormal findings TSH reflex Free T4 Today Z00.01 - Encounter for general adult medical examination with abnormal findings Coding Level of Care Code Est Pt Prev Care 18-39y(55170) Diagnoses Encounter for routine adult physical exam with abnormal findings Z00.01 Right hip pain M25.551 Vegetarian Z78.9 Additional Codes AISHA-7 Assessment Billing - AISHA-7 Assessment Tool: AISHA-7 Assessment [id number] ([id number])
== END 2023-11-10 08:38 | disposition home or self-care (01) ==
PROVIDERS: PCP Nurse Practitioner Family; Visit Provider Nurse Practitioner Family
DX: Z00.00 Encounter for general adult medical examination without abnormal findings (principal); M25.551 Pain in right hip; Z78.9 Other specified health status
CPT/HCPCS: 99213; 99395

== ENCOUNTER 2023-11-10 08:38 | Outpatient (REF) | payer OTHER, SELFPAY ==
--- NOTE | ~2023-11-10 | XR_ITS ---
EXAMINATION: XR HIP, RIGHT CLINICAL INFORMATION: Pain. COMPARISON: CT abdomen and pelvis dated 06/15/2020. TECHNIQUE: AP and frog-leg lateral views of the right hip. FINDINGS: No fracture. Alignment is anatomic. Hip joint space is maintained. Soft tissues are unremarkable. XR/XR hip RT min 2V IMPRESSION: Normal right hip. Electronically signed by: Link Almanza MD 12/02/2023 03:35 PM EDT
[2023-11-10 10:33] LABS: Appearance Urine Clear; Color Urine Yellow; Glucose Urine UA Negative (Negative); Leukocyte Esterase Urine Trace (Negative); Nitrite Urine Negative (Negative); PH 6.5 (5.0-9.0); Specific Gravity - Urine 1.025 (1.005-1.025); UMIC TRIGGER UACC YES; Urine Blood Negative (Negative); Urine Ketones Negative (Negative); Urine Protein Negative (Neg-Trace)
[2023-11-10 10:37] LABS: Bacteria Urine 1+ (None Seen); Hyaline Casts Urine 0-2 /LPF (0-2); RBC Urine 0-2 /HPF (0-2); WBC Urine 0-5 /HPF (0-5)
[2023-11-10 11:29] LABS: MANUAL DIFF FLAG NO
[2023-11-10 11:34] LABS: Basophils Absolute Auto 0.1 X10*3/uL (0.0-0.2); Basophils Percent Auto 1.5 % (0-2); Eosinophils Absolute Auto 0.1 X10*3/uL (0.0-0.4); Eosinophils Percent Auto 2.1 % (0-4); Hematocrit 42.9 % (37.0-47.0); Hemoglobin 14.3 g/dl (12.0-16.0); Imm Gran Abs Auto 0.03 X10*3/uL (0.00-0.03); Imm Gran Pct Auto 0.5 % (0.0-0.4); Lymphocytes Absolute Auto 1.8 X10*3/uL (1.2-4.9); Lymphocytes Percent Auto 28.5 % (20-40); Mean Corpuscular HGB Conc 33.3 g/dl (31.0-35.0); Mean Corpuscular Volume 90.1 fL (80.0-98.0); Mean Platelet Volume 10.2 fL (9.4-12.3); Monocytes Absolute Auto 0.4 X10*3/uL (0.1-1.2); Monocytes Percent Auto 5.8 % (2-11); Neutrophils Absolute Auto 3.8 x10*3/uL (2.0-8.3); Neutrophils Percent Auto 61.6 % (45-73); Platelet Count 386 X10*3/uL (160-400); Red Blood Count 4.76 X10*6/uL (4.20-5.50); Red Cell Distribution Width 12.9 % (11.0-16.0); White Blood Count 6.2 X10*3/uL (4.8-10.8)
[2023-11-10 11:37] LABS: Alanine Aminotransferase 12 U/L (0-31); Albumin Level 4.5 g/dL (3.5-5.0); Alkaline Phosphatase 74 U/L (39-117); Anion Gap 13 (12-20); Aspartate Amino Transferase 16 U/L (5-31); Bilirubin Total 0.7 mg/dL (0.0-1.0); Blood Urea Nitrogen 12 mg/dL (9-16); Carbon Dioxide 23 mmol/L (22-29); Chloride 110 mmol/L (96-108); Cholesterol 179 mg/dL (<200); Estimated Glomerular Filt Rate > 60; Glucose Fasting 96 mg/dL (60-99); HDL Cholesterol 42 mg/dL (>40); LDL Cholesterol Calculated 117 mg/dL (<100); Potassium 4.2 mmol/L (3.3-5.1); Sodium 142 mmol/L (135-145); Triglycerides 100 mg/dL (<150)
[2023-11-10 11:52] LABS: TSH reflex Free T4 3.65 uIU/mL (0.32-4.0)
[2023-11-10 12:05] LABS: Folate 14.1 ng/mL (> or = 4.0); Vitamin B12 204 pg/mL (200-900)
== END 2023-11-10 08:39 | disposition home or self-care (01) ==
LOC: HO.HMGCX 08:38
PROVIDERS: PCP Nurse Practitioner Family; Visit Provider Nurse Practitioner Family
DX: M25.551 Pain in right hip (principal); Z78.9 Other specified health status; Z13.6 Encounter for screening for cardiovascular disorders; Z00.01 Encounter for general adult medical examination with abnormal findings
CPT/HCPCS: 36415; 73502; 80053; 80061; 81001; 82607; 82746; 84443; 85025

== ENCOUNTER 2024-02-18 09:06 | Outpatient (AMB) | payer OTHER, SELFPAY ==
[2024-02-18 09:08] VITALS: BP 120/82; PULSE 86; TEMP 36.6; O2SAT 98; BMI 36.0
--- NOTE | 2024-02-18 09:08 | MHC.OFFWIV ---
Intake Vital Signs 02/18/24 09:08 Height 5 ft 2 in Weight 197 lb BMI 36.0 BP 120/82 Blood Pressure Location Rt brachial Position Sitting Pulse 86 Pulse Source Pulse Oximeter Temp 97.8 F Temp Source Oral Pulse Oximetry (%) 98 Oxygen Delivery Method Room Air Intake Visit Reasons: EP Cough Intake Note: Patient here for cough that has been present for about 6 weeks and SOB. Patient Tobacco Use Status: Former Tobacco user Allergies codeine Allergy (Unknown, Verified 02/18/24 09:27) nausea and vomiting Medication List - Last Reconciled 02/18/24 by Basilio Reyes MD albuterol sulfate 90 mcg/actuation 2 inhalations inhalation Q8H PRN levothyroxine 137 mcg PO DAILY 90 days medroxyprogesterone (Depo-Provera) 150 mg IM [id number] 90 days sertraline 150 mg (1.5 x 100 mg) PO DAILY 90 days Do you need a note to return to daycare/school/sports/work: No HPI EP Cough HPI Details Patient presents for a sick visit. Reporting symptoms of sinus congestion, sore throat and difficulty swallowing. Low-grade fever. No family member is sick. No recent travel. Patient reports symptoms of malaise and fatigue. [facility] Medical History Right flank pain Recurrent major depressive disorder in partial remission Bilateral headaches Irregular menses Acquired hypothyroidism Surgical History History of tooth extraction Family History Father Cholesterol embolus syndrome Substance use disorder Mental health disorder Mother Multiple sclerosis Mental health disorder Brother Substance use disorder Paternal Grandfather Substance use disorder Social History Household Members: Spouse and Children Housing: House Alcohol intake: former Patient Tobacco Use Status: Former Tobacco user e-Cigarette/Vaping Use: Never Used Second Hand Smoke Exposure: No (sometimes ) service: No Current occupational status: employed 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 Sexual orientation: Straight/Heterosexual Gender identity: Female Cognitive needs: No Hearing needs: No Vision needs: No Female Reproductive History Menstrual Age of Menarche: 10 Physical Exam Vital Signs: Last Vital Signs Temp 97.8 F 02/18/24 09:08 Pulse 86 02/18/24 09:08 BP 120/82 02/18/24 09:08 Pulse Ox 98 02/18/24 09:08 Oxygen Delivery Method Room Air 02/18/24 09:08 BMI result Body Mass Index 36.0 Const General: cooperative and healthy appearing Nutritional Appearance: well nourished Orientation/consciousness: patient oriented x3 Limitations: no limitations HEENT Head: Yes normal to inspection Eyes General: appearance normal, both eyes and all related structures Neck Neck: Yes normal visual inspection Chest Chest palpation & inspection: normal palpation of entire chest wall Resp Effort & Inspection: normal respiratory effort Neuro General: patient oriented x3 Assessment & Plan Assessment & Plan (1) Upper respiratory tract infection: Code(s): J06.9 - Acute upper respiratory infection, unspecified Plan: Antibiotics ordered. Increase fluid intake. Tylenol for aches and pains. If symptoms worsen, follow-up here for a recheck. Coding Level of Care Code Est Pt Level 3 (82607) Diagnoses Upper respiratory tract infection J06.9
== END 2024-02-18 09:48 | disposition home or self-care (01) ==
PROVIDERS: PCP Nurse Practitioner Family; Visit Provider Internal Medicine
DX: J06.9 Acute upper respiratory infection, unspecified (principal)

== ENCOUNTER → 2024-02-18 09:06 | Outpatient (BNVA) | payer OTHER, SELFPAY | PROVIDERS: PCP Nurse Practitioner Family; Visit Provider Internal Medicine ==

== ENCOUNTER 2024-03-13 08:00 | Outpatient (AMB) | payer OTHER, SELFPAY ==
[2024-03-13 08:10] VITALS: BP 110/78; PULSE 90; TEMP 36.8; O2SAT 98
--- NOTE | 2024-03-13 08:10 | MHC.OFFWIV ---
Intake Vital Signs 03/13/24 08:10 Weight 195 lb 8 oz BP 110/78 Blood Pressure Location Lt brachial Position Sitting Pulse 90 Pulse Source Pulse Oximeter Temp 98.2 F Temp Source Oral Pulse Oximetry (%) 98 Oxygen Delivery Method Room Air Intake Visit Reasons: EP-cough Intake Note: Patient here for cough that has been present since december and was put on antibiotics a couple of weeks ago and does not feel like she has improved. Patient Tobacco Use Status: Former Tobacco user Allergies codeine Allergy (Unknown, Verified 03/13/24 08:17) nausea and vomiting Do you need a note to return to daycare/school/sports/work: No HPI HPI Comments History of Present Illness Details The patient is a 33-year-old female presenting with a persistent cough and suspected secondary bacterial infection. The patient reported an initial diagnosis of COVID-19 approximately three weeks ago, for which she tested positive after completing a course of Azithromycin (Z-Edmond) due to suspected bacterial infection from December. The cough has persisted since the COVID-19 infection, with varying degrees of severity. The patient initially did not experience fever throughout the duration and described associated symptoms including lightheadedness and exacerbation of migraines. The patient mentioned feeling shortness of breath intermittently, but no significant wheezing was reported. Ear pressure was noted, but without significant pain. Previous management included the Z-Edmond administered towards the end of November, but efficacy in resolving symptoms was diminished due to concurrent contraction of COVID-19. The patient expressed concern and hesitation about antibiotic use and reported taking a medication to aid sleep with significant improvement in rest. Denies fevers. Physical Exam General: Cooperative, healthy appearing, comfortable and no acute distress Orientation/consciousness: Patient oriented x3 Limitations: No limitations Head: Normal to inspection Ears: Hearing grossly normal bilaterally, external ears normal and TM's normal bilaterally, a little pressure but not painful Nose: Normal external nose present, Normal nares present and No nasal discharge present Face and sinus: Normal facial exam and Yes sinuses nontender Mouth: Normal oral and palatal mucosa present and moist mucous membranes Throat: Yes tonsils normal, Yes uvula midline. Posterior oropharynx erythema Eyes: Appearance normal, both eyes and all related structures Neck: Normal visual inspection Respiratory: Clear to auscultation bilaterally. Normal respiratory effort, able to speak in complete sentences, Actively coughing, no respiratory distress, not tachypneic, no tripod positioning and no use of accessory muscles, occasional shortness of breath, no wheezing Cardiovascular: Regular rate and rhythm. Normal S1 and S2 Skin: No rashes or lesions noted Neuro: Patient oriented x3 Extremities: Normal to inspection and Yes no clubbing, cyanosis or edema PFSH Medical History Right flank pain Recurrent major depressive disorder in partial remission Bilateral headaches Irregular menses Acquired hypothyroidism Surgical History History of tooth extraction Family History Father Cholesterol embolus syndrome Substance use disorder Mental health disorder Mother Multiple sclerosis Mental health disorder Brother Substance use disorder Paternal Grandfather Substance use disorder Social History Household Members: Spouse and Children Housing: House Alcohol intake: former Patient Tobacco Use Status: Former Tobacco user e-Cigarette/Vaping Use: Never Used Second Hand Smoke Exposure: No (sometimes ) service: No Current occupational status: employed 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 Sexual orientation: Straight/Heterosexual Gender identity: Female Cognitive needs: No Hearing needs: No Vision needs: No Female Reproductive History Menstrual Age of Menarche: 10 Review of Systems Const All systems reviewed & are unremarkable except as noted in HPI and below Physical Exam Vital Signs: Last Vital Signs Temp 98.2 F 03/13/24 08:10 Pulse 90 03/13/24 08:10 BP 110/78 03/13/24 08:10 Pulse Ox 98 03/13/24 08:10 Oxygen Delivery Method Room Air 03/13/24 08:10 Assessment & Plan Assessment & Plan (1) URI, acute: Code(s): J06.9 - Acute upper respiratory infection, unspecified Plan: - Sent Augmentin to pharmacy as was just on zpak, then had covid now lingering cough. - No requirement for inhalers currently as respiratory examination did not reveal significant obstruction or ongoing wheezing and she just got a refill - Obtain patient consent for prescribed medications and reaffirm safety for use with current symptoms. - Advise monitoring symptoms and ensure to seek further medical evaluation if symptoms persist beyond the treatment course or if new symptoms develop. Patient was informed and verbally consented to the use of an ambient scribe for clinic note documentation during this visit Medications: New amoxicillin-pot clavulanate 875-125 mg 1 tab PO Q12H 14 tabs 0RF Coding Level of Care Code Est Pt Level 3 (63968) Diagnoses URI, acute J06.9
== END 2024-03-13 08:48 | disposition home or self-care (01) ==
PROVIDERS: PCP Nurse Practitioner Family; Visit Provider Physician Assistant
DX: J06.9 Acute upper respiratory infection, unspecified (principal)

== ENCOUNTER 2024-04-27 08:35 | Outpatient (REF) | payer OTHER, SELFPAY ==
--- NOTE | 2024-04-27 08:47 | PFT_ITS ---
Flows: FEV1: 107 % of predicted at 3.11 L FVC: 108 % of predicted at 3.77 L FEV1/FVC: 83 % Bronchodilator response: Absent Volumes: Total lung capacity: 94 % of predicted at 4.59 L Residual volume: 68 % of predicted at 0.79 L Slow vital capacity: 102 % of predicted at 3.80 L Expiratory reserve volume: 100 % of predicted at 1.16 L Diffusion capacity: Normal Impression: No obstructive or restrictive ventilatory defect. No bronchodilator response. Normal pulmonary function test. MTDD
== END 2024-04-27 08:36 | disposition home or self-care (01) ==
LOC: HO.RESP 08:35
PROVIDERS: PCP Nurse Practitioner Family; Visit Provider Nurse Practitioner Family
DX: R05.3 Chronic cough (principal)
CPT/HCPCS: 94010; 94640; 94727; 94729

== ENCOUNTER → 2024-04-27 08:47 | Outpatient (BNV) | payer OTHER, SELFPAY | PROVIDERS: PCP Nurse Practitioner Family; Visit Provider Internal Medicine Pulmonary Disease | DX: R05.3 Chronic cough (principal) | CPT/HCPCS: 94060; 94727; 94729 ==

== ENCOUNTER 2024-05-10 13:59 | Outpatient (REF) | payer OTHER, SELFPAY ==
--- NOTE | ~2024-05-10 | CT_ITS ---
EXAMINATION: CT CHEST WITHOUT CONTRAST CLINICAL INFORMATION: Chronic cough. COMPARISON: CT dated January 26, 2022. TECHNIQUE: Multidetector volumetric CT imaging of the chest was done. Axial MIP volume rendering provided. Sagittal and coronal reformatted images were obtained. This CT examination was performed using dose optimization techniques as appropriate, variously including the following: *Automated exposure control *Adjustment of mA and/or kV according to patient size (this includes techniques or standardized protocols for targeted exams where dose is matched to indication/reason for exam; i.e. extremities or head) *Use of iterative reconstruction technique. DLP: 243 mGy centimeter. FINDINGS: BRAND MARKETING COORDINATOR: Upper extremities at the size of the head. No hyperinflation. LUNGS: There is a focal subtle area of groundglass involving the right middle lobe with associated less than 5 mm noncalcified pulmonary nodules. There are scattered, less than 5 mm noncalcified pulmonary nodules abutting the pleura right lower lung lobe. No bronchiectasis. No honeycombing. MEDIASTINUM: Prominent, 9 mm lymph node in the right great liz/right mainstem bronchus. No pericardial effusion. No aneurysm in the thoracic aorta. No pneumomediastinum.. CORONARY ARTERY CALCIFICATION: None visualized on this study. PLEURA: No pleural effusion. No pneumothorax. No hemothorax. AXILLA: No lymphadenopathy. UPPER ABDOMEN: Contracted gallbladder. Probable small accessory spleens. Abundant food contents in the stomach. OSSEOUS STRUCTURES: No acute fracture or listhesis. No gross lytic or blastic lesions. CT/CT chest wo IV con IMPRESSION: Acute on chronic airspace disease, right middle lobe without seated subcentimeter noncalcified pulmonary nodules, right middle lobe and right lower lung lobe. 9 mm prominent lymph nodes, right premainstem bronchus. Malignancy cannot be entirely excluded. Fleischner guidelines were followed. Electronically signed by: Toño Victoria MD 05/10/2024 03:21 PM [facility]
[2024-05-10 14:09] LABS: MANUAL DIFF FLAG NO
[2024-05-10 14:21] LABS: Basophils Absolute Auto 0.1 X10*3/uL (0.0-0.2); Basophils Percent Auto 1.6 % (0-2); Eosinophils Absolute Auto 0.2 X10*3/uL (0.0-0.4); Eosinophils Percent Auto 3.1 % (0-4); Hematocrit 41.7 % (37.0-47.0); Hemoglobin 14.2 g/dl (12.0-16.0); Imm Gran Abs Auto 0.03 X10*3/uL (0.00-0.03); Imm Gran Pct Auto 0.4 % (0.0-0.4); Lymphocytes Absolute Auto 2.1 X10*3/uL (1.2-4.9); Lymphocytes Percent Auto 30.9 % (20-40); Mean Corpuscular HGB Conc 34.1 g/dl (31.0-35.0); Mean Platelet Volume 9.8 fL (9.4-12.3); Monocytes Absolute Auto 0.4 X10*3/uL (0.1-1.2); Monocytes Percent Auto 5.3 % (2-11); Neutrophils Percent Auto 58.7 % (45-73); Platelet Count 386 X10*3/uL (160-400); Red Blood Count 4.74 X10*6/uL (4.20-5.50); Red Cell Distribution Width 12.4 % (11.0-16.0); White Blood Count 6.8 X10*3/uL (4.8-10.8)
[2024-05-10 14:28] LABS: Alanine Aminotransferase 158 U/L (0-31); Albumin Level 4.3 g/dL (3.5-5.0); Alkaline Phosphatase 81 U/L (39-117); Anion Gap 11 (12-20); Aspartate Amino Transferase 113 U/L (5-31); Bilirubin Total 0.5 mg/dL (0.0-1.0); Blood Urea Nitrogen 11 mg/dL (9-16); Calcium 9.4 mg/dL (8.4-10.2); Carbon Dioxide 27 mmol/L (22-29); Chloride 107 mmol/L (96-108); Estimated Glomerular Filt Rate > 60; Glucose Random 97 mg/dL (60-115); Potassium 3.9 mmol/L (3.3-5.1); Sodium 141 mmol/L (135-145); Total Protein 8.2 g/dL (6.5-8.0)
[2024-05-11 19:14] LABS: Class Alternaria alternata 0; Class Aspergillus fumigatus 0; Class Bermuda Grass 0; Class Birch 0; Class Cat Dander 0; Class Cladosporium herbarum 0; Class Cockroach 0; Class Common Ragweed 0; Class Cottonwood 0; Class Derm. pterony 0; Class Dermatophagoides farinae 0; Class Dog Dander 0; Class Elm 0; Class Maple Box Elder 0; Class Mountain Cedar 0; Class Mouse Urine Protein 0; Class Mugwort 0; Class Oak 0; Class Penicillium crysogenum 0; Class Rough Pigweed 0; Class Sheep Sorrel 0; Class Sycamore 0; Class Timothy Grass 0; Class Walnut Tree 0; Class White Ash 0; Class White Mulberry 0; D001 IgE D pteronyssinus <0.10 kU/L; D002 - IgE D farinae <0.10 kU/L; E001 - IgE Cat Dander <0.10 kU/L; E005 - IgE Dog Dander <0.10 kU/L; E072-IgE Mouse Urine <0.10 kU/L; G002 IgE Bermuda Grass <0.10 kU/L; G006 - IgE Timothy Grass <0.10 kU/L; I006-IgE Cockroach, German <0.10 kU/L; Immunoglobulin E 24 kU/L (<OR=114); M001 IgE Penicillium chrysogen <0.10 kU/L; M002 - IgE Cladosporium herbar <0.10 kU/L; M003 - IgE Aspergillus fumigat <0.10 kU/L; M006 - IgE Alternaria alternat <0.10 kU/L; T001 IgE Maple/Box Elder <0.10 kU/L; T003 IgE Common Silver Birch <0.10 kU/L; T006 - IgE Cedar, Mountain <0.10 kU/L; T007 - IgE Oak, White <0.10 kU/L; T008 IgE Elm, American <0.10 kU/L; T010 - IgE Walnut <0.10 kU/L; T011 - IgE Maple Leaf Sycamore <0.10 kU/L; T014 - IgE Cottonwood <0.10 kU/L; T015 - IgE Ash, White <0.10 kU/L; T070 - IgE White Mulberry <0.10 kU/L; W001 - IgE Ragweed, Short <0.10 kU/L; W006 - IgE Mugwort <0.10 kU/L; W014 IgE Pigweed, Common <0.10 kU/L; W018 IgE Sheep Sorrel <0.10 kU/L
== END 2024-05-10 14:00 | disposition home or self-care (01) ==
LOC: HO.CT 13:59
PROVIDERS: PCP Nurse Practitioner Family; Visit Provider Nurse Practitioner Family
DX: R05.3 Chronic cough (principal); U09.9 Post COVID-19 condition, unspecified
CPT/HCPCS: 36415; 71250; 80053; 82785; 85025; 86003

== ENCOUNTER → 2024-05-10 14:11 | Outpatient (BNV) | payer OTHER, SELFPAY | PROVIDERS: PCP Nurse Practitioner Family; Visit Provider Radiology Diagnostic Radiology | DX: R05.9 Cough, unspecified (principal) | CPT/HCPCS: 71250 ==

== ENCOUNTER 2024-05-11 08:16 | Outpatient (AMB) | payer OTHER, SELFPAY ==
--- NOTE | 2024-05-11 08:06 | A.OFFVIS_ITS ---
Intake Visit Reasons: result review Allergies codeine Allergy (Unknown, Verified 03/13/24 08:17) nausea and vomiting HPI HPI result review: Details: History of Present Illness The patient is a 33-year-old female presenting with a chronic cough. This issue has been ongoing for over a year, with temporary improvement during the spring and summer months, and exacerbation during winter. The cough intensified following a COVID-19 infection in the fall of 2023. A computed tomography (CT) scan conducted in 2021 revealed small right pulmonary nodules, the largest measuring 4 mm, but no signs of pneumonia or interstitial lung disease were detected at that time. The patient denied being a current smoker but admitted to smoking at that time. Today, pt reported smoking up to half a pack per day until she quit in 2014, started around age 16-17. Pulmonary function tests (PFT) were ordered and returned without concerning findings. However, a recent CT scan indicated acute on chronic airspace disease in the right middle lobe and ad ditional subcentimeter noncalcified pulmonary nodules in the right middle and lower lobes, with a prominent 9 mm lymph node. The possibility of malignancy could not be completely ruled out. The patient denies fevers, chills, or mucus production associated with the cough. She has a pending appointment with a service unit operator and pending laboratory tests, including RAST and immunoglobulin E (IgE) testing. She has a history of chronic sinusitis. In addition to the respiratory concerns, the patient recently had elevated liver enzymes, with an aspartate aminotransferase (AST) level of 113 and alanine aminotransferase (ALT) level of 158. An abdominal ultrasound performed in October 2023 showed normal findings. She reported right upper quadrant discomfort upon examination during our telephone visit, thus a CT scan of the abdomen was ordered. The patient denies other gastrointestinal symptoms such as diarrhea or constipation. Pt is tolerating a diet. Review of Systems - Respiratory: Denies fever, chills, mucus production. - Gastrointestinal: Denies nausea, vomiting, diarrhea, constipation. Plan - Chronic Cough: Await evaluation by pulmonology in the upcoming appointment. Follow up on pending LANCE and IgE tests. Monitor symptoms and escalate to emergency care if needed. - Sinusitis: Continue monitoring and manage symptomatically if required. - Pulmonary Nodules: Follow up on pulmonary evaluation and further necessary diagnostic testing as advised. - Elevated Liver Enzymes: Recheck liver enzymes in approximately one week. Abdominal CT scan has been ordered to investigate the cause of elevated liver enzymes. Discussion Notes I discussed the chronicity of the cough with the patient, emphasizing its exacerbation with seasonal changes and [id number] implications. I explained the findings of past and recent CT scans, highlighting the concerns regarding pulmonary nodules and the significant finding of a prominent lymph node. I addressed the elevated liver enzymes and potential gastrointestinal implications considering her recent right upper quadrant discomfort. Further investigative testing with a CT scan of the abdomen and repeat liver function tests were planned. I advised on close monitoring of symptoms and emphasized the importance of attending the service unit operator appointment. The patient was informed of potential differential diagnoses and the rationale behind ordered tests and refers. Patient Instructions - Follow up with the service unit operator as scheduled. - Attend all pending lab appointments. - Monitor for any change in symptoms, particularly worsening cough or new respiratory issues, and seek immediate care if these occur. - Report any new or worsening abdominal discomfort. - Maintain hydration and a balanced diet, and continue previous cessation of smoking. - Return to care if any acute or concerning symptoms develop before your next scheduled appointment. [facility] Medical History Right flank pain Recurrent major depressive disorder in partial remission Bilateral headaches Irregular menses Acquired hypothyroidism Surgical History History of tooth extraction Family History Father Cholesterol embolus syndrome Substance use disorder Mental health disorder Mother Multiple sclerosis Mental health disorder Brother Substance use disorder Paternal Grandfather Substance use disorder Social History Household Members: Spouse and Children Housing: House Alcohol intake: former Patient Tobacco Use Status: Former Tobacco user e-Cigarette/Vaping Use: Never Used Second Hand Smoke Exposure: No (sometimes ) service: No Current occupational status: employed 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 Sexual orientation: Straight/Heterosexual Gender identity: Female Cognitive needs: No Hearing needs: No Vision needs: No Female Reproductive History Menstrual Age of Menarche: 10 Telehealth Telehealth Telehealth Platform: [facility] Location of provider rendering services: practice address Location of patient: address on file Patient Identification confirmed using: Name, : Yes Telehealth method: video Patient verbally consented to treatment: Yes Patient verbally consented to billing insurance company: Yes Patient informed of any privacy concerns related to visit: Yes Minutes spent on Phone/Video with Pt.: 16 Assessment & Plan Assessment & Plan (1) Abnormal CT lung screening: Code(s): R91.8 - Other nonspecific abnormal finding of lung field Category: Medical (2) Abdominal pain: Code(s): R10.9 - Unspecified abdominal pain Category: Medical (3) Elevated liver enzymes: Code(s): R74.8 - Abnormal levels of other serum enzymes Category: Medical Plan . Orders: Orders CT abdomen wo IV con Today R10.9 - Unspecified abdominal pain, R74.8 - Abnormal levels of other serum enzymes Mitochondrial Antibody Today R10.9 - Unspecified abdominal pain, R74.8 - Abnormal levels of other serum enzymes Referrals Neurology Referral Z82.0 - Family history of epilepsy and other diseases of the nervous system Coding Level of Care Code Tele Est Pt Level 4 (12482) Diagnoses Abnormal CT lung screening R91.8 Abdominal pain R10.9 Elevated liver enzymes R74.8
== END 2024-05-11 08:18 | disposition home or self-care (01) ==
LOC: HO.HMCC 08:16
PROVIDERS: PCP Nurse Practitioner Family; Visit Provider Nurse Practitioner Family
DX: R91.8 Other nonspecific abnormal finding of lung field (principal); R10.9 Unspecified abdominal pain; R74.8 Abnormal levels of other serum enzymes

== ENCOUNTER → 2024-05-11 08:16 | Outpatient (BNVA) | payer OTHER, SELFPAY | PROVIDERS: PCP Nurse Practitioner Family; Visit Provider Nurse Practitioner Family | DX: R74.8 Abnormal levels of other serum enzymes (principal); R10.9 Unspecified abdominal pain; Z82.0 Family history of epilepsy and other diseases of the nervous system; R91.8 Other nonspecific abnormal finding of lung field ==

== ENCOUNTER 2024-05-19 11:30 | Outpatient (REF) | payer OTHER, SELFPAY ==
[2024-05-19 14:10] LABS: Alanine Aminotransferase 61 U/L (0-31); Alkaline Phosphatase 77 U/L (39-117); Aspartate Amino Transferase 40 U/L (5-31); Bilirubin Direct 0.2 mg/dL (0.0-0.5); Bilirubin Total 0.6 mg/dL (0.0-1.0); Total Protein 7.5 g/dL (6.5-8.0)
[2024-05-22 09:25] LABS: HBS Num1 131.51 mIU/mL (0-7.99); HBc Num1 0.08 S/CO (0.00-0.79); HBsAGNum1 0.38 S/CO (0.00-0.99); Hepatitis B Core Antibody Nonreactive (Nonreactive); Hepatitis B Surface Antigen Negative (Negative); ~Hepatitis A Antibody IgM Nonreactive (Nonreactive); ~Hepatitis B Surface Antibody REACTIVE (Nonreactive); ~Hepatitis C Antibody Nonreactive (Nonreactive)
[2024-05-22 20:44] LABS: Immunoglobulin E 24 kU/L (<OR=114)
[2024-05-23 11:39] LABS: Smooth Muscle Antibody <20 U (<20)
[2024-05-23 13:39] LABS: Mitochondrial Antibodies NEGATIVE (NEGATIVE)
== END 2024-05-19 11:31 | disposition home or self-care (01) ==
LOC: HO.HMGCLDS 11:30
PROVIDERS: PCP Nurse Practitioner Family; Visit Provider Nurse Practitioner Family
DX: R74.8 Abnormal levels of other serum enzymes (principal); R05.3 Chronic cough; R10.9 Unspecified abdominal pain
CPT/HCPCS: 36415; 80076; 82785; 86015; 86381; 86704; 86706; 86709; 86803; 87340

== ENCOUNTER 2024-05-23 15:15 | Outpatient (AMB) | payer OTHER, SELFPAY ==
--- NOTE | 2024-05-23 15:31 | A.OFFVIS_ITS ---
Vital Signs 05/23/24 15:32 Height 5 ft 2 in Weight 191 lb BMI 34.9 BP 118/64 Blood Pressure Location Lt brachial Position Sitting Pulse 102 H Pulse Source Pulse Oximeter Pulse Oximetry (%) 97 Oxygen Delivery Method Room Air Intake Visit Reasons: Chronic cough Robotics Mechanic Required: No Automat Watcher: Automat Watcher offered & declined Accompanied by: Spouse Allergies codeine Allergy (Unknown, Verified 05/23/24 15:36) nausea and vomiting Medication List - Last Reconciled 05/23/24 by Naomi Vasquez LPN albuterol sulfate 90 mcg/actuation 2 inhalations inhalation Q8H PRN levothyroxine 137 mcg PO DAILY 90 days medroxyprogesterone (Depo-Provera) 150 mg IM [id number] 90 days mometasone 100 mcg/actuation (Asmanex HFA) 1 inh inhalation BID sertraline 150 mg (1.5 x 100 mg) PO DAILY 90 days HPI HPI Chronic cough: Details: Lexie is a pleasant 33 year old female, former smoker, quit 2009 with less than 5 pack year history with underlying hypothyroidism and anxiety. She was referred by PCP for pulmonary evaluation for chronic cough and pulmonary nodules. The cough began in December after URI despite two courses of antibiotics and treatments with different ICS inhalers, which have not notably alleviated the symptoms. She also noted COVID-19 infection in January which likely contributed to the symptomatology. She does note that cough is mainly dry occasionally with clear sputum now, previously yellow with associated chest tightness, and wheezing. Denies significant recent shortness of breath. PCP ordered a chest CT which revealed pulmonary nodules, however nodules were present on CT from 2021. There was also note of ggo of RML suggestive of inflammatory/infectious process. She reports several years of recurring respiratory symptoms, with increased severity and persistence over recent years. She notes a chronic cough that occurs for several months each year, notably worse in the winter season. She recently had RAST testing which was unremarkable. 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 She notes multiple family members with asthma however she has no formal diagnosis herself. PCP recently ordered PFT suggestive of small airways disease with significant 19% improvement post-bronchodilator in small to medium airways. [facility] Medical History Right flank pain Recurrent major depressive disorder in partial remission Bilateral headaches Irregular menses Acquired hypothyroidism Surgical History (Reviewed 11/10/23 @ 08:22 by [facility] History of tooth extraction Family History Father Cholesterol embolus syndrome Substance use disorder Mental health disorder Mother Multiple sclerosis Mental health disorder Brother Substance use disorder Paternal Grandfather Substance use disorder Social History (Updated 05/23/24 @ 15:43 by Naomi Vasquez LPN) Household Members: Spouse and Children Housing: House Alcohol intake: former Patient Tobacco Use Status: Former Tobacco user Cigarette Packs Per Day: 0.5 Years Smoked: 8 e-Cigarette/Vaping Use: Never Used Second Hand Smoke Exposure: No (sometimes ) service: No Current occupational status: employed 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 Sexual orientation: Straight/Heterosexual Gender identity: Female Cognitive needs: No Hearing needs: No Vision needs: No Female Reproductive History Menstrual Age of Menarche: 10 Review of Systems Const Denies chills, Denies excessive sweating, Denies fever(s), Denies headache(s) and Denies night sweats Eyes Denies dry eyes, Denies irritation and Denies itchy eyes ENT Reports Normal hearing present, Denies headache(s), Denies nasal congestion, Denies nasal discharge, Denies post nasal drip and Denies sore throat Card Denies chest pain, Denies chest pain at rest, Denies chest pain with activity, Denies claudication, Denies leg edema, Denies dyspnea, Denies dyspnea on exertion, Denies orthopnea and Denies paroxysmal nocturnal dyspnea Resp Denies chest congestion, Denies excessive phlegm production, Denies pain on inspiration, Denies pain with cough, Denies dyspnea, Denies dyspnea on exertion and Denies stridor Musc Denies myalgias Neuro Reports Normal hearing present and Denies headache(s) Endo Denies excessive sweating Doug/Lymph Denies lymphadenopathy Aller/Immun Denies itchy eyes and Denies seasonal rhinorrhea Physical Exam Vital Signs: Last Vital Signs Pulse 102 H 05/23/24 15:32 BP 118/64 05/23/24 15:32 Pulse Ox 97 05/23/24 15:32 Oxygen Delivery Method Room Air 05/23/24 15:32 BMI result Body Mass Index 34.9 Const General: cooperative, healthy appearing, comfortable, no acute distress, well developed and alert Nutritional Appearance: obese Orientation/consciousness: patient oriented x3 Limitations: no limitations HEENT Head: Yes normal to inspection, Yes normocephalic and Yes atraumatic Ears: hearing grossly normal bilaterally and external ears normal Eyes General: appearance normal, both eyes and all related structures Eyelids: Yes eyelids normal Sclerae: sclerae normal EOM: EOMs intact bilaterally Neck Neck: Yes normal visual inspection and Yes no lymphadenopathy Lymphatic: no lymphadenopathy noted Chest Chest palpation & inspection: normal inspection of the chest Resp Effort & Inspection: normal respiratory effort, able to speak in complete sentences, no audible wheezes, no cough, no stridor, not tachypneic, no tripod positioning and no use of accessory muscles Auscultation: clear to auscultation bilaterally Cardio Jugular venous distension: no JVD Rate: regular rate Rhythm: regular rhythm Skin Other: warm, dry General skin exam: no rashes or lesions noted Neuro General: patient oriented x3 Cranial nerves: Yes Normal hearing present Cognition (Neuro): normal cognition Gait exam (Neuro): Normal gait present Extrem General: Yes normal to inspection, Yes capillary refill normal, Yes no clubbing, cyanosis or edema and Yes no pedal edema Psych Appearance: grossly normal and well kempt Speech and movement: Normal speech and movement present and Clear speech present Affect: normal affect Attitude: cooperative Thought process: Normal thought process present Thought content: Normal thought content present Insight: Good insight present (Psych) Judgement: Good judgement present (Psych) Results Reviewed Results Reviewed: [place] [address] CT Scan Report Signed Patient: Lexie Jenkins MR#: [id number] : 1990 Acct:[id number] Age/Sex: 33 / F ADM Date: 05/10/24 Loc: HO.CT Attending Dr: Link DUKE Ordering Physician: Link Carranza Date of Service: 05/10/24 Procedure(s): CT chest wo IV con Accession Number(s): [id number] cc: Link Carranza~ Report Number: [id number]: Total DLP = 243.00 mGy-cm EXAMINATION: CT CHEST WITHOUT CONTRAST CLINICAL INFORMATION: Chronic cough. COMPARISON: CT dated January 26, 2022. TECHNIQUE: Multidetector volumetric CT imaging of the chest was done. Axial MIP volume rendering provided. Sagittal and coronal reformatted images were obtained. This CT examination was performed using dose optimization techniques as appropriate, variously including the following: *Automated exposure control *Adjustment of mA and/or kV according to patient size (this includes techniques or standardized protocols for targeted exams where dose is matched to indication/reason for exam; i.e. extremities or head) *Use of iterative reconstruction technique. DLP: 243 mGy centimeter. 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 No hyperinflation. LUNGS: There is a focal subtle area of groundglass involving the right middle lobe with associated less than 5 mm noncalcified pulmonary nodules. There are scattered, less than 5 mm noncalcified pulmonary nodules abutting the pleura right lower lung lobe. No bronchiectasis. No honeycombing. MEDIASTINUM: Prominent, 9 mm lymph node in the right great liz/right mainstem bronchus. No pericardial effusion. No aneurysm in the thoracic aorta. No pneumomediastinum.. CORONARY ARTERY CALCIFICATION: None visualized on this study. PLEURA: No pleural effusion. No pneumothorax. No hemothorax. AXILLA: No lymphadenopathy. UPPER ABDOMEN: Contracted gallbladder. Probable small accessory spleens. Abundant food contents in the stomach. OSSEOUS STRUCTURES: No acute fracture or listhesis. No gross lytic or blastic lesions. CT/CT chest wo IV con IMPRESSION: Acute on chronic airspace disease, right middle lobe without seated subcentimeter noncalcified pulmonary nodules, right middle lobe and right lower lung lobe. 9 mm prominent lymph nodes, right premainstem bronchus. Malignancy cannot be entirely excluded. Fleischner guidelines were followed. Electronically signed by: Toño Victoria MD 05/10/2024 03:21 PM [facility] Dictated By: Toño Underwood MD Signed By: <Electronically signed by Toño Yepez MD in OV> 05/10/24 1521 DD/ 1411 TD/TT: 05/10/24 1449 Cane Loader: Assessment & Plan Assessment & Plan (1) Chronic cough: Code(s): R05.3 - Chronic cough Category: Medical (2) Asthma: Code(s): J45.909 - Unspecified asthma, uncomplicated Category: Medical (3) Pulmonary nodules: Code(s): R91.8 - Other nonspecific abnormal finding of lung field Category: Medical (4) Recurrent respiratory infection: Code(s): J98.8 - Other specified respiratory disorders Category: Medical Plan Adult-onset asthma is the primary suspicion given chronic cough history and family predisposition. Prednisone taper will be sent to target likely persistent inflammation observed in CT scans, and initiate Breo. Continued observation of pulmonary nodules will ensue with a planned follow-up CT chest with contrast in three months to track nodule progression and any additional lymph node changes. Will send for bloodwork will assess the patient's immune function given the possibility of underlying factors influencing prolonged illness duration or recurrent respiratory infections. All questions were answered and patient is in agreement of plan. Will follow up in 6-8 weeks or sooner if needed. Orders: Orders CT chest w IV con 10 Weeks R91.8 - Other nonspecific abnormal finding of lung field Immunoglobulins,IgG IgA IgM 05/23/24 J98.8 - Other specified respiratory disorders Immunoglobulin G Subclasses 05/23/24 J98.8 - Other specified respiratory disorders Medications: New fluticasone furoate-vilanterol 100-25 mcg/dose (Breo Ellipta) 1 inh inhalation DAILY 60 ea 3RF prednisone see taper instructions; 40 mg Daily x3 days, 30 mg daily x3 days, 20 mg daily x3 days, 10 mg daily x3 days 10 mg PO DIRECTED 30 tabs 0RF Discontinued mometasone 100 mcg/actuation (Asmanex HFA) Discontinued Reason: Patient Completed Course 1 inh inhalation BID 13 grams 0RF Coding Level of Care Code New Pt Level 4 (20574) Diagnoses Chronic cough R05.3 Asthma J45.909 Pulmonary nodules R91.8 Recurrent respiratory infection J98.8
[2024-05-23 15:32] VITALS: BP 118/64; PULSE 102; O2SAT 97; BMI 34.9
== END 2024-05-23 16:28 | disposition home or self-care (01) ==
PROVIDERS: PCP Nurse Practitioner Family; Referring Provider Nurse Practitioner Family; Visit Provider Nurse Practitioner Family
DX: R05.3 Chronic cough (principal); J45.909 Unspecified asthma, uncomplicated; R91.8 Other nonspecific abnormal finding of lung field; J98.8 Other specified respiratory disorders
CPT/HCPCS: 99204

== ENCOUNTER → 2024-05-23 15:15 | Outpatient (BNVA) | payer OTHER, SELFPAY | PROVIDERS: PCP Nurse Practitioner Family; Referring Provider Nurse Practitioner Family; Visit Provider Nurse Practitioner Family ==

== ENCOUNTER 2024-06-09 11:06 | Outpatient (REF) | payer OTHER, SELFPAY ==
[2024-06-13 10:47] LABS: Immunoglobulin G Subclass 1 805 mg/dL (382-929); Immunoglobulin G Subclass 2 293 mg/dL (241-700); Immunoglobulin G Subclass 3 71 mg/dL (22-178); Immunoglobulin G Subclass 4 12.1 mg/dL (4-86); Immunoglobulin G Total 1263 mg/dL (600-1640)
[2024-06-16 04:17] LABS: IgA 217 mg/dL (47-310); IgG 1381 mg/dL (600-1640); IgM 107 mg/dL (50-300)
== END 2024-06-09 11:07 | disposition home or self-care (01) ==
LOC: HO.HMGCLDS 11:06
PROVIDERS: PCP Nurse Practitioner Family; Visit Provider Nurse Practitioner Family
DX: J98.8 Other specified respiratory disorders (principal)
CPT/HCPCS: 36415; 82784

== ENCOUNTER 2024-06-30 13:40 | Outpatient (AMB) | payer OTHER, SELFPAY ==
[2024-06-30 13:50] VITALS: PULSE 67; O2SAT 97; BMI 34.9
--- NOTE | 2024-06-30 13:50 | A.OFFVIS_ITS ---
Vital Signs 06/30/24 13:50 Height 5 ft 2 in Weight 191 lb BMI 34.9 Pulse 67 Pulse Source Pulse Oximeter Pulse Oximetry (%) 97 Oxygen Delivery Method Room Air Intake Visit Reasons: Chronic cough Township Supervisor Required: No Button Attaching Machine Operator: Button Attaching Machine Operator offered & declined Accompanied by: Self / Same As Patient Allergies codeine Allergy (Unknown, Verified 06/30/24 13:55) nausea and vomiting Medication List - Last Reconciled 06/30/24 by Naomi Vasquez LPN albuterol sulfate 90 mcg/actuation 2 inhalations inhalation Q8H PRN fluticasone furoate-vilanterol 100-25 mcg/dose (Breo Ellipta) 1 inh inhalation DAILY fluticasone furoate-vilanterol 200-25 mcg/dose (Breo Ellipta) 1 inh inhalation DAILY levothyroxine 137 mcg PO DAILY 90 days medroxyprogesterone (Depo-Provera) 150 mg IM [id number] 90 days sertraline 150 mg (1.5 x 100 mg) PO DAILY 90 days HPI HPI Chronic cough: Details: Lexie is a pleasant 34 year old female, former smoker, quit 2009 with less than 5 pack year history with underlying hypothyroidism and anxiety. She was initally referred by PCP for pulmonary evaluation for chronic cough and pulmonary nodules. The cough began in December after URI despite two courses of antibiotics and treatments with different ICS inhalers, which have not notably alleviated the symptoms. She also noted COVID-19 infection in January.. She does note that cough is mainly dry occasionally with clear sputum now, previously yellow with associated chest tightness, and wheezing. Denies significant recent shortness of breath. PCP ordered a chest CT which revealed pulmonary nodules, however nodules were present on CT from 2021. There was also note of ggo of RML suggestive of inflammatory/infectious process. She has upcoming chest CT scheduled in July to assess for resolution. PFT suggestive of small airways disease with significant 19% improvement post-bronchodilator in small to medium airways. She was started on Breo and albuterol MDI with minimal improvement. She continues with dry cough and dyspnea. Cough tends to worsen when supine. Denies reflux symptoms. Denies wheezing, chest tightness, chest congestion, fever or chills. She denies any changes to cough dependent on environment. 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 [facility] Medical History Right flank pain Recurrent major depressive disorder in partial remission Bilateral headaches Irregular menses Acquired hypothyroidism Surgical History History of tooth extraction Family History Father Cholesterol embolus syndrome Substance use disorder Mental health disorder Mother Multiple sclerosis Mental health disorder Brother Substance use disorder Paternal Grandfather Substance use disorder Social History Household Members: Spouse and Children Housing: House Alcohol intake: former Patient Tobacco Use Status: Former Tobacco user Cigarette Packs Per Day: 0.5 Years Smoked: 8 e-Cigarette/Vaping Use: Never Used Second Hand Smoke Exposure: No (sometimes ) service: No Current occupational status: employed 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 Sexual orientation: Straight/Heterosexual Gender identity: Female Cognitive needs: No Hearing needs: No Vision needs: No Female Reproductive History Menstrual Age of Menarche: 10 Review of Systems Const Denies chills, Denies excessive sweating, Denies fever(s), Denies headache(s) and Denies night sweats Eyes Denies dry eyes, Denies irritation and Denies itchy eyes ENT Reports Normal hearing present, Denies headache(s), Denies nasal congestion, Denies nasal discharge, Denies post nasal drip and Denies sore throat Card Denies chest pain, Denies chest pain at rest, Denies chest pain with activity, Denies claudication, Denies leg edema, Denies dyspnea, Denies orthopnea and Denies paroxysmal nocturnal dyspnea Resp Denies change in phlegm color, Denies chest congestion, Reports cough, Denies hemoptysis, Denies excessive phlegm production, Denies pain on inspiration, Denies pain with cough, Denies dyspnea, Denies stridor and Denies wheezing Musc Denies myalgias Neuro Reports Normal hearing present and Denies headache(s) Endo Denies excessive sweating Doug/Lymph Denies lymphadenopathy Aller/Immun Denies itchy eyes, Denies seasonal rhinorrhea and Denies wheezing Physical Exam Vital Signs: Last Vital Signs Pulse 67 06/30/24 13:50 Pulse Ox 97 06/30/24 13:50 Oxygen Delivery Method Room Air 06/30/24 13:50 BMI result Body Mass Index 34.9 Const General: cooperative, healthy appearing, comfortable, no acute distress, well developed and alert Nutritional Appearance: obese Orientation/consciousness: patient oriented x3 Limitations: no limitations HEENT Head: Yes normal to inspection, Yes normocephalic and Yes atraumatic Ears: hearing grossly normal bilaterally and external ears normal Eyes General: appearance normal, both eyes and all related structures Eyelids: Yes eyelids normal Sclerae: sclerae normal EOM: EOMs intact bilaterally Neck Neck: Yes normal visual inspection and Yes no lymphadenopathy Lymphatic: no lymphadenopathy noted Chest Chest palpation & inspection: normal inspection of the chest Resp Other: postexhalation cough with respiratory exam, dry cough throughout visit Effort & Inspection: normal respiratory effort, able to speak in complete sentences, no audible wheezes, no stridor, not tachypneic, no tripod positioning and no use of accessory muscles Auscultation: clear to auscultation bilaterally Cardio Jugular venous distension: no JVD Rate: regular rate Rhythm: regular rhythm Skin Other: warm, dry General skin exam: no rashes or lesions noted Neuro General: patient oriented x3 Cranial nerves: Yes Normal hearing present Cognition (Neuro): normal cognition Gait exam (Neuro): Normal gait present Extrem General: Yes normal to inspection, Yes capillary refill normal, Yes no clubbing, cyanosis or edema and Yes no pedal edema Psych Appearance: grossly normal and well kempt Speech and movement: Normal speech and movement present and Clear speech present Affect: normal affect Attitude: cooperative Thought process: Normal thought process present Thought content: Normal thought content present Insight: Good insight present (Psych) Judgement: Good judgement present (Psych) Assessment & Plan Assessment & Plan (1) Chronic cough: Code(s): R05.3 - Chronic cough Category: Medical (2) Asthma: Code(s): J45.909 - Unspecified asthma, uncomplicated Category: Medical (3) Pulmonary nodules: Code(s): R91.8 - Other nonspecific abnormal finding of lung field Category: Medical Plan Lexie reports minimal change in respiratory symptoms since adding Breo and albuterol MDI. Awaiting repeat chest CT to further evaluate. At this time, will send prednisone as likely inflammatory process contributing to symptoms. May need to consider CTD workup. Reviewed immune labs as well as RAST which were unremarkable. All questions were answered and patient is in agreement of plan. Will follow up to review CT results or sooner if needed. Medications: New prednisone see taper instructions; 40 mg Daily x3 days, 30 mg daily x3 days, 20 mg daily x3 days, 10 mg daily x3 days 10 mg PO DIRECTED 30 tabs 0RF Discontinued fluticasone furoate-vilanterol 100-25 mcg/dose Discontinued Reason: Patient Completed Course 1 inh inhalation DAILY 60 ea 3RF Coding Level of Care Code Est Pt Level 4 (14281) Diagnoses Chronic cough R05.3 Asthma J45.909 Pulmonary nodules R91.8
== END 2024-06-30 14:48 | disposition home or self-care (01) ==
LOC: HO.HPSW 13:41
PROVIDERS: PCP Nurse Practitioner Family; Visit Provider Nurse Practitioner Family
DX: R05.3 Chronic cough (principal); J45.909 Unspecified asthma, uncomplicated; R91.8 Other nonspecific abnormal finding of lung field
CPT/HCPCS: 99214

== ENCOUNTER 2024-08-01 06:47 | Outpatient (REF) | payer OTHER, SELFPAY ==
--- NOTE | ~2024-08-01 | CT_ITS ---
EXAMINATION: CT CHEST WITH IV CONTRAST, CT ABDOMEN WITH IV CONTRAST INDICATION: R91.8 - Other nonspecific abnormal finding of lung field, abnormal levels of other serum enzymes COMPARISON: Comparison is made with the prior chest CT dated 05/10/[address] of the abdomen and pelvis dated 06/15/2020. TECHNIQUE: CT scan of the chest and abdomen was performed following administration of 85 mL Omnipaque 350 using standard departmental protocol. Coronal and sagittal reformatted images were generated and reviewed. Oral contrast material was not administered at the request of the referring physician. This CT exam was performed with one or more of the following dose reduction techniques: automated exposure control, adjustment of the mA and/or kV according to patient size, use of iterative reconstruction technique. DLP: 403 mGy-cm CHEST: THYROID: The thyroid is unremarkable. LUNGS: Again seen is a 5 mm nodule at the right lung apex (series 4, image 33). There is scarring and groundglass opacity in the right middle lobe. A 5 mm nodule in the right middle lobe (series 4, image 81) is stable. The lungs are otherwise clear. MEDIASTINUM: Again seen is a 1.5 cm right paratracheal lymph node. Subcentimeter superior mediastinal and AP window lymph nodes are unchanged. LITTLE: There are bilateral hilar lymph nodes measuring up to 12 mm in size. CARDIOVASCULATURE: The heart is normal in size. There is no pericardial effusion. The thoracic aorta is normal in caliber. DEGREE OF CORONARY CALCIFICATION: none PLEURA: There is no pleural effusion. No pneumothorax. MAIN AIRWAYS: The mainstem bronchi and proximal branches are patent. AXILLA: There is no axillary lymphadenopathy. SOFT TISSUES: Unremarkable. BONES: The bones are intact. ABDOMEN: LIVER: The liver is normal in size and contour. Subcentimeter hypodensities at the dome are too small to accurately characterize. The hepatic and portal veins are patent. GALLBLADDER / BILE DUCTS: The gallbladder is unremarkable. There is no intra or extrahepatic biliary ductal dilatation. SPLEEN: The spleen is normal in size. No focal splenic lesion is identified. PANCREAS: The pancreas is unremarkable in appearance. ADRENAL GLANDS: Within normal limits. KIDNEYS/RETROPERITONEUM: No renal calculi are identified. There is no hydronephrosis. No renal masses are identified. LYMPH NODES: No abdominal or pelvic lymphadenopathy. VASCULATURE: The abdominal aorta is normal in caliber. MESENTERY/PERITONEUM: No free fluid. No masses. There is no free intraperitoneal gas. STOMACH: The stomach is unremarkable. SMALL BOWEL: The visualized portion of the small bowel is normal in caliber. COLON: The visualized portion of the colon is unremarkable. APPENDIX: Normal. BONES / SOFT TISSUES: No suspicious bony or soft tissue abnormalities. CT/CT abdomen w IV con IMPRESSION: 1. Right upper and middle lobe pulmonary nodules measuring up to 5 mm in size without significant change. Follow-up is recommended with chest CT in 6 months. 2. Prominent mediastinal and bilateral hilar lymph nodes. These are more notable for number than size. These can be followed up at the time of follow-up of the right lung nodules. 3. Subcentimeter hypodensities at the dome of the liver which are too small to accurately characterize. Electronically signed by: José Miguel Burkett MD 08/01/2024 08:37 AM EDT
[2024-08-01] MEDS: iohexoL 350 MG/ML 100 ML INFUS..BTL IV (07:53)
== END 2024-08-01 06:48 | disposition home or self-care (01) ==
LOC: HO.CT 06:47
PROVIDERS: PCP Nurse Practitioner Family; Visit Provider Nurse Practitioner Family
DX: R91.8 Other nonspecific abnormal finding of lung field (principal); R74.8 Abnormal levels of other serum enzymes; R10.9 Unspecified abdominal pain
CPT/HCPCS: 71260; 74160; Q9967

== ENCOUNTER → 2024-08-01 06:49 | Outpatient (BNV) | payer OTHER, SELFPAY | PROVIDERS: PCP Nurse Practitioner Family; Visit Provider Radiology Diagnostic Radiology | DX: K76.89 Other specified diseases of liver (principal); R91.8 Other nonspecific abnormal finding of lung field; R59.0 Localized enlarged lymph nodes | CPT/HCPCS: 71260; 74160 ==

== ENCOUNTER 2024-08-01 13:47 | Outpatient (AMB) | payer OTHER, SELFPAY ==
--- NOTE | 2024-08-01 14:10 | MHC.OFFVIS ---
Vital Signs 08/01/24 14:11 Height 5 ft 2 in Weight 189 lb 8 oz BMI 34.7 BP 110/64 Blood Pressure Location Rt brachial Position Sitting Pulse 98 Pulse Source Pulse Oximeter Pulse Oximetry (%) 97 Oxygen Delivery Method Room Air Intake Visit Reasons: Chronic cough Allergies codeine Allergy (Unknown, Verified 09/15/24 15:48) nausea and vomiting HPI HPI Chronic cough: Details: Lexie is a pleasant 34 year old female, former smoker, quit 2009 with less than 5 pack year history with underlying hypothyroidism and anxiety. She was initially referred by PCP for chronic cough that began in December 2023 after URI despite two courses of antibiotics and different ICS inhalers. She also noted COVID-19 infection in January and PFT suggestive of asthma. She was started on Breo with moderate improvement, coughing less, however dry continues on a daily basis with dyspnea on exertion. She was also given prednisone, initially with improvements however minimal improvements with second course. Denies any known triggers. She also reports intermittent right sided pleuritic discomfort without prior history of CTD and denies fatigue, weight loss, dry mouth, dry eyes, vision changes or skin changes. She reports paternal grandmother with Sjogren's. Also, she does note that cough tends to worsen when supine denies current reflux symptoms but does have a h/o reflux in the past. [facility] Medical History Pulmonary nodules Right flank pain Recurrent major depressive disorder in partial remission Bilateral headaches Irregular menses Acquired hypothyroidism Surgical History History of tooth extraction Family History Father Cholesterol embolus syndrome Substance use disorder Mental health disorder Mother Multiple sclerosis Mental health disorder Brother Substance use disorder Paternal Grandfather Substance use disorder Social History Household Members: Spouse and Children Housing: House Alcohol intake: former Patient Tobacco Use Status: Former Tobacco user Cigarette Packs Per Day: 0.5 Years Smoked: 8 e-Cigarette/Vaping Use: Never Used Second Hand Smoke Exposure: No (sometimes ) service: No Current occupational status: employed 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 Sexual orientation: Straight/Heterosexual Gender identity: Female Cognitive needs: No Hearing needs: No Vision needs: No Female Reproductive History Menstrual Age of Menarche: 10 Review of Systems Const Denies chills, Denies excessive sweating, Denies fever(s), Denies headache(s) and Denies night sweats Eyes Denies dry eyes, Denies irritation and Denies itchy eyes ENT Reports Normal hearing present, Denies headache(s), Denies nasal congestion, Denies nasal discharge, Denies post nasal drip and Denies sore throat Card Denies chest pain, Denies chest pain at rest, Denies chest pain with activity, Denies claudication, Denies leg edema, Denies orthopnea and Denies paroxysmal nocturnal dyspnea Resp Denies change in phlegm color, Denies chest congestion, Reports cough, Denies hemoptysis, Denies excessive phlegm production, Denies pain on inspiration, Denies pain with cough, Denies stridor and Denies wheezing Musc Denies myalgias Neuro Reports Normal hearing present and Denies headache(s) Endo Denies excessive sweating Doug/Lymph Denies lymphadenopathy Aller/Immun Denies itchy eyes, Denies seasonal rhinorrhea and Denies wheezing Physical Exam Vital Signs: Last Vital Signs Pulse 98 08/01/24 14:11 BP 110/64 08/01/24 14:11 Pulse Ox 97 08/01/24 14:11 Oxygen Delivery Method Room Air 08/01/24 14:11 BMI result Body Mass Index 34.7 Const General: cooperative, healthy appearing, comfortable, no acute distress, well developed and alert Nutritional Appearance: obese Orientation/consciousness: patient oriented x3 Limitations: no limitations HEENT Head: Yes normal to inspection, Yes normocephalic and Yes atraumatic Ears: hearing grossly normal bilaterally and external ears normal Eyes General: appearance normal, both eyes and all related structures Eyelids: Yes eyelids normal Sclerae: sclerae normal EOM: EOMs intact bilaterally Neck Neck: Yes normal visual inspection and Yes no lymphadenopathy Lymphatic: no lymphadenopathy noted Chest Chest palpation & inspection: normal inspection of the chest Resp Effort & Inspection: normal respiratory effort, able to speak in complete sentences, no audible wheezes, no stridor, not tachypneic, no tripod positioning and no use of accessory muscles Auscultation: clear to auscultation bilaterally Cardio Jugular venous distension: no JVD Rate: regular rate Rhythm: regular rhythm Skin Other: warm, dry General skin exam: no rashes or lesions noted Neuro General: patient oriented x3 Cranial nerves: Yes Normal hearing present Cognition (Neuro): normal cognition Gait exam (Neuro): Normal gait present Extrem General: Yes normal to inspection, Yes capillary refill normal, Yes no clubbing, cyanosis or edema and Yes no pedal edema Psych Appearance: grossly normal and well kempt Speech and movement: Normal speech and movement present and Clear speech present Affect: normal affect Attitude: cooperative Thought process: Normal thought process present Thought content: Normal thought content present Insight: Good insight present (Psych) Judgement: Good judgement present (Psych) Results Reviewed Results Reviewed: [address] [address] [address] Scan Report Signed Patient: Lexie Jenkins MR#: [id number] : 1990 Acct:[id number] Age/Sex: 34 / F ADM Date: 08/01/24 Loc: .CT Attending Dr: Link Carranza [facility] Ordering Physician: Adeline Ferrera NP Date of Service: 08/01/24 Procedure(s): CT chest w IV con Accession Number(s): [id number] cc: Link Carranza EXECUTIVE STAFF ASSISTANT-; Adeline Ferrera NP~ Report Number: [id number]: Total DLP = 114.90 mGy-cm EXAMINATION: CT CHEST WITH IV CONTRAST, CT ABDOMEN WITH IV CONTRAST INDICATION: R91.8 - Other nonspecific abnormal finding of lung field, abnormal levels of other serum enzymes COMPARISON: Comparison is made with the prior chest CT dated 05/10/[address] of the abdomen and pelvis dated 06/15/2020. TECHNIQUE: CT scan of the chest and abdomen was performed following administration of 85 mL Omnipaque 350 using standard departmental protocol. Coronal and sagittal reformatted images were generated and reviewed. Oral contrast material was not administered at the request of the referring physician. This CT exam was performed with one or more of the following dose reduction techniques: automated exposure control, adjustment of the mA and/or kV according to patient size, use of iterative reconstruction technique. DLP: 403 mGy-cm CHEST: THYROID: The thyroid is unremarkable. LUNGS: Again seen is a 5 mm nodule at the right lung apex (series 4, image 33). There is scarring and groundglass opacity in the right middle lobe. A 5 mm nodule in the right middle lobe (series 4, image 81) is stable. The lungs are otherwise clear. MEDIASTINUM: Again seen is a 1.5 cm right paratracheal lymph node. Subcentimeter superior mediastinal and AP window lymph nodes are unchanged. LITTLE: There are bilateral hilar lymph nodes measuring up to 12 mm in size. CARDIOVASCULATURE: The heart is normal in size. There is no pericardial effusion. The thoracic aorta is normal in caliber. DEGREE OF CORONARY CALCIFICATION: none PLEURA: There is no pleural effusion. No pneumothorax. MAIN AIRWAYS: The mainstem bronchi and proximal branches are patent. AXILLA: There is no axillary lymphadenopathy. SOFT TISSUES: Unremarkable. BONES: The bones are intact. ABDOMEN: LIVER: The liver is normal in size and contour. Subcentimeter hypodensities at the dome are too small to accurately characterize. The hepatic and portal veins are patent. GALLBLADDER / BILE DUCTS: The gallbladder is unremarkable. There is no intra or extrahepatic biliary ductal dilatation. SPLEEN: The spleen is normal in size. No focal splenic lesion is identified. PANCREAS: The pancreas is unremarkable in appearance. ADRENAL GLANDS: Within normal limits. KIDNEYS/RETROPERITONEUM: No renal calculi are identified. There is no hydronephrosis. No renal masses are identified. LYMPH NODES: No abdominal or pelvic lymphadenopathy. VASCULATURE: The abdominal aorta is normal in caliber. MESENTERY/PERITONEUM: No free fluid. No masses. There is no free intraperitoneal gas. STOMACH: The stomach is unremarkable. SMALL BOWEL: The visualized portion of the small bowel is normal in caliber. COLON: The visualized portion of the colon is unremarkable. APPENDIX: Normal. BONES / SOFT TISSUES: No suspicious bony or soft tissue abnormalities. CT/CT chest w IV con IMPRESSION: 1. Right upper and middle lobe pulmonary nodules measuring up to 5 mm in size without significant change. Follow-up is recommended with chest CT in 6 months. 2. Prominent mediastinal and bilateral hilar lymph nodes. These are more notable for number than size. These can be followed up at the time of follow-up of the right lung nodules. 3. Subcentimeter hypodensities at the dome of the liver which are too small to accurately characterize. Electronically signed by: José Miguel Burkett MD 08/01/2024 08:37 AM EDT RP Assessment & Plan Assessment & Plan (1) Chronic cough: Code(s): R05.3 - Chronic cough Category: Medical (2) Asthma: Code(s): J45.909 - Unspecified asthma, uncomplicated Category: Medical (3) Pulmonary nodules: Code(s): R91.8 - Other nonspecific abnormal finding of lung field Category: Medical Plan Lexie reports moderate improvements with Breo however continues with suboptimal control, will send in Trelegy. Will also send for CTD workup given intermittent pleuritic discomfort. Reviewed chest CT ordered by PCP which revealed stable findings, and recommendation for [address] with IV contrast. Will enter this. All questions were answered and patient is in agreement of plan. Will follow up to review results or sooner if needed. Orders: Orders Anti DNA DS Antibody 08/01/24 R07.81 - Pleurodynia Scleroderma 70 Antibody 08/01/24 R07.81 - Pleurodynia Sjogren's Antibodies 08/01/24 R07.81 - Pleurodynia Angiotensin Converting Enzyme 08/01/24 R07.81 - Pleurodynia YESSICA Reflex Titer and Pattern 08/01/24 R07.81 - Pleurodynia Rheumatoid Factor 08/01/24 R07.81 - Pleurodynia Cyclic Citrullinated Peptide 08/01/24 R07.81 - Pleurodynia Medications: New yllxmxcyozw-ajpnivltp-napivphl 200-62.5-25 mcg (Trelegy Ellipta) 1 inh inhalation DAILY 60 ea 6RF Coding Level of Care Code Est Pt Level 4 (61655) Diagnoses Chronic cough R05.3 Asthma J45.909 Pulmonary nodules R91.8
[2024-08-01 14:11] VITALS: BP 110/64; PULSE 98; O2SAT 97; BMI 34.7
== END 2024-08-01 15:04 | disposition home or self-care (01) ==
LOC: HO.HPSW 13:47
PROVIDERS: PCP Nurse Practitioner Family; Visit Provider Nurse Practitioner Family
DX: R05.3 Chronic cough (principal); J45.909 Unspecified asthma, uncomplicated; R91.8 Other nonspecific abnormal finding of lung field
CPT/HCPCS: 99214

== ENCOUNTER 2024-08-01 15:11 | Outpatient (REF) | payer OTHER, SELFPAY ==
[2024-08-01 18:27] LABS: Rheumatoid Factor < 13.0 IU/mL (<15.0)
[2024-08-03 13:28] LABS: Cyclic Citrullinated Peptide <16 UNITS
[2024-08-04 07:24] LABS: Anti DNA DS Antibody 2 IU/mL; Antibody to SS-A Antigen <1.0 NEG AI (<1.0 NEG); Antibody to SS-B Antigen <1.0 NEG AI (<1.0 NEG); Scleroderma 70 Antibody <1.0 NEG AI (<1.0 NEG)
[2024-08-05 04:54] LABS: Angiotensin Converting Enzyme 21.2 U/L (9-67)
[2024-08-08 16:04] LABS: Anti Nuclear Antibody Pattern Nuclear, Homogeneous; Anti Nuclear Antibody Screen POSITIVE (NEGATIVE); Anti Nuclear Antibody Titer 1:40 titer
== END 2024-08-01 15:12 | disposition home or self-care (01) ==
LOC: HO.WFDLDS 15:11
PROVIDERS: Visit Provider Nurse Practitioner Family
DX: R07.81 Pleurodynia (principal)
CPT/HCPCS: 36415; 82164; 86038; 86039; 86200; 86225; 86235; 86431

== ENCOUNTER 2024-09-05 08:27 | Outpatient (AMB) | payer OTHER, SELFPAY ==
--- NOTE | 2024-09-05 08:56 | A.OFFPC_ITS ---
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 Accompanied by: Self / Same As Patient Allergies codeine Allergy (Unknown, Verified 09/05/24 09:30) nausea and vomiting Medication List - Last Reconciled 09/05/24 by Link Carranza [facility]- albuterol sulfate 90 mcg/actuation 2 inhalations inhalation Q8H PRN fluticasone furoate-vilanterol 200-25 mcg/dose (Breo Ellipta) 1 inh inhalation DAILY ivhjsridhhp-fppirftzw-tankkrjw 200-62.5-25 mcg (Trelegy Ellipta) 1 inh inhalation DAILY levothyroxine 137 mcg PO DAILY 90 days Tobacco use date assessed: 09/05/24 Dental Screening Dental Screen Date: 09/05/24 Did you have a dental visit in the last 12 months?: Yes Did you have a dental problem in the last 6 months where you did not have access to dental care?: No Was dental information given to patient?: Patient has dentist HPI 4m follow up HPI Details Chief Complaint The patient presents with fatigue and arthralgias. History of Present Illness The patient is a 34-year-old female presenting with a positive antinuclear antibody (YESSICA) test and associated symptoms of fatigue and arthralgias. She reports experiencing fatigue and joint pain, which prompted further investigation leading to the positive YESSICA result. There is no report of severe joint tenderness, swelling, or redness, and she denies having fevers or chills. The patient also has a history of chronic cough and lung nodules, for which she is under the care of a finisher merchant products. She is encouraged to maintain regular follow-ups with her apartment leasing specialist to monitor these conditions. Social History Health Maintenance Review of Systems - Musculoskeletal: Reports fatigue and a rthralgias. Denies severe joint tenderness, swelling, or redness. - Constitutional: Denies fevers or chill s. Physical Exam General: Cooperative, healthy appearing, comfortable, no acute distress and well developed Orientation: Patient oriented x3 Limitations: No limitations Head: Normal to inspection Ears: Hearing grossly normal bilaterally Nose: Normal external nose present Face and sinus: Normal facial exam Eyes: Appearance normal, both eyes and all related structures Neck: Normal visual inspection and Yes full ROM Respiratory: Normal respiratory effort and able to speak in complete sentences. Clear to auscultation bilaterally Cardiovascular: Regular rate and rhythm. Normal S1 and S2 GI: Normal to inspection. Soft to palpation and nontender Skin: No rashes or lesions noted Neuro: Patient oriented x3 Extremities: Normal to inspection Results Plan The patient will be referred to rheumatology for further evaluation and management of the positive antinuclear antibody YESSICA) and associated symptoms of fatigue and arthralgias. She is advised to continue regular follow-ups with her finisher merchant products for ongoing management of chronic cough and lung nodules. Discussion Notes I discussed with the patient the significance of the positive antinuclear antibody (YESSICA) and the need for further evaluation by a mold burner to explore potential underlying autoimmune conditions. We also reviewed the importance of maintaining regular pulmonary follow-ups to monitor her chronic cough and lung nodules. Patient Instructions - Follow up with rheumatology for furthe r evaluation of positive YESSICA and associated symptoms. - Continue regular appointments with [facility]isher merchant products for chronic cough and lung nodules. [facility], [facility] Medical History Pulmonary nodules Right flank pain Recurrent major depressive disorder in partial remission Bilateral headaches Irregular menses Acquired hypothyroidism Surgical History History of tooth extraction Family History Father Cholesterol embolus syndrome Substance use disorder Mental health disorder Mother Multiple sclerosis Mental health disorder Brother Substance use disorder Paternal Grandfather Substance use disorder Social History Household Members: Spouse and Children Housing: House Alcohol intake: former Patient Tobacco Use Status: Former Tobacco user Cigarette Packs Per Day: 0.5 Years Smoked: 8 e-Cigarette/Vaping Use: Never Used Second Hand Smoke Exposure: No (sometimes ) service: No Current occupational status: employed 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 1. Little interest or pleasure in doing things: several days 2. Feeling down, depressed, or hopeless: several days 3. Trouble falling or staying asleep, or sleeping too much: not at all 4. Feeling tired or having little energy: more than half the days 5. Poor appetite or overeating: several days 6. Feeling bad about yourself - or that you are a failure or have let yourself or your family down: several days 7. Trouble concentrating on things, such as reading the newspaper or watching television: several days 8. Moving or speaking so slowly that other people could have noticed. Or the opposite - being so fidgety or restless that you have been moving around a lot more than usual: not at all 9. Thoughts that you would be better off or of hurting yourself in some way: not at all Total score: 7 Depression Screening Interpretation: Negative Depression Screening Done: Yes 69481 - PHQ-9 Billing: Yes Source: Developed by Drs. José Miguel Arnett, Jayla Lagos, Tang Luque and colleagues, with an educational estefania from [employer]. Thrive Questionnaire Date Thrive assessed: 09/05/24 I am a: Patient What is your living situation today?: I have a steady place to live Within the past 12 months, did the food you bought not last and you didn't have the money to get more?: Sometimes True Within the past 12 months, did you worry whether your food would run out before you got money to buy more?: Sometimes True Do you have trouble paying for medicines?: No Do you have trouble getting transportation to medical appointments?: No Do you have trouble paying your heating and electricity bill?: No Do you have trouble taking care of your child, family member or friend?: No Do you have trouble with day-to-day activities such as bathing, preparing meals, shopping, managing finances, etc.?: No Are you currently unemployed and looking for a job?: No Are you interested in more education?: No Please select the resources that you would like help with: Food Currently or been in a relationship where the following occur: No concerns reported THRIVE Score: 2 AUDIT C Alcohol Use Questionnaire (AUDIT-C) 1. How often do you have a drink containing alcohol?: Never 3. How often do you have six or more drinks on one occasion?: Never Total Score: 0 Score Reviewed/Action Taken: Yes AISHA-7 AMB Questionnaire AISHA-7 Date AISHA - 7 assessed: 09/05/24 Feeling nervous, anxious, or on edge: 2 = More than half the days Not being able to stop or control worryin = Several days Worrying too much about different things: 1 = Several days Trouble relaxin = Several days Being so restless that it is hard to sit still: 1 = Several days Becoming easily annoyed or irritable: 2 = More than half the days Feeling afraid as if something awful might happen: 1 = Several days Total AISHA-7 score (0-4 normal; 5-9 mild; 10-14 moderate; 15-21 severe): 9 Source: Developed by Drs. José Miguel Arnett, Jayla Lagos, Tang Luque and colleagues, with an educational estefania from [employer]. AISHA-7 Assessment Billing AISHA-7 Assessment Tool: AISHA-7 Assessment 96478 Physical exam (Primary Care) Vital Signs: Last Vital Signs Pulse 86 09/05/24 09:00 BP 112/70 09/05/24 09:00 Pulse Ox 99 09/05/24 09:00 BMI result Body Mass Index 34.2 Tobacco/Smoking Status: Tobacco use Status Tobacco use date assessed 09/05/24 09/05/24 09:05 Patient Tobacco Use Status Former Tobacco user 09/05/24 08:57 e-Cigarette/Vaping Use Never Used 09/05/24 08:57 PHQ-9: PHQ-9 Score PHQ-9: Total score 7 09/05/24 09:05 Depression Screening Interpretation: Negative Thrive Assessment: Date of Thrive Assessment Date Thrive assessed 09/05/24 09/05/24 09:05 Currently or been in a relationship where the following occur: No concerns reported Coding Level of Care Code Est Pt Level 3 (13077) Diagnoses YESSICA positive R76.8 Chronic cough R05.3 Elevated TSH R79.89 Additional Codes AISHA-7 Assessment Billing - AISHA-7 Assessment Tool: AISHA-7 Assessment 16685 ([id number]) PHQ-9 - 29498 - PHQ-9 Billing: Yes ([id number]) Assessment & Plan Assessment & Plan (1) YESSICA positive: Code(s): R76.8 - Other specified abnormal immunological findings in serum Category: Medical (2) Chronic cough: Code(s): R05.3 - Chronic cough Category: Medical (3) Elevated TSH: Code(s): R79.89 - Other specified abnormal findings of blood chemistry Category: Medical Plan . Orders: Orders Comprehensive Met. Panel Today R05.3 - Chronic cough, R76.8 - Other specified abnormal immunological findings in serum US thyroid Today R79.89 - Other specified abnormal findings of blood chemistry Complete Blood Count Auto Diff Today R05.3 - Chronic cough, R76.8 - Other specified abnormal immunological findings in serum Referrals Rheumatology Referral R76.8 - Other specified abnormal immunological findings in serum
[2024-09-05 09:00] VITALS: BP 112/70; PULSE 86; O2SAT 99; BMI 34.2
== END 2024-09-05 09:27 | disposition home or self-care (01) ==
LOC: HO.HMCC 08:27
PROVIDERS: PCP Nurse Practitioner Family; Visit Provider Nurse Practitioner Family
DX: R76.8 Other specified abnormal immunological findings in serum (principal); R05.3 Chronic cough; R79.89 Other specified abnormal findings of blood chemistry

== ENCOUNTER → 2024-09-05 08:27 | Outpatient (BNVA) | payer OTHER, SELFPAY | PROVIDERS: PCP Nurse Practitioner Family; Visit Provider Nurse Practitioner Family | DX: R05.3 Chronic cough (principal); R53.83 Other fatigue; R76.8 Other specified abnormal immunological findings in serum; M25.50 Pain in unspecified joint; R79.89 Other specified abnormal findings of blood chemistry | CPT/HCPCS: 96127 ==

== ENCOUNTER 2024-09-15 08:05 | Outpatient (REF) | payer OTHER, SELFPAY ==
[2024-09-15 10:27] LABS: MANUAL DIFF FLAG NO
[2024-09-15 10:41] LABS: Basophils Absolute Auto 0.1 X10*3/uL (0.0-0.2); Basophils Percent Auto 1.3 % (0-2); Eosinophils Absolute Auto 0.1 X10*3/uL (0.0-0.4); Eosinophils Percent Auto 2.2 % (0-4); Hematocrit 41.3 % (37.0-47.0); Imm Gran Abs Auto 0.02 X10*3/uL (0.00-0.03); Imm Gran Pct Auto 0.3 % (0.0-0.4); Lymphocytes Absolute Auto 1.6 X10*3/uL (1.2-4.9); Lymphocytes Percent Auto 27.1 % (20-40); Mean Corpuscular HGB Conc 33.9 g/dl (31.0-35.0); Mean Corpuscular Volume 88.6 fL (80.0-98.0); Mean Platelet Volume 10.7 fL (9.4-12.3); Monocytes Absolute Auto 0.3 X10*3/uL (0.1-1.2); Monocytes Percent Auto 5.7 % (2-11); Neutrophils Absolute Auto 3.8 x10*3/uL (2.0-8.3); Neutrophils Percent Auto 63.4 % (45-73); Platelet Count 379 X10*3/uL (160-400); Red Blood Count 4.66 X10*6/uL (4.20-5.50); Red Cell Distribution Width 12.9 % (11.0-16.0)
[2024-09-15 10:43] LABS: Appearance Urine Clear; Color Urine Yellow; Glucose Urine UA Negative (Negative); Leukocyte Esterase Urine Small (1+) (Negative); Nitrite Urine Negative (Negative); Specific Gravity - Urine 1.025 (1.005-1.025); UMIC TRIGGER UACC YES; Urine Blood Large (3+) (Negative); Urine Ketones Negative (Negative); Urine Protein Negative (Neg-Trace)
[2024-09-15 10:53] LABS: Alanine Aminotransferase 19 U/L (0-31); Albumin Level 4.3 g/dL (3.5-5.0); Alkaline Phosphatase 58 U/L (39-117); Anion Gap 10 (12-20); Aspartate Amino Transferase 23 U/L (5-31); Bilirubin Total 0.4 mg/dL (0.0-1.0); Blood Urea Nitrogen 8 mg/dL (9-16); Calcium 9.1 mg/dL (8.4-10.2); Carbon Dioxide 24 mmol/L (22-29); Chloride 108 mmol/L (96-108); Estimated Glomerular Filt Rate > 60; Glucose Random 94 mg/dL (60-115); Sodium 138 mmol/L (135-145); Total Protein 7.3 g/dL (6.5-8.0)
[2024-09-15 11:10] LABS: Bacteria Urine 1+ (None Seen); Hyaline Casts Urine 0-2 /LPF (0-2); UACC Culture Trigger YES; WBC Urine 0-5 /HPF (0-5)
[2024-09-15 11:22] LABS: Folate 11.6 ng/mL (> or = 4.0); TSH reflex Free T4 8.26 uIU/mL (0.32-4.0); Vitamin B12 249 pg/mL (200-900)
[2024-09-15 12:51] LABS: Free T4 (Free Thyroxine) 0.96 ng/dL (0.71-1.85)
[2024-09-18 18:23] LABS: Intrinsic Factor Antibodies Negative (Negative)
[2024-09-21 14:03] LABS: Parietal Cell Antibody <=20.0 Unit (<=20.0)
== END 2024-09-15 08:06 | disposition home or self-care (01) ==
LOC: HO.HMGCLDS 08:05
PROVIDERS: PCP Nurse Practitioner Family; Visit Provider Nurse Practitioner Family
DX: Z00.01 Encounter for general adult medical examination with abnormal findings (principal); R79.89 Other specified abnormal findings of blood chemistry; R76.8 Other specified abnormal immunological findings in serum; R05.3 Chronic cough; R82.90 Unspecified abnormal findings in urine
CPT/HCPCS: 36415; 80053; 81001; 82607; 82746; 83516; 84439; 84443; 85025; 86340; 87086

== ENCOUNTER 2024-09-15 15:38 | Outpatient (AMB) | payer OTHER, SELFPAY ==
[2024-09-15 15:45] VITALS: BP 114/66; PULSE 76; O2SAT 98; BMI 34.6
--- NOTE | 2024-09-15 15:45 | MHC.OFFVIS ---
Vital Signs 09/15/24 15:45 Height 5 ft 2 in Weight 189 lb 4 oz BMI 34.6 BP 114/66 Blood Pressure Location Rt brachial Position Sitting Pulse 76 Pulse Source Pulse Oximeter Pulse Oximetry (%) 98 Oxygen Delivery Method Room Air Intake Visit Reasons: chronic ough Allergies codeine Allergy (Unknown, Verified 09/15/24 15:48) nausea and vomiting HPI HPI chronic ough: Details: Lexie is a pleasant 34 year old female, former smoker, quit 2009 with less than 5 pack year history with underlying hypothyroidism and anxiety. She was initially referred by PCP for chronic cough that began in December 2023 after URI despite two courses of antibiotics and different ICS inhalers. She also noted COVID-19 infection in January and PFT suggestive of asthma. She was started on Breo with moderate improvement, coughing less, however dry continues on a daily basis with dyspnea on exertion. She was also given prednisone, initially with improvements however minimal improvements with second course. At the last visit, Breo was switched to Trelegy, however she could not tolerate it, resulting in nausea/gagging. She has switched back to Breo and continues to report daily dry cough, however less frequent then previous. She also continues with dyspnea on exertion. Today she presents to review labs. [facility] Medical History Pulmonary nodules Right flank pain Recurrent major depressive disorder in partial remission Bilateral headaches Irregular menses Acquired hypothyroidism Surgical History History of tooth extraction Family History Father Cholesterol embolus syndrome Substance use disorder Mental health disorder Mother Multiple sclerosis Mental health disorder Brother Substance use disorder Paternal Grandfather Substance use disorder Social History Household Members: Spouse and Children Housing: House Alcohol intake: former Patient Tobacco Use Status: Former Tobacco user Cigarette Packs Per Day: 0.5 Years Smoked: 8 e-Cigarette/Vaping Use: Never Used Second Hand Smoke Exposure: No (sometimes ) service: No Current occupational status: employed 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 Sexual orientation: Straight/Heterosexual Gender identity: Female Cognitive needs: No Hearing needs: No Vision needs: No Female Reproductive History Menstrual Age of Menarche: 10 Review of Systems Const Denies chills, Denies excessive sweating, Denies fever(s), Denies headache(s) and Denies night sweats Eyes Denies dry eyes, Denies irritation and Denies itchy eyes ENT Reports Normal hearing present, Denies headache(s), Denies nasal congestion, Denies nasal discharge, Denies post nasal drip and Denies sore throat Card Denies chest pain, Denies chest pain at rest, Denies chest pain with activity, Denies claudication, Denies leg edema, Denies orthopnea and Denies paroxysmal nocturnal dyspnea Resp Denies change in phlegm color, Denies chest congestion, Reports cough, Denies hemoptysis, Denies excessive phlegm production, Denies pain on inspiration, Denies pain with cough, Denies stridor and Denies wheezing Musc Denies myalgias Neuro Reports Normal hearing present and Denies headache(s) Endo Denies excessive sweating Doug/Lymph Denies lymphadenopathy Aller/Immun Denies itchy eyes, Denies seasonal rhinorrhea and Denies wheezing Physical Exam Vital Signs: Last Vital Signs Pulse 76 09/15/24 15:45 BP 114/66 09/15/24 15:45 Pulse Ox 98 09/15/24 15:45 Oxygen Delivery Method Room Air 09/15/24 15:45 BMI result Body Mass Index 34.6 Const General: cooperative, healthy appearing, comfortable, no acute distress, well developed and alert Nutritional Appearance: obese Orientation/consciousness: patient oriented x3 Limitations: no limitations HEENT Head: Yes normal to inspection, Yes normocephalic and Yes atraumatic Ears: hearing grossly normal bilaterally and external ears normal Eyes General: appearance normal, both eyes and all related structures Eyelids: Yes eyelids normal Sclerae: sclerae normal EOM: EOMs intact bilaterally Neck Neck: Yes normal visual inspection and Yes no lymphadenopathy Lymphatic: no lymphadenopathy noted Chest Chest palpation & inspection: normal inspection of the chest Resp Effort & Inspection: normal respiratory effort, able to speak in complete sentences, no audible wheezes, no stridor, not tachypneic, no tripod positioning and no use of accessory muscles Auscultation: clear to auscultation bilaterally Cardio Jugular venous distension: no JVD Rate: regular rate Rhythm: regular rhythm Skin Other: warm, dry General skin exam: no rashes or lesions noted Neuro General: patient oriented x3 Cranial nerves: Yes Normal hearing present Cognition (Neuro): normal cognition Gait exam (Neuro): Normal gait present Extrem General: Yes normal to inspection, Yes capillary refill normal, Yes no clubbing, cyanosis or edema and Yes no pedal edema Psych Appearance: grossly normal and well kempt Speech and movement: Normal speech and movement present and Clear speech present Affect: normal affect Attitude: cooperative Thought process: Normal thought process present Thought content: Normal thought content present Insight: Good insight present (Psych) Judgement: Good judgement present (Psych) Assessment & Plan Assessment & Plan (1) Chronic cough: Code(s): R05.3 - Chronic cough Category: Medical (2) Asthma: Code(s): J45.909 - Unspecified asthma, uncomplicated Category: Medical (3) Pulmonary nodules: Code(s): R91.8 - Other nonspecific abnormal finding of lung field Category: Medical Plan Lexie reports moderate control of respiratory symptoms with Breo, encouraged her to use albuterol MDI, which she has used on rare occasions. Will consider nebulized albuterol vs LAMA, as she could not tolerate Trelegy. She will call in 2-4 weeks if no improvement. Reviewed +YESSICA finding, mildly elevated and referral to rheum placed by PCP. Patient denies any symptoms suggestive of CTD at this time. Again reviewed chest CT ordered by PCP which revealed stable findings, and recommendation for [address] with IV contrast, order placed by PCP. All questions were answered and patient is in agreement of plan. Will follow up to review results or sooner if needed. Medications: Discontinued levothyroxine Discontinued Reason: Doctor's Order 137 mcg PO DAILY 90 days 90 tabs 0RF E03.9 - Hypothyroidism, unspecified Coding Level of Care Code Est Pt Level 4 (25768) Diagnoses Chronic cough R05.3 Asthma J45.909 Pulmonary nodules R91.8
== END 2024-09-15 16:15 | disposition home or self-care (01) ==
LOC: HO.HPSW 15:39
PROVIDERS: PCP Nurse Practitioner Family; Visit Provider Nurse Practitioner Family
DX: R05.3 Chronic cough (principal); J45.909 Unspecified asthma, uncomplicated; R91.8 Other nonspecific abnormal finding of lung field
CPT/HCPCS: 99214

== ENCOUNTER 2024-10-09 08:12 | Outpatient (AMB) | payer OTHER, SELFPAY ==
--- OUTSIDE RECORDS SUMMARY | 2024-10-09 08:17 | XMS_ITS | Clinical Summary ---
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 Active raNITIdine (ZANTAC) 150 MG tablet Take 1 tablet (150 mg total) by mouth 2 (two) times a day. 60 tablet 5 8 Active Additional Information Patient not taking.Reported on 01/24/2018 norethindrone-e thinyl estradiol (04/10 28 DAY, 21X7,) 1 mg-20 mcg (21)/75 mg (7) per tablet Take 1 tablet by mouth daily. 3 packet 4 8 Active Active Problems Problem Noted Date Diagnosed Date Irregular menses 01/24/2018 Dysmenorrhea 12/13/2017 Acquired hypothyroidism 06/23/2017 Assessment & Plan (01/24/2018 9:38 AM EST): TSH drawn today as patient has stopped medications and last draw in 08/06, will schedule f/u with PCP Autoimmune thyroiditis 06/23/2017 Obesity with body mass index 30 or greater 06/23 Depression with anxiety 06/23/2017 Hyperglycemia 06/23/2017 Vitamin D deficiency 06/23/2017 Bilateral headaches 06/23/2017 Immunizations Immunization Administration Dates Next Due DTP 06/05/1993, 0,1988,1988,1988 HPV, unspecified formulation 10/23/2008 HPV,quadrivalent 07/14/2010 Hib, unspecified formulation 11/29/1989 Influenza Quadrivalent Prese rvative Free IM 01/18/2013 Influenza, Unspecified Formulation 01/23/2010 MMR 08/05/2000,12/01/1989 PPD Test 01/12/2017 Polio, Unspecified Formulation 0,11/20/1989,1988,1988 Td (adult),2 Lf Tetanus Toxo id, PF, Adsorbed 08/05/2000 Tdap 04/10/2013 Family History Medical History Relation Comments No Known Problems Father Multiple sclerosis Mother Hypothyroidism Paternal Grandfather Relation Status Comments Father Alive Mother Alive Paternal Grandfather Alive Paternal Grandmother Social History Tobacco Use Types Packs/Day Years Used Date Smoking Tobacco: Former Smokeless Tobacco: Never Comments:quit 4 yrs ago Alcohol Use Standard Drinks/Week Comments Yes 0 (1 standard drink = 0.6 oz pur e alcohol) rarely Education Answer Date Recorded Are you interested in more education? Not on ayanna e 07/17/2022 Are you concerned about learning? Not on file 07/17/2022 No 07/17/2022 No 07/17/2022 Digital Access Answer Date Recorded No 08/17/2022 No 08/17/2022 Reliable internet access at home? Not on file 08/17/2022 Device with a working camera? 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 Not on file Not on file Not on ayanna e Last Filed Vital Signs Vital Sign Reading Time Taken Comments Blood Pressure 114/76 01/24/2018 9:07 AM EST Pulse 90 12/09/2017 9:23 AM EDT Temperature 36.5 C (97.7 F) 12/09/2017 9:23 AM EDT Respiratory Rate - - Oxygen Saturation 98% 12/09/2017 9:23 AM EDT Inhaled Oxygen Concentration - - Weight 82.1 kg (181 lb) 01/24/2018 9:07 AM EST Height 157.5 cm (5' 2 ) 01/24/2018 9:07 AM EST Body Mass Index 33.11 01/24/2018 9:07 AM EST Plan of Treatment Health Maintenance Due Date Last Done Comments DEPRESSION SCREENING 2000 SMOKING Hx and SMOKELESS TOBACCO SCREENING 2001 HEPATITIS C SCREENING 2006 HIV ONE-TIME SCREENING (18-6 5 YEARS) 2006 PAP SMEAR 11/01/2015 10/31/2012 COVID-19 VACCINE (2023-2 5 season) 2023 Adult Td,Tdap Booster 03/22/2025 03/22/2015 , 04/10/2013, 08/05/2000 HIB VACCINES Completed 11/29/1989 HEPATITIS A VACCINES Aged Out No long er eligible based on patient's age to complete this topic MENINGOCOCCAL VACCINES (ACWY) Aged Out No longer eligible based on patient's age to complete this topic MENINGOCOCCAL VACCINES (B) Aged Out N o longer eligible based on patient's age to complete this topic PNEUMOCOCCAL VACCINES (0-49 years) Aged Out No longer eligible b ased on patient's age to complete this topic Medical Devices Not on file Insurance [facility] Address: [phone] [place] [address] [facility] NON NSPG PCP [facility] [employer] NON NSPG PCP [place] [employer] [facility] [place] NON NSPG PCP [facility] [place] NON NSPG PCP S[facility] [employer] [employer] NON NSPG PCP [facility] [employer] [facility] [place] NON NSPG PCP S[facility] [employer] [employer] NON NSPG PCP [facility] NON NSPG [facility] Care Teams Fender Finisher Relationship Specialty Start Date End Date Pcp, Unknown PCP - General 09/17/18 Additional Source Comments The information contained in this document represents components of the legal health record. It is not the complete legal health record.[facility]
[2024-10-09 08:26] VITALS: BP 120/76; PULSE 82; O2SAT 98; BMI 34.0
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
== END 2024-10-09 09:02 | disposition home or self-care (01) ==
LOC: HO.HSMS 08:13
PROVIDERS: PCP Nurse Practitioner Family; Visit Provider Psychiatry & Neurology Neurology
DX: Z82.0 Family history of epilepsy and other diseases of the nervous system (principal); R06.83 Snoring; G47.10 Hypersomnia, unspecified; R51.9 Headache, unspecified; G89.29 Other chronic pain; R42 Dizziness and giddiness
CPT/HCPCS: 99204; G2211

== ENCOUNTER 2024-10-12 11:10 | Outpatient (REF) | payer OTHER, SELFPAY ==
--- NOTE | ~2024-10-12 | US_ITS ---
EXAMINATION: US THYROID HISTORY: R79.89 - Other specified abnormal findings of blood chemistry TECHNIQUE: Real-time grayscale ultrasound imaging was performed and images were reviewed. COMPARISON: Correlation is made with a chest CT dated 08/01/2024. FINDINGS: SIZE: The right thyroid lobe measures 3.9 x 1.3 x 1.0 cm. The left thyroid lobe measures 3.7 x 1.2 x 1.0 cm. The isthmus measures 4 mm. FLOW: Flow to the gland is normal. ECHOGENICITY: The echotexture of the gland is heterogeneous. NODULES: No nodules are identified. US/US thyroid IMPRESSION: Heterogeneous thyroid echotexture. No nodules are identified. ACR TI-RADS Guidelines TR1 (0 points): Benign. No follow-up or biopsy required TR2 (2 points): Not Suspicious. No biopsy or follow up indicated TR3 (3 points): Mildly Suspicious. FNA if >= 2.5 cm, Follow if >= 1.5 cm TR4 (4-6 points): Moderately Suspicious. FNA if >= 1.5 cm, Follow if >= 1.0 cm TR5 (>=7 points): Highly Suspicious. FNA if >= 1.0 cm, Follow if >= 0.5 cm Electronically signed by: José Miguel Burkett MD 10/12/2024 11:46 AM EDT
--- OUTSIDE RECORDS SUMMARY | 2024-10-12 12:04 | XMS_ITS | Clinical Summary ---
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 NON NSPG PCP [place] [employer] [place] NON NSPG PCP [place] NON [place]SP[place] PCP [place] [facility] [place] NON NSPG PCP [place] [employer] [employer] [place] NON NSPG PCP [place] [place] NON NSPG PCP S[place] [employer] [employer] [place] NON NSPG PCP [facility] [facility] NON NSPG PCP [facility] Care Teams Fuel Tank Sealer And Tester Relationship Specialty Start Date End Date Pcp, Unknown PCP - General 09/17/18 Additional Source Comments The information contained in this document represents components of the legal health record. It is not the complete legal health record.[facility]
== END 2024-10-12 11:11 | disposition home or self-care (01) ==
LOC: HO.HMGCX 11:10
PROVIDERS: PCP Nurse Practitioner Family; Visit Provider Nurse Practitioner Family
DX: R79.89 Other specified abnormal findings of blood chemistry (principal)
CPT/HCPCS: 76536

== ENCOUNTER → 2024-10-12 11:13 | Outpatient (BNV) | payer OTHER, SELFPAY | PROVIDERS: PCP Nurse Practitioner Family; Visit Provider Radiology Diagnostic Radiology | DX: E07.89 Other specified disorders of thyroid (principal) | CPT/HCPCS: 76536 ==

== ENCOUNTER 2024-10-28 13:24 | Outpatient (REF) | payer OTHER, SELFPAY ==
--- NOTE | ~2024-10-28 | MR_ITS ---
EXAMINATION: MR BRAIN WITHOUT CONTRAST CLINICAL INFORMATION: Dizziness. COMPARISON: None available. TECHNIQUE: MRI of the brain was obtained using routine sequences without contrast. FINDINGS: There is a 5 mm descensus of the cerebellar tonsils below foramen magnum. No restricted diffusion. No acute intracranial hemorrhage, mass effect, midline shift, hydrocephalus or herniation. Perez-white matter differentiation is normal. 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 Flow-void signal within the main cerebral vessels is normal. No signal abnormality or mass effect in the posterior cranial fossa. Sellar/suprasellar region demonstrated no signal abnormality or masses. MR/MR head/brain wo con IMPRESSION: Borderline Chiari type I malformation. Electronically signed by: Toño Victoria MD 10/30/2024 07:51 AM EDT
--- OUTSIDE RECORDS SUMMARY | 2024-10-28 13:32 | XMS_ITS | Clinical Summary ---
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 Not on file Not [...] topic Medical Devices Not on file Insurance [facility] NON NSPG PCP [place] [employer] [place] NON NSPG PCP [place] [employer] [employer] [place] NON NSPG PCP [place] [employer] [place] NON NSPG PCP [place] [employer] [place] NON NSPG PCP [place] [facility] [place] NON NSPG PCP [place] [facility] [facility] [place] NON NSPG PCP [facility] [facility] NON NSPG PCP [facility] Care Teams Hadoop Infrastructure Architect Relationship Specialty Start Date End Date Pcp, Unknown PCP - General 09/17/18 Additional Source Comments The information contained in this document represents components of the legal health record. It is not the complete legal health record.[facility]
== END 2024-10-28 13:25 | disposition home or self-care (01) ==
LOC: HO.MRI 13:24
PROVIDERS: PCP Nurse Practitioner Family; Visit Provider Psychiatry & Neurology Neurology
DX: R42 Dizziness and giddiness (principal); H53.8 Other visual disturbances; Z84.89 Family history of other specified conditions
CPT/HCPCS: 70551

== ENCOUNTER → 2024-10-28 13:35 | Outpatient (BNV) | payer OTHER, SELFPAY | PROVIDERS: PCP Nurse Practitioner Family; Visit Provider Radiology Diagnostic Radiology | DX: R42 Dizziness and giddiness (principal) | CPT/HCPCS: 70551 ==

== ENCOUNTER 2024-11-02 10:52 | Outpatient (AMB) | payer OTHER, SELFPAY ==
--- NOTE | 2024-11-02 11:24 | A.OFFVIS_ITS ---
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 Bobbin Marker concerns: fatigued with stress, low libido. Regular monthly menses. Currently is sexually active, vasectomy. She denies vaginal itching or irritation. STI screening offered; she decline. She tries to eat healthy and stays active with exercise. Denies family history of breast, ovarian or colon cancer. Last pap smear 2018, negative. [facility] Medical History Vertigo Chronic headaches Hypersomnia Snoring Pulmonary nodules Right flank pain Recurrent major depressive disorder in partial remission Bilateral headaches Irregular menses Acquired hypothyroidism Surgical History History of tooth extraction Family History Father Cholesterol embolus syndrome Substance use disorder Mental health disorder Mother Multiple sclerosis Mental health disorder Brother Substance use disorder Paternal Grandfather Substance use disorder Social History Household Members: Spouse and Children Housing: House Alcohol intake: former Patient Tobacco Use Status: Former Tobacco user Cigarette Packs Per Day: 0.5 Years Smoked: 8 e-Cigarette/Vaping Use: Never Used Second Hand Smoke Exposure: No (sometimes ) service: No Current occupational status: employed 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 Sexual orientation: Straight/Heterosexual Gender identity: Female Cognitive needs: No Hearing needs: No Vision needs: No Female Reproductive History Menstrual Age of Menarche: 10 Duration of menses: 6-7 days Date of last menstrual period: 10/18/24 control method: none Total pregnancies: 2 Full term: 2 Date of last pap smear: 12/29/18 (negative pap smear) History of abnormal pap smear: No Date of Mammogram: 01/27/23 (bi rad 1) Review of Systems Const All systems reviewed & are unremarkable except as noted in HPI and below Reports as per HPI Eyes Reports no additional complaints ENT Reports no additional complaints Card Reports no additional complaints Resp Reports no additional complaints GI Reports as per HPI and Reports no additional complaints Reports as per HPI Musc Reports no additional complaints Skin/Breast Reports as per HPI Neuro Reports no additional complaints Psych Reports no additional complaints Endo Reports no additional complaints Doug/Lymph Reports no additional complaints Aller/Immun Reports no additional complaints Physical Exam Vital Signs: Last Vital Signs BP 120/74 11/02/24 11:27 BMI result Body Mass Index 34.0 Const General: cooperative, healthy appearing, no acute distress, well developed and alert Orientation/consciousness: patient oriented x3 HEENT Head: Yes normal to inspection Eyes General: appearance normal, both eyes and all related structures Neck Neck: Yes normal visual inspection Thyroid: Thyroid normal Chest Chest palpation & inspection: normal inspection of the chest and other (no puckering, dimpling, peau de orange, retraction, discharge, masses) Breast/axilla inspection: normal inspection of the breasts Breast/axilla palpation: normal palpation of the breasts Resp Effort & Inspection: normal respiratory effort GI Inspection: Yes normal to inspection Palpation (GI): Soft to palpation Rectal Exam - Female: deferred General: Yes bladder normal to palpation External Female Exam: normal external appearance and normal appearance of the urethra Speculum Exam - Vagina: normal appearance of the vagina, normal palpation and normal vaginal discharge Speculum Exam - Cervix: normal appearance of the cervix and normal palpation Bimanual exam- vagina & uterus: normal bimanual exam, normal palpation, uterine size normal, bladder normal to palpation, normal palpation and non-tender Bimanual Exam- Adnexa, other: no masses Skin General skin exam: no rashes or lesions noted Rashes: no rashes Neuro General: patient oriented x3 Cognition (Neuro): normal cognition Extrem General: Yes normal to inspection Psych Attitude: cooperative Thought process: Normal thought process present Assessment & Plan Assessment & Plan (1) Encounter for well woman exam with routine gynecological exam: Code(s): Z01.419 - Encounter for gynecological examination (general) (routine) without abnormal findings Category: Medical Plan Discussed: Current recommendations for pap smears per ASCCP guidelines. Pap obtained today. Breast awareness and periodic breast exams. Maintain a healthy lifestyle including a well balanced diet and routine exercise. Low libido, self-help measures, resources in the community, counseling, book/ l iterature references, frequent causes. The patient expressed understanding and agreement with the plan of care. Follow up p.r.n. Patient verbalizes understanding and agrees to the plan of care. She was given opportunity to ask questions and all questions were answered to the best of my ability. RTO in one year for annual earrings fabricator examination. This note is constructed using voice recognition software. While every effort has been made to ensure accuracy, industrial waste treatment technician errors may have been included. Orders: Orders Pap Smear Today Z01.419 - Encounter for gynecological examination (general) (routine) without abnormal findings HPV High risk Today Z01.419 - Encounter for gynecological examination (general) (routine) without abnormal findings Coding Level of Care Code Est Pt Prev Care 18-39y(79702) Diagnoses Encounter for well woman exam with routine gynecological exam Z01.419
[2024-11-02 11:27] VITALS: BP 120/74; BMI 34.0
== END 2024-11-02 11:54 | disposition home or self-care (01) ==
LOC: HO.HWS 10:53
PROVIDERS: PCP Nurse Practitioner Family; Visit Provider Advanced Practice Midwife
DX: Z01.419 Encounter for gynecological examination (general) (routine) without abnormal findings (principal)
CPT/HCPCS: 99395; 99459

== ENCOUNTER 2024-11-02 10:52 | Outpatient (REF) | payer OTHER, SELFPAY | END 2024-11-02 10:53 | disposition home or self-care (01) | LOC: HO.LNP 10:52 | PROVIDERS: PCP Nurse Practitioner Family; Visit Provider Advanced Practice Midwife | DX: Z01.419 Encounter for gynecological examination (general) (routine) without abnormal findings (principal); Z79.899 Other long term (current) drug therapy | CPT/HCPCS: 87626; 88175 ==

== ENCOUNTER 2024-12-08 15:40 | Outpatient (AMB) | payer OTHER, SELFPAY ==
--- OUTSIDE RECORDS SUMMARY | 2024-12-08 15:43 | XMS_ITS | Clinical Summary ---
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 Not on file Not [...] 5 YEARS) 2006 PAP SMEAR 11/01/2015 10/31/2012 INFLUENZA VACCINE (#1) 2024 3, 01/23/2010 COVID-19 VACCINE (2023-2 5 season) 2024 Adult Td,Tdap Booster 03/22/2025 03/22/2015 , 04/10/2013, [...] topic Medical Devices Not on file Insurance [facility] NON NSPG PCP [place] [facility] [address] [place], [place] [address]ENSE NON NSPG PCP [facility] [employer] [facility] [address] [place] [address] NON NSPG PCP [facility] [employer] [address] [place], [place] [address]ENSE NON NSPG PCP [facility] [place] [place] [place] [address] NON NSPG PCP [facility] [employer] [place] [place] [address] NON NSPG PCP [facility] [address] [place], [place] [address]ENSE NON NSPG PCP [place] [facility] NON NSPG PCP [facility] Care Teams Mental Health Assistant Relationship Specialty Start Date End Date Pcp, Unknown PCP - General 09/17/18 Additional Source Comments The information contained in this document represents components of the legal health record. It is not the complete legal health record.[facility]
--- NOTE | 2024-12-08 15:46 | MHC.OFFVIS ---
Vital Signs 12/08/24 15:47 Height 5 ft 2 in Weight 187 lb 8 oz BMI 34.3 BP 116/68 Blood Pressure Location Rt brachial Position Sitting Pulse 85 Pulse Source Pulse Oximeter Pulse Oximetry (%) 98 Oxygen Delivery Method Room Air Intake Visit Reasons: chronic cough Allergies codeine Allergy (Unknown, Verified 12/08/24 15:51) nausea and vomiting HPI HPI chronic cough: Details: Lexie is a pleasant 34 year old female, former less than 5 pack year smoker, quit 2009 with underlying asthma, hypothyroidism and anxiety. Since the last visit, patient reports significant improvement in frequency of cough and had discontinued Breo. 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 She has since restarted Breo however suboptimal effect. She denies fevers or chills, endorses intermittent chest congestion. Of note, patient with upcoming chest CT to be scheduled in January to assess resolution of ggo as well as stability of lymphadnopathy. [facility] Medical History Vertigo Chronic headaches Hypersomnia Snoring Pulmonary nodules Right flank pain Recurrent major depressive disorder in partial remission Bilateral headaches Irregular menses Acquired hypothyroidism Surgical History History of tooth extraction Family History Father Cholesterol embolus syndrome Substance use disorder Mental health disorder Mother Multiple sclerosis Mental health disorder Brother Substance use disorder Paternal Grandfather Substance use disorder Social History Household Members: Spouse and Children Housing: House Alcohol intake: former Patient Tobacco Use Status: Former Tobacco user Cigarette Packs Per Day: 0.5 Years Smoked: 8 e-Cigarette/Vaping Use: Never Used Second Hand Smoke Exposure: No (sometimes ) service: No Current occupational status: employed 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 Sexual orientation: Straight/Heterosexual Gender identity: Female Cognitive needs: No Hearing needs: No Vision needs: No Female Reproductive History Menstrual Age of Menarche: 10 Review of Systems Const Denies chills, Denies excessive sweating, Denies fever(s), Denies headache(s) and Denies night sweats Eyes Denies dry eyes, Denies irritation and Denies itchy eyes ENT Reports Normal hearing present, Denies headache(s), Denies nasal congestion, Denies nasal discharge, Denies post nasal drip and Denies sore throat Card Denies chest pain, Denies chest pain at rest, Denies chest pain with activity, Denies claudication, Denies leg edema, Denies orthopnea and Denies paroxysmal nocturnal dyspnea Resp Denies excessive phlegm production, Denies pain on inspiration, Denies pain with cough and Denies stridor Musc Denies myalgias Neuro Reports Normal hearing present and Denies headache(s) Endo Denies excessive sweating Doug/Lymph Denies lymphadenopathy Aller/Immun Denies itchy eyes and Denies seasonal rhinorrhea Physical Exam Vital Signs: Last Vital Signs Pulse 85 12/08/24 15:47 BP 116/68 12/08/24 15:47 Pulse Ox 98 12/08/24 15:47 Oxygen Delivery Method Room Air 12/08/24 15:47 BMI result Body Mass Index 34.3 Const General: cooperative, healthy appearing, comfortable, no acute distress, well developed and alert Nutritional Appearance: obese Orientation/consciousness: patient oriented x3 Limitations: no limitations HEENT Head: Yes normal to inspection, Yes normocephalic and Yes atraumatic Ears: hearing grossly normal bilaterally and external ears normal Eyes General: appearance normal, both eyes and all related structures Eyelids: Yes eyelids normal Sclerae: sclerae normal EOM: EOMs intact bilaterally Neck Neck: Yes normal visual inspection and Yes no lymphadenopathy Lymphatic: no lymphadenopathy noted Chest Chest palpation & inspection: normal inspection of the chest Resp Other: post exhalation cough Effort & Inspection: normal respiratory effort, able to speak in complete sentences, no audible wheezes, Actively coughing, no stridor, not tachypneic, no tripod positioning and no use of accessory muscles Auscultation: diminished lung sounds Cardio Jugular venous distension: no JVD Rate: regular rate Rhythm: regular rhythm Skin Other: warm, dry General skin exam: no rashes or lesions noted Neuro General: patient oriented x3 Cranial nerves: Yes Normal hearing present Cognition (Neuro): normal cognition Gait exam (Neuro): Normal gait present Extrem General: Yes normal to inspection, Yes capillary refill normal, Yes no clubbing, cyanosis or edema and Yes no pedal edema Psych Appearance: grossly normal and well kempt Speech and movement: Normal speech and movement present and Clear speech present Affect: normal affect Attitude: cooperative Thought process: Normal thought process present Thought content: Normal thought content present Insight: Good insight present (Psych) Judgement: Good judgement present (Psych) Assessment & Plan Assessment & Plan (1) Chronic cough: Code(s): R05.3 - Chronic cough Category: Medical (2) Asthma: Code(s): J45.909 - Unspecified asthma, uncomplicated Category: Medical (3) Pulmonary nodules: Code(s): R91.8 - Other nonspecific abnormal finding of lung field Category: Medical Plan Will treat bronchitic symptoms with azithromycin and prednisone. She is aware to call if symptoms do not improve. Also advised continued use of Breo and albuterol MDI. Again reviewed chest CT ordered by PCP which revealed stable findings, and recommendation for [address] with IV contrast, order placed by PCP. Patient has yet to receive call to schedule, will have staff look into this. All questions were answered and patient is in agreement of plan. Will follow up to review results of CT or sooner if needed. Medications: New azithromycin For 250 mg dose pack: take 500 mg today (day 1), then 250 mg for 4 days (days 2-5) PO 6 tabs 0RF prednisone 40 mg (2 x 20 mg) PO DAILY 10 tabs 0RF Refilled fluticasone furoate-vilanterol 200-25 mcg/dose (Breo Ellipta) 1 inh inhalation DAILY 60 ea 3RF Coding Level of Care Code Est Pt Level 4 (89564) Diagnoses Chronic cough R05.3 Asthma J45.909 Pulmonary nodules R91.8
[2024-12-08 15:47] VITALS: BP 116/68; PULSE 85; O2SAT 98; BMI 34.3
== END 2024-12-08 16:12 | disposition home or self-care (01) ==
LOC: HO.HPSW 15:41
PROVIDERS: PCP Nurse Practitioner Family; Visit Provider Nurse Practitioner Family
DX: R05.3 Chronic cough (principal); J45.909 Unspecified asthma, uncomplicated; R91.8 Other nonspecific abnormal finding of lung field
CPT/HCPCS: 99214

== ENCOUNTER 2025-01-22 15:12 | Outpatient (REF) | payer OTHER, SELFPAY ==
--- NOTE | ~2025-01-22 | CT_ITS ---
EXAMINATION: CT CHEST WITH CONTRAST CLINICAL INFORMATION: Other nonspecific abnormal finding of lung field. Follow-up nodules. COMPARISON: 08/01/2024 CT chest. TECHNIQUE: Multidetector volumetric CT imaging of the chest was obtained after the administration of 60 mL of Omnipaque 350 intravenous contrast without immediate adverse reactions. Axial MIP volume rendering provided. Sagittal and coronal reformatted images were obtained. This CT examination was performed using dose optimization techniques as appropriate, variously including the following: *Automated exposure control *Adjustment of mA and/or kV according to patient size (this includes techniques or standardized protocols for targeted exams where dose is matched to indication/reason for exam; i.e. extremities or head) *Use of iterative reconstruction technique FINDINGS: NODULES: 5 mm nodule right lung apex, unchanged (series 5, image 32). 5 mm nodule in the right middle lobe abutting the minor fissure is unchanged (series 5, image 73). There are a group of centrilobular nodules in the right upper lobe medially, also unchanged (series 5, image 61). There is a 4 mm nodule right middle lobe (series 5, image 82), unchanged. There is a 3 mm subpleural nodule in the left posterior costophrenic sulcus (series 5, image 124), unchanged. No new or enlarging pulmonary nodule. LUNGS: The lungs are well inspired. There is mild stable scarring in the superior right middle lobe distribution, unchanged. Lungs are otherwise clear. Small airways are normal. There is no effusion or pneumothorax. MEDIASTINUM: The partially imaged thyroid is grossly normal. There is no mediastinal mass. Borderline enlarged hilar lymph nodes are stable. The 7 mm right paratracheal lymph node is unchanged. The aorta is normal in caliber and course. The main pulmonary artery is normal in caliber. The heart size is normal. There is no pericardial effusion. The central airways are patent. No esophageal abnormality is noted. AXILLA/CHEST WALL: No masses or abnormal lymph nodes present. UPPER ABDOMEN: Hepatic dome hypodensities previously mentioned are unchanged and stable, favoring benignity. Imaged upper abdominal contents otherwise normal. OSSEOUS STRUCTURES: No suspicious lytic or blastic bone lesions. CT/CT chest w IV con IMPRESSION: 1. A few scattered pulmonary nodules measuring up to 5 mm are stable, and benign. There are no new or enlarging pulmonary nodules present. 2. Mildly prominent hilar lymph nodes are also stable, and benign. These are consistent with reactive etiology. 3. Stable nonspecific subcentimeter hypodensities involving the dome of the liver, unchanged. Electronically signed by: Tc Yates MD 01/22/2025 04:12 PM ADILSON MARQUEZ
[2025-01-22] MEDS: iohexoL 350 MG/ML 100 ML INFUS..BTL IV (15:51)
--- OUTSIDE RECORDS SUMMARY | 2025-01-22 16:33 | XMS_ITS | Clinical Summary ---
Author Organization 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 [address] [place] [address] [facility] NON NSPG PCP [facility] [address] [place], [place] [address]ENSE NON NSPG PCP [facility] [place] [address] NON NSPG PCP [facility] [address] [place], [place] [address]ENSE NON NSPG PCP [facility] [place] [address] NON NSPG PCP [facility] [place] [address] NON NSPG PCP [facility] [address] [place], [place] [address]ENSE NON NSPG PCP [facility] NON NSPG PCP AMY H[facility] Care Teams Television Schedule Coordinator Relationship Specialty Start Date End Date Pcp, Unknown PCP - General 09/17/18 Additional Source Comments The information contained in this document represents components of the legal health record. It is not the complete legal health record.[facility]
== END 2025-01-22 15:13 | disposition home or self-care (01) ==
LOC: HO.CT 15:12
PROVIDERS: PCP Nurse Practitioner Family; Visit Provider Nurse Practitioner Family
DX: R91.8 Other nonspecific abnormal finding of lung field (principal)
CPT/HCPCS: 71260; Q9967

== ENCOUNTER → 2025-01-22 15:13 | Outpatient (BNV) | payer OTHER, SELFPAY | PROVIDERS: PCP Nurse Practitioner Family; Visit Provider Radiology Diagnostic Radiology | DX: R91.8 Other nonspecific abnormal finding of lung field (principal) | CPT/HCPCS: 71260 ==

== ENCOUNTER 2025-02-08 07:44 | Outpatient (REF) | payer OTHER, SELFPAY ==
[2025-02-08 13:55] LABS: Folate 14.6 ng/mL (> or = 4.0); Vitamin B12 259 pg/mL (200-900)
== END 2025-02-08 07:45 | disposition home or self-care (01) ==
LOC: HO.HKASLDS 07:44
PROVIDERS: PCP Nurse Practitioner Family; Visit Provider Psychiatry & Neurology Neurology
DX: G47.10 Hypersomnia, unspecified (principal); G89.29 Other chronic pain; R51.9 Headache, unspecified; R06.83 Snoring; R42 Dizziness and giddiness; E03.9 Hypothyroidism, unspecified; R79.89 Other specified abnormal findings of blood chemistry
CPT/HCPCS: 36415; 82607; 82746; 84443

== ENCOUNTER 2025-02-08 07:44 | Outpatient (AMB) | payer OTHER, SELFPAY ==
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
[2025-02-08 07:47] VITALS: BP 120/82; PULSE 88; O2SAT 98; BMI 33.1
--- OUTSIDE RECORDS SUMMARY | 2025-02-08 07:48 | XMS_ITS | Clinical Summary ---
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 Not on file [...] topic Medical Devices Not on file Insurance [facility] NON NSPG PCP [place] [facility] [address] [place], [place] [address]ENSE NON NSPG PCP [facility] [place] [address] NON NSPG PCP [facility] [address] [place], [place] [address]ENSE NON NSPG PCP [facility] [place] [address] NON NSPG PCP [facility] [place] [address] NON NSPG PCP [facility] [address] [place], [place] [address]ENSE NON NSPG PCP [facility] NON NSPG PCP [facility] Care Teams Vamp Seamer Relationship Specialty Start Date End Date Pcp, Unknown PCP - General 09/17/18 Additional Source Comments The information contained in this document represents components of the legal health record. It is not the complete legal health record.[facility]
== END 2025-02-08 08:13 | disposition home or self-care (01) ==
LOC: HO.HSMS 07:45
PROVIDERS: PCP Nurse Practitioner Family; Visit Provider Psychiatry & Neurology Neurology
DX: R06.83 Snoring (principal); Z82.0 Family history of epilepsy and other diseases of the nervous system; G47.10 Hypersomnia, unspecified; R51.9 Headache, unspecified; G89.29 Other chronic pain; R42 Dizziness and giddiness
CPT/HCPCS: 99214; G2211

== ENCOUNTER 2025-03-08 09:33 | Outpatient (AMB) | payer OTHER, SELFPAY ==
[2025-03-08 10:06] VITALS: BP 110/70; PULSE 87; RESP 16; O2SAT 98; BMI 32.2
--- NOTE | 2025-03-08 10:06 | A.OFFPC_ITS ---
Vital Signs 03/08/25 10:06 Height 5 ft 2 in Weight 176 lb BMI 32.2 BP 110/70 Blood Pressure Location Lt brachial Position Sitting Respiration 16 Pulse 87 Pulse Source Pulse Oximeter Pulse Oximetry (%) 98 Oxygen Delivery Method Room Air Intake Visit Reasons: Annual PE Health Promotion Manager Required: No Accompanied by: Self / Same As Patient Allergies codeine Allergy (Unknown, Verified 03/08/25 10:24) nausea and vomiting Medication List - Last Reconciled 03/08/25 by NAHEED McdowellP- albuterol sulfate 90 mcg/actuation 2 inhalations inhalation Q4-6H PRN bupropion HCl XL (Wellbutrin XL) 150 mg PO QAM 30 days fluticasone furoate-vilanterol 200-25 mcg/dose (Breo Ellipta) 1 inh inhalation DAILY levothyroxine 150 mcg PO DAILY magnesium oxide 400 mg PO DAILY Tobacco use date assessed: 03/08/25 Dental Screening Dental Screen Date: 03/08/25 Did you have a dental visit in the last 12 months?: No Did you have a dental problem in the last 6 months where you did not have access to dental care?: Yes Was dental information given to patient?: Patient has dentist HPI Annual PE HPI Details History of Present Illness The patient is a 34-year-old female presenting for a physical examination. She has an ongoing cough, for which she is followed by a intelligence senior sergeant, and denies significant shortness of breath. A future appointment with rheumatology is also scheduled. A prior chest CT revealed upper lobe nodules, hilar lymph nodes, and subcentimeter hypodensities at the dome of the liver that were too small to characterize. A more recent CT of the chest in January showed the pulmonary nodules and hilar lymph nodes were stable and benign, and the liver lesions were unchanged in size. Health Maintenance The patient is due for a routine gynecological examination and Pap smear. Social History Review of Systems - Psychiatric: Denies suicidal or homici alvin ideation. - Respiratory: Reports a cough. Denies s hortness of breath. - Cardiovascular: Denies chest pain. - Gastrointestinal: Denies abdominal yuliana n, hematochezia, constipation, or diarrhea. Physical Exam General: Cooperative, healthy appearing, comfortable, no acute distress and well developed Orientation: Patient oriented x3 Limitations: No limitations Head: Normal to inspection Ears: Hearing grossly normal bilaterally Nose: Normal external nose present Face and sinus: Normal facial exam Eyes: Appearance normal, both eyes and all related structures Neck: Normal visual inspection and Yes full ROM Respiratory: Normal respiratory effort and able to speak in complete sentences. Clear to auscultation bilaterally. Patient has a cough. Cardiovascular: Regular rate and rhythm. Normal S1 and S2 GI: Normal to inspection. Soft to palpation and nontender. Skin: No rashes or lesions noted Neuro: Patient oriented x3 Extremities: Normal to inspection Results - Chest CT (prior): Showed upper lobe no dules and hilar lymph nodes. - Chest CT (January): Revealed stable a nd benign-appearing pulmonary nodules and hilar lymph nodes. - Abdominal imaging from CT: Showed subc entimeter hypodensities at the dome of the liver, which were too small to characterize and remained unchanged in size on the most recent scan. Plan 1. Chronic Cough The patient has an ongoing cough and is being followed by a intelligence senior sergeant, with a future referral to rheumatology. She has been advised to continue her follow- up with pulmonology. 2. Pulmonary Nodules And Hilar Lymphaden opathy A chest CT in January showed that the patient's few pulmonary nodules and hilar lymph nodes are stable and appear benign. The plan is to continue follow-up with her intelligence senior sergeant for ongoing monitoring. 3. Liver Lesions The patient has subcentimeter hypodensities at the dome of the liver that are too small to characterize on CT. These lesions are noted to be unchanged in size. An ultrasound will be ordered to monitor these lesions. Discussion Notes I discussed with the patient that her recent chest CT from January showed stable and benign-appearing pulmonary nodules and hilar lymph nodes. I encouraged her to continue follow-up with her intelligence senior sergeant for these findings and her chronic cough. Regarding the liver lesions, which are also unchanged but remain too small to characterize on CT, I informed her that I will order an ultrasound for further surveillance. The physical exam was benign. Patient Instructions - Continue to see your lung specialist ( intelligence senior sergeant) for your ongoing cough and to monitor the spots on your lungs. - We will order an ultrasound of your li giovanna to get a better look at the small spots found on your CT scan. - Please schedule an appointment with conchita sousa contracting analyst (MEDICAL ASSISTANT INTERNAL MEDICINE) for a Pap smear. - Keep your upcoming appointment with jesusita saucedo senior education specialist. 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 Bilateral headaches Irregular menses Acquired hypothyroidism Surgical History History of tooth extraction Family History Father Cholesterol embolus syndrome Substance use disorder Mental health disorder Mother Multiple sclerosis Mental health disorder Brother Substance use disorder Paternal Grandfather Substance use disorder Social History Household Members: Spouse and Children Housing: House Alcohol intake: former Patient Tobacco Use Status: Former Tobacco user Cigarette Packs Per Day: 0.5 Years Smoked: 8 e-Cigarette/Vaping Use: Never Used Second Hand Smoke Exposure: No (sometimes ) service: No Current occupational status: employed 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 1. Little interest or pleasure in doing things: several days 2. Feeling down, depressed, or hopeless: several days 3. Trouble falling or staying asleep, or sleeping too much: not at all 4. Feeling tired or having little energy: more than half the days 5. Poor appetite or overeating: several days 6. Feeling bad about yourself - or that you are a failure or have let yourself or your family down: several days 7. Trouble concentrating on things, such as reading the newspaper or watching television: several days 8. Moving or speaking so slowly that other people could have noticed. Or the opposite - being so fidgety or restless that you have been moving around a lot more than usual: not at all 9. Thoughts that you would be better off or of hurting yourself in some way: not at all Total score: 7 Depression Screening Interpretation: Negative Depression Screening Done: Yes 40250 - PHQ-9 Billing: Yes Source: Developed by Drs. José Miguel Arnett, Jayla Lagos, Tang Luque and colleagues, with an educational estefania from [employer]. Thrive Questionnaire Date Thrive assessed: 08/29/24 I am a: Patient What is your living situation today?: I have a steady place to live Within the past 12 months, did the food you bought not last and you didn't have the money to get more?: Sometimes True Within the past 12 months, did you worry whether your food would run out before you got money to buy more?: Sometimes True Do you have trouble paying for medicines?: No Do you have trouble getting transportation to medical appointments?: No Do you have trouble paying your heating and electricity bill?: No Do you have trouble taking care of your child, family member or friend?: No Do you have trouble with day-to-day activities such as bathing, preparing meals, shopping, managing finances, etc.?: No Are you currently unemployed and looking for a job?: No Are you interested in more education?: No Please select the resources that you would like help with: Food Currently or been in a relationship where the following occur: No concerns reported THRIVE Score: 2 AUDIT C Alcohol Use Questionnaire (AUDIT-C) 2. How many drinks containing alcohol do you have on a typical day when you are drinking?: 1 or 2 Total Score: 0 AISHA-7 AMB Questionnaire AIHSA-7 Date AISHA - 7 assessed: 09/05/24 Source: Developed by Drs. José Miguel Arnett, Jayla Lagos, Tang Luque and colleagues, with an educational estefania from [employer]. Physical exam (Primary Care) Vital Signs: Last Vital Signs Pulse 87 03/08/25 10:06 Resp 16 03/08/25 10:06 BP 110/70 03/08/25 10:06 Pulse Ox 98 03/08/25 10:06 Oxygen Delivery Method Room Air 03/08/25 10:06 BMI result Body Mass Index 32.2 Tobacco/Smoking Status: Tobacco use Status Tobacco use date assessed 03/08/25 03/08/25 10:11 Patient Tobacco Use Status Former Tobacco user 03/08/25 10:11 e-Cigarette/Vaping Use Never Used 03/08/25 10:11 PHQ-9: PHQ-9 Score PHQ-9: Total score 7 03/08/25 10:11 Depression Screening Interpretation: Negative Thrive Assessment: Date of Thrive Assessment Date Thrive assessed 08/29/24 03/08/25 10:11 Currently or been in a relationship where the following occur: No concerns reported Coding Level of Care Code Est Pt Level 3 (96774) Est Pt Prev Care 18-39y(81033) Diagnoses Encounter for routine adult physical exam with abnormal findings Z. Asthma J45.909 Pulmonary nodules R91.8 Chronic cough R05.3 Liver lesion K76.9 Vitamin D deficiency E55.9 Additional Codes PHQ-9 - 61917 - PHQ-9 Billing: Yes ([id number]) Assessment & Plan Assessment & Plan (1) Encounter for routine adult physical exam with abnormal findings: Code(s): Z. - Encounter for general adult medical examination with abnormal findings Category: Medical (2) Asthma: Code(s): J45.909 - Unspecified asthma, uncomplicated Category: Medical (3) Pulmonary nodules: Code(s): R91.8 - Other nonspecific abnormal finding of lung field Category: Medical (4) Chronic cough: Code(s): R05.3 - Chronic cough Category: Medical (5) Liver lesion: Code(s): K76.9 - Liver disease, unspecified Category: Medical (6) Vitamin D deficiency: Code(s): E55.9 - Vitamin D deficiency, unspecified Category: Medical Plan . Orders: Orders Complete Blood Count Auto Diff Today Z00. - Encounter for general adult medical examination with abnormal findings TSH reflex Free T4 Today Z00. - Encounter for general adult medical examination with abnormal findings UA CC w/rflx Micro + Cult Today Z00. - Encounter for general adult medical examination with abnormal findings Lipid Panel Today Z00. - Encounter for general adult medical examination with abnormal findings Comprehensive [place]. Panel Fast Today Z00. - Encounter for general adult medical examination with abnormal findings Vitamin D 25-OH Total Today E55.9 - Vitamin D deficiency, unspecified
--- OUTSIDE RECORDS SUMMARY | 2025-03-08 11:06 | XMS_ITS | Clinical Summary ---
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 Not on file Not [...] topic Medical Devices Not on file Insurance [facility] NON NSPG [place] [facility] [address] [place], [place] [address] NON NSPG PCP [facility] [place] [address] [address] NON NSPG PCP [facility] [address] [place] [address] NON NSPG PCP [facility] [place] [address] NON NSPG PCP [facility] [place] [address] [place] [address] NON NSPG PCP [facility] [address] [place], [place] [address] NON NSPG PCP [facility] NON NSPG PCP [facility] Care Teams Grinder Dresser Relationship Specialty Start Date End Date Pcp, Unknown PCP - General 09/17/18 Additional Source Comments The information contained in this document represents components of the legal health record. It is not the complete legal health record.[facility]
== END 2025-03-08 10:32 | disposition home or self-care (01) ==
LOC: HO.HMCC 09:34
PROVIDERS: PCP Nurse Practitioner Family; Visit Provider Nurse Practitioner Family
DX: Z00.01 Encounter for general adult medical examination with abnormal findings (principal); J45.909 Unspecified asthma, uncomplicated; R91.8 Other nonspecific abnormal finding of lung field; R05.3 Chronic cough; K76.9 Liver disease, unspecified; E55.9 Vitamin D deficiency, unspecified

== ENCOUNTER → 2025-03-08 09:33 | Outpatient (BNVA) | payer OTHER, SELFPAY | PROVIDERS: PCP Nurse Practitioner Family; Visit Provider Nurse Practitioner Family | DX: Z13.31 Encounter for screening for depression (principal) | CPT/HCPCS: 96127 ==

== ENCOUNTER 2025-03-20 07:24 | Outpatient (REF) | payer OTHER, SELFPAY ==
--- OUTSIDE RECORDS SUMMARY | 2025-03-20 09:01 | XMS_ITS | Clinical Summary ---
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 file Not [...] topic Medical Devices Not on file Insurance [facility] Address: [facility] [address] [place] [address] [facility] NON [facility] PCP [facility] [address] [place], [place] [address]ENSE NON [place]SPG PCP [facility] [place] [id number] NON NSPG PCP [facility] [address] [place], [place] [address]ENSE NON NSPG PCP [facility] [place] [address] NON NSPG PCP [facility] [place] [address] NON NSPG PCP [facility] [address] [place], [place] [address]ENSE NON NSPG PCP S[facility] NON [facility]SPG [facility]CP [facility] Care Teams Rn Registry Relationship Specialty Start Date End Date Pcp, Unknown PCP - General 09/17/18 Additional Source Comments The information contained in this document represents components of the legal health record. It is not the complete legal health record.[facility]
[2025-03-20 10:23] LABS: Appearance Urine Clear; Glucose Urine UA Negative (Negative); PH 8.0 (5.0-9.0); Specific Gravity - Urine 1.020 (1.005-1.025); UMIC TRIGGER UACC YES
[2025-03-20 10:31] LABS: MANUAL DIFF FLAG NO
[2025-03-20 10:46] LABS: Hematocrit 43.2 % (37.0-47.0); Hemoglobin 14.5 g/dl (12.0-16.0); Imm Gran Abs Auto 0.03 X10*3/uL (0.00-0.03); Imm Gran Pct Auto 0.4 % (0.0-0.4); Lymphocytes Absolute Auto 1.9 X10*3/uL (1.2-4.9); Mean Corpuscular HGB Conc 33.6 g/dl (31.0-35.0); Mean Corpuscular Hemoglobin 29.7 pg (27.0-33.0); Mean Corpuscular Volume 88.3 fL (80.0-98.0); NRBC Abs Auto 0.000 X10*3/uL (0.0-0.012); NRBC Pct Auto 0.0 /100WBC (0.0-0.2); Platelet Count 373 X10*3/uL (160-400); Red Blood Count 4.89 X10*6/uL (4.20-5.50); White Blood Count 7.0 X10*3/uL (4.8-10.8)
[2025-03-20 11:10] LABS: Alanine Aminotransferase 12 U/L (0-31); Albumin Level 4.2 g/dL (3.5-5.0); Alkaline Phosphatase 62 U/L (39-117); Anion Gap 9 (12-20); Aspartate Amino Transferase 21 U/L (5-31); Blood Urea Nitrogen 7 mg/dL (9-16); Calcium 8.7 mg/dL (8.4-10.2); Carbon Dioxide 25 mmol/L (22-29); Chloride 109 mmol/L (96-108); Cholesterol 188 mg/dL (<200); Estimated Glomerular Filt Rate > 60; HDL Cholesterol 42 mg/dL (>40); Potassium 4.0 mmol/L (3.3-5.1); Sodium 139 mmol/L (135-145); Total Protein 7.2 g/dL (6.5-8.0); Triglycerides 121 mg/dL (<150)
== END 2025-03-20 07:25 | disposition home or self-care (01) ==
LOC: HO.HMGCLDS 07:24
PROVIDERS: PCP Nurse Practitioner Family; Visit Provider Nurse Practitioner Family
DX: Z00.00 Encounter for general adult medical examination without abnormal findings (principal); R05.3 Chronic cough; J45.909 Unspecified asthma, uncomplicated; R91.8 Other nonspecific abnormal finding of lung field; E55.9 Vitamin D deficiency, unspecified; Z13.29 Encounter for screening for other suspected endocrine disorder; Z13.6 Encounter for screening for cardiovascular disorders
CPT/HCPCS: 36415; 80053; 80061; 81001; 82306; 84443; 85025

== ENCOUNTER 2025-03-20 11:27 | Outpatient (AMB) | payer OTHER, SELFPAY ==
--- NOTE | 2025-03-20 11:34 | A.OFFVIS_ITS ---
Vital Signs 03/20/25 11:35 Height 5 ft 2 in Weight 179 lb 2 oz BMI 32.8 BP 108/66 Blood Pressure Location Rt brachial Position Sitting Pulse 86 Pulse Source Pulse Oximeter Pulse Oximetry (%) 100 Oxygen Delivery Method Room Air Intake Visit Reasons: chronic cough Allergies codeine Allergy (Unknown, Verified 03/20/25 11:36) nausea and vomiting HPI Comments Details: Lexie is a pleasant 34 year old female, former less than 5 pack year smoker, quit 2009 with underlying asthma, hypothyroidism and anxiety. She continues with persistent dry cough, currently recovering from URI. Her symptoms started over a year ago and she has previously been treated with antibiotics and short courses of prednisone for a maximum of [address] scan showed a stable nodule of RML with surrounding inflammation, and blood work has shown a slight elevation in her YESSICA. She has a referral to see a filament cutter in July. Her medical history is notable for asthma, for which she uses Breo and a rescue inhaler. She reports occasional acid reflux and recalls taking omeprazole for about two weeks previously with unknown effects on cough. The patient also takes thyroid medication and started an antidepressant approximately two months ago. Pulmonology History - Chronic cough for over one year. - History of asthma, treated with Breo and albuterol as needed. - CT scan showed a stable pulmonary nodule with surrounding inflammation in the right middle lobe. - Previous unsuccessful treatments include short courses of prednisone and antibiotics. - Sputum is typically dry or clear.. - No recent hospitalizations or visits to urgent care. [facility] Medical History Vertigo Chronic headaches Hypersomnia Snoring Pulmonary nodules Right flank pain Recurrent major depressive disorder in partial remission Bilateral headaches Irregular menses Acquired hypothyroidism Surgical History History of tooth extraction Family History Father Cholesterol embolus syndrome Substance use disorder Mental health disorder Mother Multiple sclerosis Mental health disorder Brother Substance use disorder Paternal Grandfather Substance use disorder Social History (Reviewed 03/20/25 @ 11:36 by Lory Perez [facility]) Household Members: Spouse and Children Housing: House Alcohol intake: former Patient Tobacco Use Status: Former Tobacco user Cigarette Packs Per Day: 0.5 Years Smoked: 8 e-Cigarette/Vaping Use: Never Used Second Hand Smoke Exposure: No (sometimes ) service: No Current occupational status: employed 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 Sexual orientation: Straight/Heterosexual Gender identity: Female Cognitive needs: No Hearing needs: No Vision needs: No Female Reproductive History Menstrual Age of Menarche: 10 Review of Systems Narrative Const Denies chills, Denies excessive sweating, Denies fever(s), Denies headache(s) and Denies night sweats Eyes Denies dry eyes, Denies irritation and Denies itchy eyes ENT Reports Normal hearing present, Denies headache(s), Denies nasal congestion, Denies nasal discharge, Denies post nasal drip and Denies sore throat Card Denies chest pain, Denies chest pain at rest, Denies chest pain with activity, Denies claudication, Denies leg edema, Denies orthopnea and Denies paroxysmal nocturnal dyspnea Resp Denies excessive phlegm production, Denies pain on inspiration, Denies pain with cough and Denies stridor Musc Denies myalgias Neuro Reports Normal hearing present and Denies headache(s) Endo Denies excessive sweating Doug/Lymph Denies lymphadenopathy Aller/Immun Denies itchy eyes and Denies seasonal rhinorrhea Physical Exam Exam Exam: Vital Signs: Last Vital Signs Pulse 86 03/20/25 11:35 BP 108/66 03/20/25 11:35 Pulse Ox 100 03/20/25 11:35 Oxygen Delivery Method Room Air 03/20/25 11:35 BMI result Body Mass Index 32.8 Const General: cooperative, healthy appearing, comfortable, no acute distress, well developed and alert Nutritional Appearance: obese Orientation/consciousness: patient oriented x3 Limitations: no limitations HEENT Head: Yes normal to inspection, Yes normocephalic and Yes atraumatic Ears: hearing grossly normal bilaterally and external ears normal Eyes General: appearance normal, both eyes and all related structures Eyelids: Yes eyelids normal Sclerae: sclerae normal EOM: EOMs intact bilaterally Neck Neck: Yes normal visual inspection and Yes no lymphadenopathy Lymphatic: no lymphadenopathy noted Chest Chest palpation & inspection: normal inspection of the chest Resp Other: post exhalation cough Effort & Inspection: normal respiratory effort, able to speak in complete sentences, no audible wheezes, Actively coughing, no stridor, not tachypneic, no tripod positioning and no use of accessory muscles Auscultation: diminished lung sounds Cardio Jugular venous distension: no JVD Rate: regular rate Rhythm: regular rhythm Skin Other: warm, dry General skin exam: no rashes or lesions noted Neuro General: patient oriented x3 Cranial nerves: Yes Normal hearing present Cognition (Neuro): normal cognition Gait exam (Neuro): Normal gait present Extrem General: Yes normal to inspection, Yes capillary refill normal, Yes no clubbing, cyanosis or edema and Yes no pedal edema Psych Appearance: grossly normal and well kempt Speech and movement: Normal speech and movement present and Clear speech present Affect: normal affect Attitude: cooperative Thought process: Normal thought process present Thought content: Normal thought content present Insight: Good insight present (Psych) Judgement: Good judgement present (Psych) Results Reviewed Results Reviewed: [address] [address] [address] Scan Report Signed Patient: Lexie Jenkins MR#: [id number] : 1990 Acct:[id number] Age/Sex: 34 / F ADM Date: 01/22/25 Loc: HO.CT Attending Dr: Link DUKE Ordering Physician: Link Carranza Date of Service: 01/22/25 Procedure(s): CT chest w IV con Accession Number(s): [id number] cc: Link Carranza; Adeline Ferrera NP~ Report Number: [id number]: Total DLP = 120.00 mGy-cm Reason for Exam: R91.8 - Other nonspecific abnormal finding of lung field EXAMINATION: CT CHEST WITH CONTRAST CLINICAL INFORMATION: Other nonspecific abnormal finding of lung field. Follow-up nodules. COMPARISON: 08/01/2024 CT chest. TECHNIQUE: Multidetector volumetric CT imaging of the chest was obtained after the administration of 60 mL of Omnipaque 350 intravenous contrast without immediate adverse reactions. Axial MIP volume rendering provided. Sagittal and coronal reformatted images were obtained. This CT examination was performed using dose optimization techniques as appropriate, variously including the following: *Automated exposure control *Adjustment of mA and/or kV according to patient size (this includes techniques or standardized protocols for targeted exams where dose is matched to indication/reason for exam; i.e. extremities or head) *Use of iterative reconstruction technique FINDINGS: NODULES: 5 mm nodule right lung apex, unchanged (series 5, image 32). 5 mm nodule in the right middle lobe abutting the minor fissure is unchanged (series 5, image 73). There are a group of centrilobular nodules in the right upper lobe medially, also unchanged (series 5, image 61). There is a 4 mm nodule right middle lobe (series 5, image 82), unchanged. There is a 3 mm subpleural nodule in the left posterior costophrenic sulcus (series 5, image 124), unchanged. No new or enlarging pulmonary nodule. LUNGS: The lungs are well inspired. There is mild stable scarring in the superior right middle lobe distribution, unchanged. Lungs are otherwise clear. Small airways are normal. There is no effusion or pneumothorax. MEDIASTINUM: The partially imaged thyroid is grossly normal. There is no mediastinal mass. Borderline enlarged hilar lymph nodes are stable. The 7 mm right paratracheal lymph node is unchanged. The aorta is normal in caliber and course. The main pulmonary artery is normal in caliber. The heart size is normal. There is no pericardial effusion. The central airways are patent. No esophageal abnormality is noted. AXILLA/CHEST WALL: No masses or abnormal lymph nodes present. UPPER ABDOMEN: Hepatic dome hypodensities previously mentioned are unchanged and stable, favoring benignity. Imaged upper abdominal contents otherwise normal. OSSEOUS STRUCTURES: No suspicious lytic or blastic bone lesions. CT/CT chest w IV con IMPRESSION: 1. A few scattered pulmonary nodules measuring up to 5 mm are stable, and benign. There are no new or enlarging pulmonary nodules present. 2. Mildly prominent hilar lymph nodes are also stable, and benign. These are consistent with reactive etiology. 3. Stable nonspecific subcentimeter hypodensities involving the dome of the liver, unchanged. 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 Two treatment options were discussed: a longer, higher-dose course of prednisone for possible ILD, or a trial of high-dose omeprazole. Given the patient's concerns about potential psychiatric side effects from prednisone, the decision was made to first initiate a trial of omeprazole 40 mg daily for 6 weeks. If her cough does not improve, a course of prednisone will be reconsidered. Although the patient reports only occasional symptoms, silent reflux is suspected as a possible contributor to her chronic cough via microaspiration, which could explain the inflammation seen on her CT scan. A trial of omeprazole 40 mg daily for 6 weeks will be initiated. If this is effective, she may continue on a lower maintenance dose of 20 mg. The patient will continue her current asthma management. She is to continue using Breo daily and her rescue inhaler as needed for symptoms. All questions were answered and patient is in agreement of plan. Will follow up in 6-8 weeks or sooner if needed. Patient Instructions - Take one capsule of omeprazole 40 mg every morning for the next 6 weeks to treat possible acid reflux that may be causing your cough. - If the medication helps your cough, you can continue it long-term at a lower dose of 20 mg per day. - Continue to use your Breo inhaler every day for asthma. - Continue to use your rescue inhaler as needed for coughing or breathing difficulties. - Call the office if your cough gets worse, or if you start coughing up more mucus, as this could be a sign of infection. - A follow-up appointment is scheduled for 6 to 8 weeks from now. Patient was informed and verbally consented to the use of an ambient scribe for clinic note documentation during this visit. Medications: New omeprazole 40 mg PO DAILY 30 caps 2RF Coding Level of Care Code Est Pt Level 4 (38428) Diagnoses Chronic cough R05.3 Asthma J45.909 Pulmonary nodules R91.8
[2025-03-20 11:35] VITALS: BP 108/66; PULSE 86; O2SAT 100; BMI 32.8
== END 2025-03-20 11:57 | disposition home or self-care (01) ==
LOC: HO.HPSW 11:28
PROVIDERS: PCP Nurse Practitioner Family; Visit Provider Nurse Practitioner Family
DX: R05.3 Chronic cough (principal); J45.909 Unspecified asthma, uncomplicated; R91.8 Other nonspecific abnormal finding of lung field
CPT/HCPCS: 99214